=== PATIENT | female | born 1965 | race Caucasian/White ===

== ENCOUNTER 2018-12-17 17:30 | Emergency (ER) | payer OTHER ==
[2018-12-17 17:36] VITALS: RESP 18
--- NOTE | 2018-12-17 18:32 | ED ---
Psych HPI - General Chief Complaint: Psychiatric Symptoms Stated Complaint: Mental Health Time Seen by Provider: 12/17/18 17:44 Source: patient, RN notes reviewed Mode of arrival: ambulatory - History of Present Illness Initial Comments: This is a 53-year-old female with a history depression and suicidal thoughts and states he is feeling very depressed and has suicidal thought chest today but none today. She's been dealing with this for quite a while she states her committed suicide 2002 since that time she's had intermittent thoughts of suicide. No particular plan at this time she states she's feeling better about things today. She still feeling depressed. Also she does states she's been feeling tired lately) chest pain shortness of breath fevers chills or sweats or other symptoms she did have a 60 pound weight gain in about a year but she states she's lost about 40 evidence he is concerned about thyroid disease. MD Complaint: suicidal ideation, feels depressed - Related Data Home Medications Medication Instructions Recorded Confirmed No Known Home Medications 12/17/18 12/17/18 Allergies Allergy/AdvReac Type Severity Reaction Status Date / Time Sulfa (Sulfonamide Allergy Unknown Verified 12/17/18 18:42 Antibiotics) Review of Systems ROS Statement: Those systems with pertinent positive or pertinent negative responses have been documented in the HPI. ROS Other: All systems not noted in ROS Statement are negative. Past Medical History Past Medical History: Thyroid Disorder History of Any Multi-Drug Resistant Organisms: None Reported Past Surgical History: Section, Hysterectomy Past Psychological History: Anxiety, Depression Smoking Status: Former smoker Past Alcohol Use History: None Reported Past Drug Use History: None Reported General Exam - General Exam Comments Initial Comments: This a well-developed well-nourished awake alert oriented 3 female Limitations: no limitations General appearance: alert, in no apparent distress Head exam: Present: atraumatic, normocephalic, normal inspection Eye exam: Present: normal appearance, PERRL, EOMI. Absent: scleral icterus, conjunctival injection, periorbital swelling ENT exam: Present: normal exam, mucous membranes moist Neck exam: Present: normal inspection. Absent: tenderness, meningismus, lymp hadenopathy Respiratory exam: Present: normal lung sounds bilaterally. Absent: respiratory distress, wheezes, rales, rhonchi, stridor Cardiovascular Exam: Present: regular rate, normal rhythm, normal heart sounds. Absent: systolic murmur, diastolic murmur, rubs, gallop, clicks GI/Abdominal exam: Present: soft, normal bowel sounds. Absent: distended, tenderness, guarding, rebound, rigid Extremities exam: Present: normal inspection, full ROM, normal capillary refill. Absent: tenderness, pedal edema, joint swelling, calf tenderness Back exam: Present: normal inspection Neurological exam: Present: alert, oriented X3, CN II-XII intact Psychiatric exam: Present: depressed, flat affect. Absent: suicidal ideation Skin exam: Present: warm, dry, intact, normal color. Absent: rash Course Vital Signs 12/17/18 17:32 Temperature 98.0 F Pulse Rate 65 Respiratory 18 Rate Blood Pressure 127/77 O2 Sat by Pulse 96 Oximetry Medical Decision Making - Medical Decision Making Patient was evaluated by the psychiatric service she will be discharged with outpatient referrals he is not a risk to herself or anyone else at this time. I did discuss her lab findings with her. She will follow-up - Lab Data Result diagrams: 12/17/18 18:37 12/17/18 18:37 Lab Results 12/17/18 12/17/18 12/17/18 Range/Units 18:37 18:37 18:37 WBC 5.7 (3.8-10.6) k/uL RBC 4.40 (3.80-5.40) m/uL Hgb 13.2 (11.4-16.0) gm/dL Hct 39.3 (34.0-46.0) % MCV 89.4 (80.0-100.0) fL MCH 30.0 (25.0-35.0) pg MCHC 33.6 (31.0-37.0) g/dL RDW 13.4 (11.5-15.5) % Plt Count 218 (150-450) k/uL Neutrophils % 53 % Lymphocytes % 37 % Monocytes % 6 % Eosinophils % 2 % Basophils % 1 % Neutrophils # 3.0 (1.3-7.7) k/uL Lymphocytes # 2.1 (1.0-4.8) k/uL Monocytes # 0.3 (0-1.0) k/uL Eosinophils # 0.1 (0-0.7) k/uL Basophils # 0.1 (0-0.2) k/uL Sodium 140 (137-145) mmol/L Potassium 3.6 (3.5-5.1) mmol/L Chloride 107 (98-107) mmol/L Carbon Dioxide 24 (22-30) mmol/L Anion Gap 9 mmol/L BUN 9 (7-17) mg/dL Creatinine 0.60 (0.52-1.04) mg/dL Est GFR (CKD-EPI)AfAm >90 (>60 ml/min/1.73 sqM) Est GFR (CKD-EPI)NonAf >90 (>60 ml/min/1.73 sqM) Glucose 131 H (74-99) mg/dL Calcium 9.6 (8.4-10.2) mg/dL Magnesium 2.2 (1.6-2.3) mg/dL Total Bilirubin 0.5 (0.2-1.3) mg/dL AST 24 (14-36) U/L ALT 19 (9-52) U/L Alkaline Phosphatase 60 (38-126) U/L Creatine Kinase 119 (30-135) U/L Troponin I <0.012 (0.000-0.034) ng/mL Total Protein 7.0 (6.3-8.2) g/dL Albumin 4.5 (3.5-5.0) g/dL TSH 1.170 (0.465-4.680) mIU/L Urine Opiates Screen (NotDetected) Ur Oxycodone Screen (NotDetected) Urine Methadone Screen (NotDetected) Ur Propoxyphene Screen (NotDetected) Ur Barbiturates Screen (NotDetected) U Tricyclic Antidepress (NotDetected) Ur Phencyclidine Scrn (NotDetected) Ur Amphetamines Screen (NotDetected) U Methamphetamines Scrn (NotDetected) U Benzodiazepines Scrn (NotDetected) Urine Cocaine Screen (NotDetected) U Marijuana (THC) Screen (NotDetected) 12/17/18 Range/Units 18:37 WBC (3.8-10.6) k/uL RBC (3.80-5.40) m/uL Hgb (11.4-16.0) gm/dL Hct (34.0-46.0) % MCV (80.0-100.0) fL MCH (25.0-35.0) pg MCHC (31.0-37.0) g/dL RDW (11.5-15.5) % Plt Count (150-450) k/uL Neutrophils % % Lymphocytes % % Monocytes % % Eosinophils % % Basophils % % Neutrophils # (1.3-7.7) k/uL Lymphocytes # (1.0-4.8) k/uL Monocytes # (0-1.0) k/uL Eosinophils # (0-0.7) k/uL Basophils # (0-0.2) k/uL Sodium (137-145) mmol/L Potassium (3.5-5.1) mmol/L Chloride (98-107) mmol/L Carbon Dioxide (22-30) mmol/L Anion Gap mmol/L BUN (7-17) mg/dL Creatinine (0.52-1.04) mg/dL Est GFR (CKD-EPI)AfAm (>60 ml/min/1.73 sqM) Est GFR (CKD-EPI)NonAf (>60 ml/min/1.73 sqM) Glucose (74-99) mg/dL Calcium (8.4-10.2) mg/dL Magnesium (1.6-2.3) mg/dL Total Bilirubin (0.2-1.3) mg/dL AST (14-36) U/L ALT (9-52) U/L Alkaline Phosphatase (38-126) U/L Creatine Kinase (30-135) U/L Troponin I (0.000-0.034) ng/mL Total Protein (6.3-8.2) g/dL Albumin (3.5-5.0) g/dL TSH (0.465-4.680) mIU/L Urine Opiates Screen Not Detected (NotDetected) Ur Oxycodone Screen Not Detected (NotDetected) Urine Methadone Screen Not Detected (NotDetected) Ur Propoxyphene Screen Not Detected (NotDetected) Ur Barbiturates Screen Not Detected (NotDetected) U Tricyclic Antidepress Not Detected (NotDetected) Ur Phencyclidine Scrn Not Detected (NotDetected) Ur Amphetamines Screen Not Detected (NotDetected) U Methamphetamines Scrn Not Detected (NotDetected) U Benzodiazepines Scrn Not Detected (NotDetected) Urine Cocaine Screen Not Detected (NotDetected) U Marijuana (THC) Screen Not Detected (NotDetected) Disposition Clinical Impression: Depression, Adjustment reaction Disposition: HOME SELF-CARE Condition: Good Instructions (If sedation given, give patient instructions): Depression (ED), Mood Disorders (ED) Is patient prescribed a controlled substance at d/c from ED?: No Referrals: None,Stated [Primary Care Provider] - 1-2 days
[2018-12-17 18:51] LABS: Basophils # (A) 0.1 k/uL (0-0.2); Basophils % (A) 1 %; Eosinophils # (A) 0.1 k/uL (0-0.7); Eosinophils % (A) 2 %; HCT 39.3 % (34.0-46.0); HGB 13.2 gm/dL (11.4-16.0); Lymphocytes # (A) 2.1 k/uL (1.0-4.8); Lymphocytes % (A) 37 %; MCHC 33.6 g/dL (31.0-37.0); MCV 89.4 fL (80.0-100.0); Mean Platelet Volume 8.5; Monocytes # (A) 0.3 k/uL (0-1.0); Monocytes % (A) 6 %; Neutrophils % (A) 53 %; Platelet Count 218 k/uL (150-450); RDW 13.4 % (11.5-15.5); WBC 5.7 k/uL (3.8-10.6)
[2018-12-17 19:04] LABS: Amphetamine Screen,Urine Not Detected (NotDetected); Barbiturate Screen,Urine Not Detected (NotDetected); Benzodiazepines Screen,Urine Not Detected (NotDetected); Cocaine Screen,Urine Not Detected (NotDetected); Methadone Screen, Urine Not Detected (NotDetected); Opiate Screen,Urine Not Detected (NotDetected); Oxycodone Screen, Urine Not Detected (NotDetected); Phencyclidine Screen,Urine Not Detected (NotDetected); Tricyclic Antidepressant,Urine Not Detected (NotDetected); Urn Cannabinoid Scrn Not Detected (NotDetected)
[2018-12-17 19:09] LABS: ALT 19 U/L (9-52); AST 24 U/L (14-36); African American GFR (CKD) >90 (>60 ml/min/1.73 sqM); Albumin 4.5 g/dL (3.5-5.0); Alkaline Phosphatase 60 U/L (38-126); Anion Gap 9 mmol/L; Blood Urea Nitrogen 9 mg/dL (7-17); Calcium 9.6 mg/dL (8.4-10.2); Carbon Dioxide 24 mmol/L (22-30); Chloride 107 mmol/L (98-107); Creatine Kinase 119 U/L (30-135); Glucose 131 mg/dL (74-99); Magnesium 2.2 mg/dL (1.6-2.3); Potassium 3.6 mmol/L (3.5-5.1); Sodium 140 mmol/L (137-145); Total Bilirubin 0.5 mg/dL (0.2-1.3)
[2018-12-17 21:49] VITALS: BP 130/69; PULSE 73; TEMP 97.7
== END 2018-12-17 21:49 | disposition home or self-care (01) ==
LOC: EC 17:30
DX: F43.20 Adjustment disorder, unspecified (principal); F32.9 Major depressive disorder, single episode, unspecified; Z88.2 Allergy status to sulfonamides; Z87.891 Personal history of nicotine dependence
CPT/HCPCS: 36415; 80053; 80306; 82075; 82550; 83735; 84443; 84484; 85025; 99285

== ENCOUNTER 2020-10-09 13:40 | Emergency (ER) | payer OTHER ==
[2020-10-09 13:45] VITALS: TEMP 97.8
--- NOTE | 2020-10-09 14:28 | ED ---
General Adult HPI - General Chief complaint: Psychiatric Symptoms Stated complaint: Mental health Time Seen by Provider: 10/09/20 13:46 Source: patient, RN notes reviewed Mode of arrival: ambulatory Limitations: no limitations - History of Present Illness Initial comments: 85-year-old female presents to the emergency room for a chief complaint of lump on chest. Patient reports she has had a lump on her chest wall/epigastric region for at least the past year. States she does not have insurance so has not followed up. Patient reports that her son wanted her checked out for this. Patient also states he wanted her to have a psych evaluation because of her homelessness. States that another hospital when she was admitted she had a psych evaluation automatically because she was homeless. Patient denies any suicidal or homicidal thoughts. Denies depression. Patient is otherwise feeling well aside from noticing this month a year ago.Patient has no other complaints at this time including shortness of breath, chest pain, abdominal pain, nausea or vomiting, headache, or visual changes. - Related Data Home Medications Medication Instructions Recorded Confirmed No Known Home Medications 12/17/18 12/17/18 Allergies Allergy/AdvReac Type Severity Reaction Status Date / Time Sulfa (Sulfonamide Allergy Unknown Verified 10/09/20 13:45 Antibiotics) Review of Systems ROS Statement: Those systems with pertinent positive or pertinent negative responses have been documented in the HPI. ROS Other: All systems not noted in ROS Statement are negative. Past Medical History Past Medical History: Thyroid Disorder History of Any Multi-Drug Resistant Organisms: None Reported Past Surgical History: Section, Hysterectomy Past Psychological History: Anxiety, Depression Smoking Status: Former smoker Past Alcohol Use History: None Reported Past Drug Use History: None Reported General Exam Limitations: no limitations General appearance: alert, in no apparent distress Head exam: Present: atraumatic, normocephalic, normal inspection Eye exam: Present: normal appearance, PERRL, EOMI. Absent: scleral icterus, conjunctival injection, periorbital swelling ENT exam: Present: normal exam, mucous membranes moist Neck exam: Present: normal inspection, full ROM. Absent: tenderness, meningismus, lymphadenopathy Respiratory exam: Present: normal lung sounds bilaterally, other (Patient has a 1 cm x 1 cm nodule noted in this infrasternal area epigastric region.). Absent: respiratory distress, wheezes, rales, rhonchi, stridor Cardiovascular Exam: Present: regular rate, normal rhythm, normal heart sounds. Absent: systolic murmur, diastolic murmur, rubs, gallop, clicks GI/Abdominal exam: Present: soft, normal bowel sounds. Absent: distended, tenderness, guarding, rebound, rigid Neurological exam: Present: alert, oriented X3 Psychiatric exam: Absent: homicidal ideation, suicidal ideation Course Vital Signs 10/09/20 13:42 Temperature 97.8 F Pulse Rate 50 L Respiratory 18 Rate Blood Pressure 117/70 O2 Sat by Pulse 97 Oximetry Medical Decision Making - Medical Decision Making Vitals are stable. Patient is well-appearing. She does not have any suicidal or homicidal thoughts. No thoughts of harming herself. No depression. She simply wanted a psych evaluation for her homelessness. However she reports she does not want any referrals to any shelters. She has been homeless for 3 years now and has been caring for herself. She reports she only came in because her son was worried that she was still homeless. I did attempt to call her son Mario Alberto however he did not answer and his voicemail was full so I could not leave a message. Patient also request I check a urinalysis on her and she has had some dysuria over the past couple days. We will treat her given 6 WBCs and few bacteria as she is symptomatic. She is going to be staying with her sister for the next several days. - Lab Data Lab Results 10/09/20 Range/Units 14:21 Urine Color Colorless Urine Appearance Clear (Clear) Urine pH 5.5 (5.0-8.0) Ur Specific [place] 1.004 (1.001-1.035) Urine Protein Negative (Negative) Urine Glucose (UA) Negative (Negative) Urine Ketones Negative (Negative) Urine Blood Negative (Negative) Urine Nitrite Negative (Negative) Urine Bilirubin Negative (Negative) Urine Urobilinogen <2.0 (<2.0) mg/dL Ur Leukocyte Esterase Large H (Negative) Urine RBC 1 (0-5) /hpf Urine WBC 6 H (0-5) /hpf Ur Squamous Epith Cells 1 (0-4) /hpf Urine Bacteria Few H (None) /hpf Disposition Clinical Impression: UTI (urinary tract infection), Nodule of soft tissue Disposition: HOME SELF-CARE Condition: Good Instructions (If sedation given, give patient instructions): Soft Tissue Mass (ED) Additional Instructions: Please follow up with primary care or general surgery. Return to ER for any worsening symptoms. Is patient prescribed a controlled substance at d/c from ED?: No Referrals: Gideon Ovalle DO [Doctor of Osteopathic Medicine] - 1-2 days Time of Disposition: 14:49
[2020-10-09 14:31] LABS: Appearance,Urine Clear (Clear); Bacteria,Urine Few /hpf; Bilirubin,Urine Negative (Negative); Blood,Urine Negative (Negative); Color,Urine Colorless; Glucose,Urine (UA) Negative (Negative); Ketones,Urine Negative (Negative); Leukocyte Esterase,Urine Large (Negative); Nitrite,Urine Negative (Negative); PH, Urine 5.5 (5.0-8.0); Protein,Urine Negative (Negative); RBC,Urine 1 /hpf (0-5); Specific Gravity,Urine 1.004 (1.001-1.035); Squamous Epithelial Cell,Urine 1 /hpf (0-4); Urobilinogen,Urine <2.0 mg/dL (<2.0); WBC,Urine 6 /hpf (0-5)
[2020-10-09] MEDS ORDERED: CEPHALEXIN 500MG STARTER PACK 4 CAP BTL PO STA (14:46)
[2020-10-09 15:41] VITALS: BP 116/72; PULSE 51; RESP 16
== END 2020-10-09 15:40 | disposition home or self-care (01) ==
LOC: EC 13:40
DX: N39.0 Urinary tract infection, site not specified (principal); R22.2 Localized swelling, mass and lump, trunk; Z59.0 Homelessness; Z87.891 Personal history of nicotine dependence; Z88.2 Allergy status to sulfonamides
CPT/HCPCS: 81001; 99283

== ENCOUNTER 2022-05-12 23:39 | Inpatient (IN) | payer BC, MEDICAID, OTHER ==
[2022-05-13 01:16] LABS: Basophils # (A) 0.1 k/uL (0-0.2); Basophils % (A) 1 %; Eosinophils # (A) 0.1 k/uL (0-0.7); Eosinophils % (A) 2 %; HCT 36.3 % (34.0-46.0); HGB 13.2 gm/dL (11.4-16.0); Lymphocytes # (A) 2.7 k/uL (1.0-4.8); Lymphocytes % (A) 32 %; MCH 31.6 pg (25.0-35.0); MCHC 36.3 g/dL (31.0-37.0); MCV 87.1 fL (80.0-100.0); Mean Platelet Volume 9.8; Monocytes # (A) 0.6 k/uL (0-1.0); Monocytes % (A) 7 %; Neutrophils # (A) 4.6 k/uL (1.3-7.7); Neutrophils % (A) 56 %; Platelet Count 217 k/uL (150-450); RBC 4.16 m/uL (3.80-5.40); RDW 13.6 % (11.5-15.5); WBC 8.3 k/uL (3.8-10.6)
[2022-05-13 01:25] LABS: ALT 32 U/L (4-34); AST 37 U/L (14-36); Acetaminophen <10.0 ug/mL; African American GFR (CKD) >90 (>60 ml/min/1.73 sqM); Albumin 4.1 g/dL (3.5-5.0); Alcohol <10 mg/dL; Alkaline Phosphatase 59 U/L (38-126); Anion Gap 8 mmol/L; Blood Urea Nitrogen 17 mg/dL (7-17); Carbon Dioxide 23 mmol/L (22-30); Chloride 105 mmol/L (98-107); Glucose 94 mg/dL (74-99); Non-African American GFR(CKD) >90 (>60 ml/min/1.73 sqM); Potassium 3.3 mmol/L (3.5-5.1); Salicylate <1.0 mg/dL; Sodium 136 mmol/L (137-145); Total Bilirubin 0.6 mg/dL (0.2-1.3); Total Protein 6.2 g/dL (6.3-8.2)
[2022-05-13 01:28] LABS: Appearance,Urine Clear (Clear); Bacteria,Urine Rare /hpf; Bilirubin,Urine Negative (Negative); Blood,Urine Negative (Negative); Color,Urine Yellow; Glucose,Urine (UA) Trace (Negative); Hyaline Casts,Urine 1 /lpf (0-2); Ketones,Urine Negative (Negative); Leukocyte Esterase,Urine Large (Negative); Mucus,Urine Moderate /hpf; Nitrite,Urine Negative (Negative); PH, Urine 5.5 (5.0-8.0); Protein,Urine Negative (Negative); RBC,Urine 2 /hpf (0-5); Specific Gravity,Urine 1.011 (1.001-1.035); Squamous Epithelial Cell,Urine 1 /hpf (0-4); Transitional Epi Cells,Urine <1 /hpf (0-1); Urobilinogen,Urine <2.0 mg/dL (<2.0); WBC,Urine 19 /hpf (0-5)
[2022-05-13 01:31] LABS: Amphetamine Screen,Urine Not Detected (NotDetected); Barbiturate Screen,Urine Not Detected (NotDetected); Benzodiazepines Screen,Urine Not Detected (NotDetected); Cocaine Screen,Urine Not Detected (NotDetected); Methadone Screen, Urine Not Detected (NotDetected); Opiate Screen,Urine Not Detected (NotDetected); Oxycodone Screen, Urine Not Detected (NotDetected); Phencyclidine Screen,Urine Not Detected (NotDetected); Tricyclic Antidepressant,Urine Not Detected (NotDetected); Urn Cannabinoid Scrn Not Detected (NotDetected)
--- NOTE | 2022-05-13 02:08 | ED ---
Psych HPI - General Chief Complaint: Psychiatric Symptoms Stated Complaint: mental health Time Seen by Provider: 05/13/22 00:47 Source: EMS Mode of arrival: EMS Limitations: physical limitation (Patient declined to give history) - History of Present Illness Initial Comments: This patient is 56-year-old woman who reportedly has history of psychiatric dis order brought to have psychiatric evaluation. The patient reportedly had been found by local police standing in front of her vehicle and then was not explaining how she came to be there are what she was doing. On arrival here, patient not forthcoming regarding this. She did speak a few words to my colleague but was not forthcoming with me. MD Complaint: altered mental status -: unknown History of same: Yes - Related Data Previous Rx's Medication Instructions Recorded Cephalexin [Keflex] 500 mg PO BID 7 Days #14 cap 10/09/20 Allergies Allergy/AdvReac Type Severity Reaction Status Date / Time Sulfa (Sulfonamide Allergy Unknown Verified 05/13/22 04:43 Antibiotics) Review of Systems ROS Statement: Those systems with pertinent positive or pertinent negative responses have been documented in the HPI. ROS Other: All systems not noted in ROS Statement are negative. Limitations: ROS unobtainable due to patients medical condition (Patient declines to give history) Past Medical History Past Medical History: Thyroid Disorder History of Any Multi-Drug Resistant Organisms: None Reported Past Surgical History: Section, Hysterectomy Past Psychological History: Anxiety, Depression Smoking Status: Former smoker Past Alcohol Use History: None Reported Past Drug Use History: None Reported General Exam Limitations: no limitations General appearance: alert, in no apparent distress Head exam: Present: atraumatic, normocephalic Eye exam: Present: normal appearance. Absent: scleral icterus, conjunctival injection Neck exam: Present: normal inspection, full ROM. Absent: tenderness Respiratory exam: Present: normal lung sounds bilaterally. Absent: respiratory distress, wheezes, rales, rhonchi, stridor Cardiovascular Exam: Present: regular rate, normal rhythm, normal heart sounds. Absent: systolic murmur, diastolic murmur, rubs, gallop GI/Abdominal exam: Present: soft. Absent: distended, tenderness, guarding, rebo und, rigid, mass Extremities exam: Present: normal inspection, normal capillary refill. Absent: pedal edema Back exam: Present: normal inspection Neurological exam: Present: alert, CN II-XII intact. Absent: motor sensory de ficit Psychiatric exam: Present: other (Patient is noncompliant with psychiatric exam) Skin exam: Present: warm, dry, intact, normal color. Absent: rash Course Vital Signs 05/12/22 05/12/22 23:46 23:50 Temperature 98.6 F Pulse Rate 62 Respiratory 16 16 Rate Blood Pressure 124/78 O2 Sat by Pulse 99 Oximetry Medical Decision Making - Lab Data Result diagrams: 05/13/22 01:04 05/13/22 01:04 Lab Results 05/13/22 05/13/22 05/13/22 Range/Units 01:04 01:04 01:04 WBC 8.3 (3.8-10.6) k/uL RBC 4.16 (3.80-5.40) m/uL Hgb 13.2 (11.4-16.0) gm/dL Hct 36.3 (34.0-46.0) % MCV 87.1 (80.0-100.0) fL MCH 31.6 (25.0-35.0) pg MCHC 36.3 (31.0-37.0) g/dL RDW 13.6 (11.5-15.5) % Plt Count 217 (150-450) k/uL MPV 9.8 Neutrophils % 56 % Lymphocytes % 32 % Monocytes % 7 % Eosinophils % 2 % Basophils % 1 % Neutrophils # 4.6 (1.3-7.7) k/uL Lymphocytes # 2.7 (1.0-4.8) k/uL Monocytes # 0.6 (0-1.0) k/uL Eosinophils # 0.1 (0-0.7) k/uL Basophils # 0.1 (0-0.2) k/uL Sodium 136 L (137-145) mmol/L Potassium 3.3 L (3.5-5.1) mmol/L Chloride 105 (98-107) mmol/L Carbon Dioxide 23 (22-30) mmol/L Anion Gap 8 mmol/L BUN 17 (7-17) mg/dL Creatinine 0.54 (0.52-1.04) mg/dL Est GFR (CKD-EPI)AfAm >90 (>60 ml/min/1.73 sqM) Est GFR (CKD-EPI)NonAf >90 (>60 ml/min/1.73 sqM) Glucose 94 (74-99) mg/dL Estimated Ave Glu mg/dL Hemoglobin A1c (0.0-6.0) % Calcium 9.0 (8.4-10.2) mg/dL Total Bilirubin 0.6 (0.2-1.3) mg/dL Conjugated Bilirubin (0.0-0.3) mg/dL Unconjugated Bilirubin (0.0-1.1) mg/dL Delta Bilirubin (0.0-0.2) mg/dL AST 37 H (14-36) U/L ALT 32 (4-34) U/L Alkaline Phosphatase 59 (38-126) U/L Ammonia <9 (<30) umol/L Total Protein 6.2 L (6.3-8.2) g/dL Albumin 4.1 (3.5-5.0) g/dL Triglycerides (0.00-149.00) mg/dL Cholesterol (0.00-200.00) mg/dL LDL Cholesterol, Calc (0.0-131.0) mg/dL VLDL Cholesterol, Calc (5.00-40.00) mg/dL HDL Cholesterol (40.00-60.00) mg/dL Cholesterol/HDL Ratio Ratio TSH (0.465-4.680) mIU/L Urine Color Urine Appearance (Clear) Urine pH (5.0-8.0) Ur Specific [place] (1.001-1.035) Urine Protein (Negative) Urine Glucose (UA) (Negative) Urine Ketones (Negative) Urine Blood (Negative) Urine Nitrite (Negative) Urine Bilirubin (Negative) Urine Urobilinogen (<2.0) mg/dL Ur Leukocyte Esterase (Negative) Urine RBC (0-5) /hpf Urine WBC (0-5) /hpf Ur Squamous Epith Cells (0-4) /hpf Ur Transition Epith Cell (0-1) /hpf Urine Bacteria (None) /hpf Hyaline Casts (0-2) /lpf Urine Mucus (None) /hpf Salicylates <1.0 mg/dL Urine Opiates Screen (NotDetected) Ur Oxycodone Screen (NotDetected) Urine Methadone Screen (NotDetected) Ur Propoxyphene Screen (NotDetected) Acetaminophen <10.0 ug/mL Ur Barbiturates Screen (NotDetected) U Tricyclic Antidepress (NotDetected) Ur Phencyclidine Scrn (NotDetected) Ur Amphetamines Screen (NotDetected) U Methamphetamines Scrn (NotDetected) U Benzodiazepines Scrn (NotDetected) Urine Cocaine Screen (NotDetected) U Marijuana (THC) Screen (NotDetected) Serum Alcohol <10 mg/dL Coronavirus (PCR) (Not Detectd) 05/13/22 05/13/22 05/13/22 Range/Units 01:04 01:04 01:11 WBC (3.8-10.6) k/uL RBC (3.80-5.40) m/uL Hgb (11.4-16.0) gm/dL Hct (34.0-46.0) % MCV (80.0-100.0) fL MCH (25.0-35.0) pg MCHC (31.0-37.0) g/dL RDW (11.5-15.5) % Plt Count (150-450) k/uL MPV Neutrophils % % Lymphocytes % % Monocytes % % Eosinophils % % Basophils % % Neutrophils # (1.3-7.7) k/uL Lymphocytes # (1.0-4.8) k/uL Monocytes # (0-1.0) k/uL Eosinophils # (0-0.7) k/uL Basophils # (0-0.2) k/uL Sodium (137-145) mmol/L Potassium (3.5-5.1) mmol/L Chloride (98-107) mmol/L Carbon Dioxide (22-30) mmol/L Anion Gap mmol/L BUN (7-17) mg/dL Creatinine (0.52-1.04) mg/dL Est GFR (CKD-EPI)AfAm (>60 ml/min/1.73 sqM) Est GFR (CKD-EPI)NonAf (>60 ml/min/1.73 sqM) Glucose (74-99) mg/dL Estimated Ave Glu mg/dL 106 Hemoglobin A1c 5.3 (0.0-6.0) % Calcium (8.4-10.2) mg/dL Total Bilirubin 0.3 (0.2-1.3) mg/dL Conjugated Bilirubin 0.0 (0.0-0.3) mg/dL Unconjugated Bilirubin 0.1 (0.0-1.1) mg/dL Delta Bilirubin 0.2 (0.0-0.2) mg/dL AST 38 H (14-36) U/L ALT 32 (4-34) U/L Alkaline Phosphatase 58 (38-126) U/L Ammonia (<30) umol/L Total Protein 6.2 L (6.3-8.2) g/dL Albumin 4.0 (3.5-5.0) g/dL Triglycerides 58.60 (0.00-149.00) mg/dL Cholesterol 168.00 (0.00-200.00) mg/dL LDL Cholesterol, Calc 92.0 (0.0-131.0) mg/dL VLDL Cholesterol, Calc 11.72 (5.00-40.00) mg/dL HDL Cholesterol 64.30 H (40.00-60.00) mg/dL Cholesterol/HDL Ratio 2.61 Ratio TSH 2.810 (0.465-4.680) mIU/L Urine Color Yellow Urine Appearance Clear (Clear) Urine pH 5.5 (5.0-8.0) Ur Specific [place] 1.011 (1.001-1.035) Urine Protein Negative (Negative) Urine Glucose (UA) Trace H (Negative) Urine Ketones Negative (Negative) Urine Blood Negative (Negative) Urine Nitrite Negative (Negative) Urine Bilirubin Negative (Negative) Urine Urobilinogen <2.0 (<2.0) mg/dL Ur Leukocyte Esterase Large H (Negative) Urine RBC 2 (0-5) /hpf Urine WBC 19 H (0-5) /hpf Ur Squamous Epith Cells 1 (0-4) /hpf Ur Transition Epith Cell <1 (0-1) /hpf Urine Bacteria Rare H (None) /hpf Hyaline Casts 1 (0-2) /lpf Urine Mucus Moderate H (None) /hpf Salicylates mg/dL Urine Opiates Screen Not Detected (NotDetected) Ur Oxycodone Screen Not Detected (NotDetected) Urine Methadone Screen Not Detected (NotDetected) Ur Propoxyphene Screen Not Detected (NotDetected) Acetaminophen ug/mL Ur Barbiturates Screen Not Detected (NotDetected) U Tricyclic Antidepress Not Detected (NotDetected) Ur Phencyclidine Scrn Not Detected (NotDetected) Ur Amphetamines Screen Not Detected (NotDetected) U Methamphetamines Scrn Not Detected (NotDetected) U Benzodiazepines Scrn Not Detected (NotDetected) Urine Cocaine Screen Not Detected (NotDetected) U Marijuana (THC) Screen Not Detected (NotDetected) Serum Alcohol mg/dL Coronavirus (PCR) (Not Detectd) 05/13/22 Range/Units 03:48 WBC (3.8-10.6) k/uL RBC (3.80-5.40) m/uL Hgb (11.4-16.0) gm/dL Hct (34.0-46.0) % MCV (80.0-100.0) fL MCH (25.0-35.0) pg MCHC (31.0-37.0) g/dL RDW (11.5-15.5) % Plt Count (150-450) k/uL MPV Neutrophils % % Lymphocytes % % Monocytes % % Eosinophils % % Basophils % % Neutrophils # (1.3-7.7) k/uL Lymphocytes # (1.0-4.8) k/uL Monocytes # (0-1.0) k/uL Eosinophils # (0-0.7) k/uL Basophils # (0-0.2) k/uL Sodium (137-145) mmol/L Potassium (3.5-5.1) mmol/L Chloride (98-107) mmol/L Carbon Dioxide (22-30) mmol/L Anion Gap mmol/L BUN (7-17) mg/dL Creatinine (0.52-1.04) mg/dL Est GFR (CKD-EPI)AfAm (>60 ml/min/1.73 sqM) Est GFR (CKD-EPI)NonAf (>60 ml/min/1.73 sqM) Glucose (74-99) mg/dL Estimated Ave Glu mg/dL Hemoglobin A1c (0.0-6.0) % Calcium (8.4-10.2) mg/dL Total Bilirubin (0.2-1.3) mg/dL Conjugated Bilirubin (0.0-0.3) mg/dL Unconjugated Bilirubin (0.0-1.1) mg/dL Delta Bilirubin (0.0-0.2) mg/dL AST (14-36) U/L ALT (4-34) U/L Alkaline Phosphatase (38-126) U/L Ammonia (<30) umol/L Total Protein (6.3-8.2) g/dL Albumin (3.5-5.0) g/dL Triglycerides (0.00-149.00) mg/dL Cholesterol (0.00-200.00) mg/dL LDL Cholesterol, Calc (0.0-131.0) mg/dL VLDL Cholesterol, Calc (5.00-40.00) mg/dL HDL Cholesterol (40.00-60.00) mg/dL Cholesterol/HDL Ratio Ratio TSH (0.465-4.680) mIU/L Urine Color Urine Appearance (Clear) Urine pH (5.0-8.0) Ur Specific [place] (1.001-1.035) Urine Protein (Negative) Urine Glucose (UA) (Negative) Urine Ketones (Negative) Urine Blood (Negative) Urine Nitrite (Negative) Urine Bilirubin (Negative) Urine Urobilinogen (<2.0) mg/dL Ur Leukocyte Esterase (Negative) Urine RBC (0-5) /hpf Urine WBC (0-5) /hpf Ur Squamous Epith Cells (0-4) /hpf Ur Transition Epith Cell (0-1) /hpf Urine Bacteria (None) /hpf Hyaline Casts (0-2) /lpf Urine Mucus (None) /hpf Salicylates mg/dL Urine Opiates Screen (NotDetected) Ur Oxycodone Screen (NotDetected) Urine Methadone Screen (NotDetected) Ur Propoxyphene Screen (NotDetected) Acetaminophen ug/mL Ur Barbiturates Screen (NotDetected) U Tricyclic Antidepress (NotDetected) Ur Phencyclidine Scrn (NotDetected) Ur Amphetamines Screen (NotDetected) U Methamphetamines Scrn (NotDetected) U Benzodiazepines Scrn (NotDetected) Urine Cocaine Screen (NotDetected) U Marijuana (THC) Screen (NotDetected) Serum Alcohol mg/dL Coronavirus (PCR) Not Detected (Not Detectd) - EKG Data -: EKG Interpreted by [facility] EKG shows normal: sinus rhythm, axis (Normal), intervals (Normal), QRS complexes (Normal), ST-T waves (Normal) Rate: normal (Rate 61 bpm) Interpretation: normal EKG Disposition Clinical Impression: Acute psychosis Disposition: ADMITTED IP TO THIS HOSP Condition: Fair Is patient prescribed a controlled substance at d/c from ED?: No
[2022-05-13] MEDS ORDERED: MAGNESIUM HYDROXIDE 2,400 MG/10 ML CUP PO PRN (04:40)
[2022-05-13] MEDS ORDERED: ACETAMINOPHEN TAB 325 MG TAB PO PRN (04:40)
[2022-05-13] MEDS ORDERED: MAG HYDROX/AL HYDROX/SIMETH 30 ML CUP PO PRN (04:40)
[2022-05-13] MEDS ORDERED: LORazepam 1 MG TAB PO PRN (04:40)
[2022-05-13] MEDS ORDERED: HALOPERIDOL LACTATE 5 MG/ML 1 ML VIAL IM PRN (04:40)
[2022-05-13] MEDS ORDERED: LORazepam 2 MG/ML INJ IM PRN (04:41)
[2022-05-13] MEDS ORDERED: haloperidoL 5 MG TAB PO PRN (04:42)
[2022-05-13] MEDS ORDERED: FLUoxetine HCL 20 MG CAP PO STA (11:19)
--- NOTE | 2022-05-13 13:22 | P.HP ---
Psychiatric H&P - . H&P Date: 05/13/22 History & Physical: Allergies Allergy/AdvReac Type Severity Reaction Status Date / Time Sulfa (Sulfonamide Allergy Unknown Verified 05/13/22 04:43 Antibiotics) Vital Signs Temp 97.8 F 05/13/22 05:03 Pulse 68 05/13/22 05:03 Resp 15 05/13/22 05:03 BP 103/65 05/13/22 05:03 Pulse Ox 100 05/13/22 05:03 FiO2 Intake & Output 05/12/22 05/13/22 05/13/22 18:59 06:59 18:59 Weight 63.645 kg Laboratory Last Values WBC 8.3 k/uL (3.8-10.6) 05/13/22 01:04 RBC 4.16 m/uL (3.80-5.40) 05/13/22 01:04 Hgb 13.2 gm/dL (11.4-16.0) 05/13/22 01:04 Hct 36.3 % (34.0-46.0) 05/13/22 01:04 MCV 87.1 fL (80.0-100.0) 05/13/22 01:04 MCH 31.6 pg (25.0-35.0) 05/13/22 01:04 MCHC 36.3 g/dL (31.0-37.0) 05/13/22 01:04 RDW 13.6 % (11.5-15.5) 05/13/22 01:04 Plt Count 217 k/uL (150-450) 05/13/22 01:04 MPV 9.8 05/13/22 01:04 Neutrophils % 56 % 05/13/22 01:04 Lymphocytes % 32 % 05/13/22 01:04 Monocytes % 7 % 05/13/22 01:04 Eosinophils % 2 % 05/13/22 01:04 Basophils % 1 % 05/13/22 01:04 Neutrophils # 4.6 k/uL (1.3-7.7) 05/13/22 01:04 Lymphocytes # 2.7 k/uL (1.0-4.8) 05/13/22 01:04 Monocytes # 0.6 k/uL (0-1.0) 05/13/22 01:04 Eosinophils # 0.1 k/uL (0-0.7) 05/13/22 01:04 Basophils # 0.1 k/uL (0-0.2) 05/13/22 01:04 Sodium 136 mmol/L (137-145) L 05/13/22 01:04 Potassium 3.3 mmol/L (3.5-5.1) L 05/13/22 01:04 Chloride 105 mmol/L (98-107) 05/13/22 01:04 Carbon Dioxide 23 mmol/L (22-30) 05/13/22 01:04 Anion Gap 8 mmol/L 05/13/22 01:04 BUN 17 mg/dL (7-17) 05/13/22 01:04 Creatinine 0.54 mg/dL (0.52-1.04) 05/13/22 01:04 Est GFR (CKD-EPI)AfAm >90 (>60 ml/min/1.73 sqM) 05/13/22 01:04 Est GFR (CKD-EPI)NonAf >90 (>60 ml/min/1.73 sqM) 05/13/22 01:04 Glucose 94 mg/dL (74-99) 05/13/22 01:04 Calcium 9.0 mg/dL (8.4-10.2) 05/13/22 01:04 Total Bilirubin 0.6 mg/dL (0.2-1.3) 05/13/22 01:04 AST 37 U/L (14-36) H 05/13/22 01:04 ALT 32 U/L (4-34) 05/13/22 01:04 Alkaline Phosphatase 59 U/L (38-126) 05/13/22 01:04 Ammonia <9 umol/L (<30) 05/13/22 01:04 Total Protein 6.2 g/dL (6.3-8.2) L 05/13/22 01:04 Albumin 4.1 g/dL (3.5-5.0) 05/13/22 01:04 Urine Color Yellow 05/13/22 01:11 Urine Appearance Clear (Clear) 05/13/22 01:11 Urine pH 5.5 (5.0-8.0) 05/13/22 01:11 Ur Specific [place] 1.011 (1.001-1.035) 05/13/22 01:11 Urine Protein Negative (Negative) 05/13/22 01:11 Urine Glucose (UA) Trace (Negative) H 05/13/22 01:11 Urine Ketones Negative (Negative) 05/13/22 01:11 Urine Blood Negative (Negative) 05/13/22 01:11 Urine Nitrite Negative (Negative) 05/13/22 01:11 Urine Bilirubin Negative (Negative) 05/13/22 01:11 Urine Urobilinogen <2.0 mg/dL (<2.0) 05/13/22 01:11 Ur Leukocyte Esterase Large (Negative) H 05/13/22 01:11 Urine RBC 2 /hpf (0-5) 05/13/22 01:11 Urine WBC 19 /hpf (0-5) H 05/13/22 01:11 Ur Squamous Epith Cells 1 /hpf (0-4) 05/13/22 01:11 Ur Transition Epith Cell <1 /hpf (0-1) 05/13/22 01:11 Urine Bacteria Rare /hpf (None) H 05/13/22 01:11 Hyaline Casts 1 /lpf (0-2) 05/13/22 01:11 Urine Mucus Moderate /hpf (None) H 05/13/22 01:11 Salicylates <1.0 mg/dL 05/13/22 01:04 Urine Opiates Screen Not Detected (NotDetected) 05/13/22 01:11 Ur Oxycodone Screen Not Detected (NotDetected) 05/13/22 01:11 Urine Methadone Screen Not Detected (NotDetected) 05/13/22 01:11 Ur Propoxyphene Screen Not Detected (NotDetected) 05/13/22 01:11 Acetaminophen <10.0 ug/mL 05/13/22 01:04 Ur Barbiturates Screen Not Detected (NotDetected) 05/13/22 01:11 U Tricyclic Antidepress Not Detected (NotDetected) 05/13/22 01:11 Ur Phencyclidine Scrn Not Detected (NotDetected) 05/13/22 01:11 Ur Amphetamines Screen Not Detected (NotDetected) 05/13/22 01:11 U Methamphetamines Scrn Not Detected (NotDetected) 05/13/22 01:11 U Benzodiazepines Scrn Not Detected (NotDetected) 05/13/22 01:11 Urine Cocaine Screen Not Detected (NotDetected) 05/13/22 01:11 U Marijuana (THC) Screen Not Detected (NotDetected) 05/13/22 01:11 Serum Alcohol <10 mg/dL 05/13/22 01:04 Coronavirus (PCR) Not Detected (Not Detectd) 05/13/22 03:48 05/13/22 13:21 IDENTIFYING DATA: Patient is a , recently unemployed, 56-year-old female who presented to our hospital under petition and certification for bizarre behavior and worsening depressive symptoms. HPI: Patient presented to the hospital on 05/13/2022, brought in by EMS under petition and certification for worsening depression and bizarre behavior. The patient was noted to be outside without a coat in the cold wandering back and forth in front of her car. When interviewed by a passing police judge, the patient was unable to verbalize why she was there and what she was doing. The patient also is calmly brought by EMS to the emergency department. The patient did endorse significant symptoms of depression to the EPS nurse and was subsequently admitted to our psychiatric unit. Upon evaluation on the psychiatric unit, the patient reports that she has been "dealing with depression for a while now." She reports that she has been dealing with depression since her 30s, especially worse after her committed suicide in 2002. She endorses significant symptoms of depression including anhedonia, decreased hygiene and grooming, low energy, poor sleep, and generalized feelings of sadness and tearfulness. She however did vehemently denies any suicidal ideation or homicidal ideation. She reports no previous attempts at suicide..In regards her hygiene and grooming, the patient reports that she has not showered in a few days. The patient states that she has numerous stressors including her homelessness as she has been living in her car and most recently was staying with her sister as well as her recent unemployment. She reports that she was fired from [employer] this week. In regards other mood symptoms, the patient is not endorsing any significant history of bipolar disorder. She reports no periods of excessive energy, grandiosity, or mood lability. She denies any significant history of auditory or visual hallucinations. She reports no paranoia or other delusions. The patient signed herself voluntarily to the psychiatric unit. PAST PSYCHIATRIC HISTORY: Patient states that she has been intrusive diagnosed depression and anxiety. The patient is able to recall being previously prescribed Haldol and BuSpar. She reports one prior psychiatric hospitalization, "somewhere in [place]" approximately one to 2 years ago. Patient denies any psychiatric outpatient follow-up. Patient denies any history of suicide attempts in the past. PMH: Past Medical History: Thyroid Disorder History of Any Multi-Drug Resistant Organisms: None Reported Past Surgical History: Section, Hysterectomy Past Psychological History: Anxiety, Depression Smoking Status: Former smoker Past Alcohol Use History: None Reported Past Drug Use History: None Reported ALLERGIES: Sulfa CHEMICAL DEPENDENCY HISTORY: Patient denies any tobacco, alcohol, marijuana, or illicit drug use. FAMILY PSYCHIATRIC/SUBSTANCE USE HISTORY: No reported family psychiatric history. SOCIAL HISTORY: Patient was born in [place], [place] and raised in [place], [place]. She has 2 adult children ages 30 and 32 who currently livesconstant. She has been as of 2002 after her of 8 years committed suicide. She graduated high school. She reports the Church guerline. She denies any legal problems. She was recently employed however terminated from her job at [employer] this past week. She is currently homeless. She does report some support from her sister. MENTAL STATUS EXAM: General Appearance: Patient appears to be stated age is alert, directable, and attempts to cooperate. Patient appears to have very disheveled hygiene and grooming. Behavior: Patient is seated without any agitated behavior.. Psychomotor slowing is evident. Eye contact is intermittent. Speech: Patient's speech is unspontaneous, monotone, low in volume. Mood/Affect: Patient reports their mood is depressed, affect is congruent and withdrawn. Tearful. Suicidality/Homicidality: Patient denies having any homicidal ideation intent or plan. Denies any suicidal ideations intent or plan Perceptions: Patient denies any visual hallucinations and denies any auditory hallucinations Though content/process: The patient appears to display some thought blocking. No delusional thought content is endorsed. Memory and concentration: AOX3, grossly intact for the purposes of this session. Can spell "WORLD" backwards Judgment and insight: Fair STRENGTHS/WEAKNESSES: Strength is that the patient is resilient. Weakness is that the patient has severe mental illness and a strong predisposition to mental illness due to the suicide of her . INTELLECT: average IMPRESSIONS: Major depressive disorder, recurrent, severe PLAN: -Patient is admitted under voluntary status to [facility] for stabilization of psychiatric symptoms and safety. Patient signed adult voluntary form and medication consent and is placed in patient's chart. -Medications : Will start patient on Prozac 20 mg by mouth daily for depression/anxiety Remeron 7.5 mg by mouth at bedtime for insomnia/depression/appetite stimulation -Ativan and Haldol PRN for agitation/aggression -Patient was informed of the risks, benefits and side effects of the medication and patient verbally consented to taking the medications. Patient signed med consent form and was placed in chart. -Internal Medicine consult to perform medical evaluation and physical. -SW on board for discharge planning. Encourage patient to participate in groups to work on coping skills. 05/13/22 13:22
[2022-05-13] MEDS ORDERED: LORazepam 2 MG/ML INJ IM STA ×2 (13:59→14:29)
[2022-05-13] MEDS: LORazepam 1 MG TAB PO SCH ×2 (15:33→20:14)
[2022-05-13] MEDS ORDERED: MIRTAZAPINE 15 MG TAB PO SCH (21:00)
[2022-05-14] MEDS: LORazepam 1 MG TAB PO SCH ×4 (08:56→21:17)
[2022-05-14] MEDS ORDERED: FLUoxetine HCL 10 MG CAP PO SCH (09:00)
[2022-05-14 09:50] LABS: ALT 32 U/L (4-34); AST 38 U/L (14-36); Alkaline Phosphatase 58 U/L (38-126); Bilirubin, Delta 0.2 mg/dL (0.0-0.2); Bilirubin,Unconjugated 0.1 mg/dL (0.0-1.1); Total Bilirubin 0.3 mg/dL (0.2-1.3); Total Protein 6.2 g/dL (6.3-8.2)
--- NOTE | 2022-05-14 10:01 | P.PN ---
Subjective Progress Note Date: 05/14/22 Principal diagnosis: Major depression recurrent severe The patient was seen standing and staring at the bulletin board in the [place]. She came but I had to catch her attention and she seemed to be elsewhere in her mind. She did not look at me as the entire time. She chose to leave the door to the interview room open and seemed paranoid. She spoke softly but answered the questions logically. She said that she just had gotten overwhelmed, that she did struggle with some low-grade chronic depression but does not like to take medications. She felt that Prozac was a, "strong" medicine. She did acknowledge that she has slept well last night on the mirtazapine and although she did not want to take any medication and just wanted to be strong and poor self out of this depression she was willing to take mirtazapine not the Prozac. She says that she is depressed because she lost her job, but then she says that she lost her job because she didn't bother to go to work or call and which sounds like she was already badly depressed. She has been taking Ativan for anxiety and that helps some but her anxiety still seems strong. She denies now or in the past that she was suicidal. Assessment the patient is minimizing the severity of her symptoms. She is clearly depressed anxious possibly paranoid it is hard for me to tell because of her minimization. She clearly is dysfunctional she can't look someone in the eye response times are slow energy is low anxiety is high she needs to be in the hospital for her safety and to increase the chance that she will actually take some medicine and start to get better. Diagnosis remains major depression recurrent severe Plan increase mirtazapine to a therapeutic dose of 30.(She tolerated the 7.5 and mirtazapine's side effects stayed the same or get better at higher doses) I'm going to increase the mirtazapine to 30 and hold the morning Prozac mostly for patient compliance as she would do more positive about medicine whose name she does not recognize and that did help her sleep and just 1 medicine a day. Mirtazapine is triple action and will probably do the job. I encouraged her to go to groups. She states that she wants to learn how to do well without medicine. I told her that she could get good pointers in the groups as to how to live in a healthy way. Objective - Vital Signs Vital signs: Vital Signs Temp 97.9 F 05/14/22 06:20 Pulse 60 05/14/22 06:20 Resp 16 05/14/22 06:20 BP 98/54 05/14/22 06:20 Pulse Ox 99 05/14/22 06:20 FiO2 - Labs CBC & Chem 7: 05/13/22 01:04 05/13/22 01:04 Labs: Abnormal Lab Results - Last 24 Hours (Table) 05/13/22 Range/Units 01:04 AST 38 H (14-36) U/L Total Protein 6.2 L (6.3-8.2) g/dL Microbiology - Last 24 Hours (Table) 05/13/22 01:11 Urine Culture - Preliminary Urine,Voided
[2022-05-14 20:40] LABS: Chol/HDL Ratio 2.61 Ratio; VLDL Calculation 11.72 mg/dL (5.00-40.00)
[2022-05-14] MEDS: MIRTAZAPINE 15 MG TAB PO SCH ×2 (21:11→21:17)
[2022-05-15] MEDS: LORazepam 1 MG TAB PO SCH ×3 (09:13→21:00)
--- NOTE | 2022-05-15 09:30 | P.PN ---
Subjective Progress Note Date: 05/15/22 Principal diagnosis: Major depression recurrent severe Subjective: She says she is trying to work on coping skills such as reading the Bible walking. She is also gone to groups to try to senior occupational therapist coping skills. She says she was able to sleep Objective: The patient was shuffling slowly down the [place] making no eye contact and having very little body movementl. She came but I had to catch her attention and she seemed to be elsewhere in her mind. She did not look at me the entire time. She seemed more comfortable today and that she closed the door behind us. She was also more into what was happening around her, and when I ended the session and walked with her to the door she was going to allow me to exit first and hold the door for me. She spoke softly but answered the questions logically. She walks slowly with her arms crossed. Response times seemed a little better than yesterday Assessment the patient is minimizing the severity of her symptoms. She is ann rly depressed anxious possibly paranoid it is hard for me to tell because of her minimization. She clearly is dysfunctional she can't look someone in the eye, response times are slow, energy is low, anxiety is high she needs to be in the hospital for her safety and to increase the chance that she will actually take some medicine and start to get better. Diagnosis remains major depression recurrent severe Plan : Continue mirtazapine at a therapeutic dose of 30.. Mirtazapine is triple action and will probably do the job. I encouraged her to go to groups. She states that she wants to learn how to do well without medicine. I told her that she could get good pointers in the groups as to how to live in a healthy way and how to cope better. Objective - Vital Signs Vital signs: Vital Signs Temp 97.9 F 05/14/22 06:20 Pulse 60 05/14/22 06:20 Resp 16 05/14/22 06:20 BP 98/54 05/14/22 06:20 Pulse Ox 99 05/14/22 06:20 FiO2 - Labs CBC & Chem 7: 05/13/22 01:04 05/13/22 01:04 Labs: Abnormal Lab Results - Last 24 Hours (Table) 05/13/22 Range/Units 01:04 AST 38 H (14-36) U/L Total Protein 6.2 L (6.3-8.2) g/dL HDL Cholesterol 64.30 H (40.00-60.00) mg/dL Microbiology - Last 24 Hours (Table) 05/13/22 01:11 Urine Culture - Preliminary Urine,Voided Gram Neg Bacilli
[2022-05-15] MEDS: MIRTAZAPINE 15 MG TAB PO SCH (21:00)
[2022-05-15] MEDS: NITROFURANTOIN MONOHYD/M-CRYST 100 MG CAP PO SCH (21:00)
--- NOTE | 2022-05-16 05:05 | P.PN ---
Progress Note - Text Progress Note Date: 05/15/22 Attempted to see the patient in the mental health unit at 2200 on 05/15/22. The patient refused to be seen or be evaluated.
[2022-05-16] MEDS: NITROFURANTOIN MONOHYD/M-CRYST 100 MG CAP PO SCH ×2 (09:13→21:36)
[2022-05-16] MEDS: LORazepam 1 MG TAB PO SCH ×3 (09:14→21:38)
--- NOTE | 2022-05-16 11:58 | P.PN ---
Progress Note - Text Progress Note Date: 05/16/22 Interval History: Patient was seen wandering the hallways however was not agreeable to speak with short story writer in the office. The patient appears to be pacing back and forth in the same general area in front of this provider's office. The patient did endorse suicidal ideation however refuses to elaborate. When asked whether she is willing to take medications or speak with his provider, the patient denies the need to at this time. She was informed that he would likely pursue involuntary psychiatric admission and the clinical court order if she continues to refuse treatment out of concern for her mental health and well-being. The patient then became more spontaneous in speech. She states that she will take medications. She is otherwise uncooperative for the psychiatric interview. Mental Status Exam: General Appearance: Patient appears to be stated age is alert, not directable or cooperative. Behavior: Patient is constantly pacing back and forth in the same area in front of this provider's office. Poor eye contact. Speech: Patient's speech is nonspontaneous, slow to respond. Mood/Affect: Mood is "okay." Affect is flat. Suicidality/Homicidality: Patient reports suicidal ideation but no homicidal ideation. Perceptions: Patient refuses to answer. Though content/process: Poverty of thought is evident. Memory and concentration: Patient refuses to answer. Judgment and insight: Poor Vital Signs Temp 97.9 F 05/14/22 06:20 Pulse 60 05/14/22 06:20 Resp 16 05/14/22 06:20 BP 98/54 05/14/22 06:20 Pulse Ox 99 05/14/22 06:20 FiO2 Assessment Major depressive disorder, recurrent, severe, with catatonia Plan: -Patient continues to meet criteria for inpatient psychiatric admission for symptom stabilization and safety. Patient has signed adult voluntary form and medication consent and was placed in patient's chart. Should the patient continued to refuse psychiatric assessment and ordered medications, we will pursue an involuntary admission process. -Medications: Continue Remeron 30 mg by mouth at bedtime for depression/appetite stimulation Continue Ativan 2 mg by mouth 3 times a day for catatonia Start Zyprexa 2.5 mg by mouth twice a day for treatment resistant depression -When necessary Ativan and Haldol for agitation/aggression. -SW on board for discharge planning. Encouraged the patient to participate in milieu.
[2022-05-16] MEDS ORDERED: LORazepam 2 MG/ML INJ IM PRN (13:39)
[2022-05-16] MEDS ORDERED: LORazepam 1 MG TAB PO SCH (21:00)
[2022-05-16] MEDS: MIRTAZAPINE 15 MG TAB PO SCH (21:36)
[2022-05-16] MEDS: OLANZapine 2.5 MG TAB PO SCH (21:36)
[2022-05-17] MEDS: LORazepam 1 MG TAB PO SCH ×3 (08:33→21:32)
[2022-05-17] MEDS: NITROFURANTOIN MONOHYD/M-CRYST 100 MG CAP PO SCH ×2 (08:34→21:33)
[2022-05-17] MEDS: OLANZapine 2.5 MG TAB PO SCH (08:34)
--- NOTE | 2022-05-17 12:37 | P.PN ---
Progress Note - Text Progress Note Date: 05/17/22 Interval History: Patient was seen wandering the hallways however was agreeable to speak with senior medical writer in her room. Currently, the patient is not endorsing any suicidal or homicidal ideation, intention, and/or plan. She is not reporting any auditory or visual hallucinations. She denies any paranoia or other delusions. She does report elevated anxiety. She does however state that she has an increased appetite. She reports that she is able to sleep last night. She has been adherent with her medications and is not endorsing any significant side effects. She states that she would like to shower today. The patient continues to pace in the same general area however was able to move beyond her normal in front of the office. Mental Status Exam: General Appearance: Patient appears to be stated age is alert, directable and cooperative. Behavior: Patient displays psychomotor slowing. Eye contact is slowly improving. Speech: Patient's speech is nonspontaneous, monotone, however quicker to respond. Mood/Affect: Mood is "okay." Affect is flat. Suicidality/Homicidality: Patient denies any suicidal or homicidal ideation today. Perceptions: Patient reports no auditory or visual hallucinations. Though content/process: Poverty of thought is evident. Memory and concentration: Alert and oriented to person, place, and time. Concentration appears to be poor though. Judgment and insight: Poor Vital Signs Temp 97.9 F 05/14/22 06:20 Pulse 60 05/14/22 06:20 Resp 16 05/14/22 06:20 BP 98/54 05/14/22 06:20 Pulse Ox 99 05/14/22 06:20 FiO2 Assessment Major depressive disorder, recurrent, severe, with catatonia Plan: -Patient continues to meet criteria for inpatient psychiatric admission for symptom stabilization and safety. Patient has signed adult voluntary form and medication consent and was placed in patient's chart. Patient has been adherent with her medications. We will continue the involuntary process. -Medications: Continue Remeron 30 mg by mouth at bedtime for depression/appetite stimulation Continue Ativan 2 mg by mouth 3 times a day for catatonia Increase Zyprexa to 2.5 mg in the morning and 5 mg at bedtime for treatment resistant depression -When necessary Ativan and Haldol for agitation/aggression. -SW on board for discharge planning. Encouraged the patient to participate in milieu.
[2022-05-17] MEDS: OLANZapine 5 MG TAB PO SCH (21:33)
[2022-05-17] MEDS: MIRTAZAPINE 15 MG TAB PO SCH (21:33)
[2022-05-18] MEDS: LORazepam 1 MG TAB PO SCH ×3 (10:38→20:52)
[2022-05-18] MEDS: OLANZapine 2.5 MG TAB PO SCH (10:39)
[2022-05-18] MEDS: NITROFURANTOIN MONOHYD/M-CRYST 100 MG CAP PO SCH ×2 (10:39→20:52)
--- NOTE | 2022-05-18 11:50 | P.PN ---
Progress Note - Text Progress Note Date: 05/18/22 Interval History: Patient was seen lying in bed however was agreeable to speak with technical writer in her room. The patient reports that she is feeling overall better. She continues to have intermittent episodes of mutism and psychomotor retardation. However, the patient is becoming somewhat more spontaneous. She continues to be on a significant dose of Ativan. In regards her depressive symptoms, the patient displays mild improvement in regards to her target symptoms of anhedonia, hygiene and grooming, and appetite. When inquiring about suicidal ideation, the patient reports "I don't know." Pressing the patient for further questioning was met with a delayed response and some mutism. She continued to report "I don't know." She is otherwise not reporting any homicidal ideation. She reports no auditory or visual hallucinations. Mental Status Exam: General Appearance: Patient appears to be stated age is alert, directable and cooperative. Behavior: Patient displays psychomotor slowing however mildly improving. Eye contact is slowly improving. Speech: Patient's speech is more spontaneous but continues to be mostly nonspontaneous, monotone, and quiet. Mood/Affect: Mood is "better." Affect is flat. Suicidality/Homicidality: Patient reports "I don't know"in regards to suicidal ideation. No homicidal ideation. Perceptions: Patient reports no auditory or visual hallucinations. Though content/process: Poverty of thought is evident. Memory and concentration: Alert and oriented to person, place, and time. Concentration mildly improving Judgment and insight: Poor Vital Signs Temp 97.4 F L 05/18/22 10:42 Pulse 104 H 05/18/22 10:42 Resp 16 05/18/22 10:42 BP 101/65 05/18/22 10:42 Pulse Ox 99 05/18/22 10:42 FiO2 Assessment Major depressive disorder, recurrent, severe, with catatonia Plan: -Patient continues to meet criteria for inpatient psychiatric admission for symptom stabilization and safety. Patient has signed adult voluntary form and medication consent and was placed in patient's chart. Patient has been adherent with her medications. We will continue the voluntary process. -Medications: Continue Remeron 30 mg by mouth at bedtime for depression/appetite stimulation Decrease Ativan to 1.5 mg by mouth 3 times a day for catatonia we will begin to taper this medication. Content Zyprexa to 2.5 mg in the morning and 5 mg at bedtime for treatment resistant depression -When necessary Ativan and Haldol for agitation/aggression. -SW on board for discharge planning. Encouraged the patient to participate in milieu.
[2022-05-18] MEDS: OLANZapine 5 MG TAB PO SCH (20:52)
[2022-05-18] MEDS: MIRTAZAPINE 15 MG TAB PO SCH (20:52)
[2022-05-19] MEDS: LORazepam 1 MG TAB PO SCH ×4 (09:26→20:56)
[2022-05-19] MEDS: OLANZapine 2.5 MG TAB PO SCH (09:27)
[2022-05-19 10:59] VITALS: BMI 23.3
--- NOTE | 2022-05-19 11:28 | P.PN ---
Progress Note - Text Progress Note Date: 05/19/22 Interval History: Patient was seen lying in bed however was agreeable to speak with selling underwriter today. Patient was slow to respond at times however was attending to cooperate. She claims that she is doing a bit better today. She did appear to be mildly lethargic. She has been taking her medications and denying any complaints. She did note that she was in the hospital and also in [place]. She knew the correct month and year only. She knows her full name. She states that she is only been going to some groups. She continues to have somewhat poor judgment. Claims that her depression and anxiety of mildly improving. States that she slept okay last night. She continues to have intermittent episodes of mutism and psychomotor retardation. the patient displays mild improvement in regards to her target symptoms of anhedonia, hygiene and grooming, and appetite. She is denying any suicidal or homicidal ideations intent or plan. Denying any auditory or visual hallucinations. She has been compliant with her medications. Mental Status Exam: General Appearance: Patient appears to be stated age is alert, directable and tends to be cooperative. Laying in bed. Behavior: Patient displays psychomotor slowing however mildly improving. Eye contact is slowly improving. Thing in bed. Speech: Patient's speech is more spontaneous but continues to be mostly nonspontaneous, monotone, and quiet, improving mildly Mood/Affect: Mood is "better." Affect is flat Suicidality/Homicidality: Patient denies any suicidal ideation. No homicidal ideation. Perceptions: Patient reports no auditory or visual hallucinations. Though content/process: Poverty of content. Logical. No paranoia or delusions. Memory and concentration: Alert and oriented to person, place, and time. Concentration mildly improving Judgment and insight: Poor, improving mildly Assessment: Major depressive disorder, recurrent, severe, with catatonia Plan: -Patient continues to meet criteria for inpatient psychiatric admission for symptom stabilization and safety. Patient has signed adult voluntary form and medication consent and was placed in patient's chart. Patient has been adherent with her medications. We will continue the voluntary process. -Medications: Continue Remeron 30 mg by mouth at bedtime for depression/appetite stimulation, decrease Ativan to 1 mg by mouth 3 times a day for catatonia we will begin to taper this medication. Zyprexa 2.5 mg in the morning and 5 mg at bedtime for treatment resistant depression -When necessary Ativan and Haldol for agitation/aggression. -SW on board for discharge planning. Encouraged the patient to participate in milieu.
[2022-05-19] MEDS: OLANZapine 5 MG TAB PO SCH (20:56)
[2022-05-19] MEDS: MIRTAZAPINE 15 MG TAB PO SCH (20:57)
[2022-05-20] MEDS: OLANZapine 2.5 MG TAB PO SCH (10:17)
[2022-05-20] MEDS: LORazepam 1 MG TAB PO SCH ×2 (10:17→16:43)
--- NOTE | 2022-05-20 17:55 | P.PN ---
Progress Note - Text Progress Note Date: 05/20/22 Interval History: Patient was seen standing in the hallway and was directable and agreeable to speak with junior copywriter. She was found staring at the floor deep in thought, but answers questions appropriately. She reports her mood is fair, reports she is worries about her job which she lost last week due to not calling in. She does not want to move from near her room, states she needs to stay in that spot near her room, in case she doesn't feel well. Vitals reviewed and her BP today is 87/53 and HR 59. At this time patient denies any suicidal or homicidal ideation, intent or plan. Patient denies any auditory, visual hallucinations and denies any paranoia or delusions. Patient denies any side effects from the medications and has been compliant with meds. Mental Status Exam: General Appearance: Patient appears to be stated age, slender female standing in the hallway in her hospital gown. Behavior: Patient is standing in the hallway near her room, staring at the floor, poor eye contact, withdrawn. Speech: Patient's speech is fluent and non-pressured, soft tone. Mood/Affect: Mood is improving mildly, affect is congruent and constricted. Suicidality/Homicidality: Patient denies having any suicidal or homicidal ideation intent or plan. Perceptions: Patient denies any visual hallucinations and denies any auditory hallucinations. Though content/process: There is no evidence of any delusional thought content and thought process is linear. Memory and concentration: AOX3, grossly intact for the purposes of this session Judgment and insight: Improving mildly Assessment: Major depressive disorder, recurrent severe with catatonic features Plan: -Patient continues to meet criteria for inpatient psychiatric admission for symptom stabilization and safety. -Medications: Decrease Ativan to 0.5 mg TID for catatonia due to low BP. Start Effexor XR 75 mg daily in the morning for depression/anxiety. Continue Remeron 30 mg QHS for depression/sleep/appetite. Continue Zyprexa 2.5 mg daily and 5 mg QHS for treatment resistant depression. -When necessary Ativan and Haldol for agitation/aggression. -SW on board for discharge planning. Encouraged the patient to participate in milieu.
[2022-05-20] MEDS: OLANZapine 5 MG TAB PO SCH (21:48)
[2022-05-20] MEDS: MIRTAZAPINE 15 MG TAB PO SCH (21:48)
[2022-05-20] MEDS: LORazepam 0.5 MG TAB PO SCH (21:50)
[2022-05-21] MEDS: VENLAFAXINE HCL ER 75 MG CAP PO SCH (08:45)
[2022-05-21] MEDS: OLANZapine 2.5 MG TAB PO SCH (08:45)
[2022-05-21] MEDS: LORazepam 0.5 MG TAB PO SCH ×2 (08:46→21:22)
--- NOTE | 2022-05-21 19:09 | P.PN ---
Progress Note - Text Progress Note Date: 05/21/22 Interval History: Patient was seen pacing the hallway and was directable and agreeable to speak with automotive service writer. She appears more engaged in assessment today as compared to yesterday after starting Effexor XR and decreasing her Ativan. She appears withdrawn, keeps to herself, pacing the unit, however no motor symptoms of catatonia observed on assessment. She answers questions appropriately without delay. She reports her mood is better today, reports her energy is improved, kori t to a couple groups today. At this time patient denies any suicidal or homicidal ideation, intent or plan. Patient denies any auditory, visual hallucinations and denies any paranoia or delusions. Patient denies any side effects from the medications and has been compliant with meds. Mental Status Exam: General Appearance: Patient appears to be stated age, slender female in her hospital gown. Behavior: Patient is pacing in the hallway near her room, staring at the floor, less withdrawn and improved eye contact today. Speech: Patient's speech is fluent and non-pressured, soft tone. Mood/Affect: Mood is improving mildly, affect is congruent and constricted. Suicidality/Homicidality: Patient denies having any suicidal or homicidal ideation intent or plan. Perceptions: Patient denies any visual hallucinations and denies any auditory hallucinations. Though content/process: There is no evidence of any delusional thought content and thought process is linear. Memory and concentration: AOX3, grossly intact for the purposes of this session Judgment and insight: Improving mildly Assessment: Major depressive disorder, recurrent, severe Catatonia - resolving Plan: -Patient continues to meet criteria for inpatient psychiatric admission for symptom stabilization and safety. -Medications: Decrease Ativan to 0.5 mg BID for catatonia with plan to further taper and discontinue as tolerated. Continue Effexor XR 75 mg daily in the morning for depression/anxiety, with plan to increase to 150 mg daily on Monday. Continue Remeron 30 mg QHS for depression/sleep/appetite. Continue Zyprexa 2.5 mg daily and 5 mg QHS for treatment resistant depression. -When necessary Ativan and Haldol for agitation/aggression. -SW on board for discharge planning. Encouraged the patient to participate in milieu.
[2022-05-21] MEDS: MIRTAZAPINE 15 MG TAB PO SCH (21:22)
[2022-05-21] MEDS: OLANZapine 5 MG TAB PO SCH (21:22)
[2022-05-22] MEDS: LORazepam 0.5 MG TAB PO SCH (09:07)
[2022-05-22] MEDS: OLANZapine 2.5 MG TAB PO SCH (09:07)
[2022-05-22] MEDS: VENLAFAXINE HCL ER 75 MG CAP PO SCH (09:07)
[2022-05-22 15:44] VITALS: BP 94/56; PULSE 68; RESP 16; TEMP 97.6
[2022-05-22] MEDS: MIRTAZAPINE 15 MG TAB PO SCH (21:04)
[2022-05-22] MEDS: OLANZapine 5 MG TAB PO SCH (21:04)
--- NOTE | 2022-05-22 22:12 | P.PN ---
Progress Note - Text Progress Note Date: 05/22/22 Interval History: Patient was seen pacing the hallway again today however today she is walking around the entire unit and not isolating to near her room. She was directable and agreeable to speak with marine underwriter. She appears more engaged in assessment again today, eye contact is improved and affect is brighter. No motor symptoms of catatonia observed. She answers questions appropriately without delay. She reports her mood is better today, reports her energy is improved, is attending groups. She denies feeling anxious however objectively appears somewhat anxious. At this time patient denies any suicidal or homicidal ideation, intent or plan. Patient denies any auditory, visual hallucinations and denies any paranoia or delusions. Patient denies any side effects from the medications and has been compliant with meds. She prefers to keep the Effexor XR at 75 mg for now and does not want it increased for her anxiety. Mental Status Exam: General Appearance: Patient appears to be stated age, slender female in her hospital gown. Behavior: Patient is pacing in the hallway around the unit, improved eye contact. Speech: Patient's speech is fluent and non-pressured, soft tone. Mood/Affect: Mood is improving mildly, affect is improved in range and brighter, but also appears anxious. Suicidality/Homicidality: Patient denies having any suicidal or homicidal ideation intent or plan. Perceptions: Patient denies any visual hallucinations and denies any auditory hallucinations. Though content/process: There is no evidence of any delusional thought content and thought process is linear. Memory and concentration: AOX3, grossly intact for the purposes of this session Judgment and insight: Improving mildly Assessment: Major depressive disorder, recurrent, severe Unspecified anxiety disorder, rule out JULISSA Catatonia - resolved Plan: -Patient continues to meet criteria for inpatient psychiatric admission for symptom stabilization and safety. -Medications: Discontinue Ativan Continue Effexor XR 75 mg daily in the morning for depression/anxiety per patient preference. Continue Remeron 30 mg QHS for depression/sleep/appetite. Continue Zyprexa 2.5 mg daily and 5 mg QHS for treatment resistant depression. -When necessary Ativan and Haldol for agitation/aggression. -SW on board for discharge planning. Encouraged the patient to participate in milieu.
[2022-05-23] MEDS: OLANZapine 2.5 MG TAB PO SCH (09:02)
[2022-05-23] MEDS: VENLAFAXINE HCL ER 75 MG CAP PO SCH (09:02)
--- NOTE | 2022-05-23 17:28 | P.DS ---
Providers Date of admission: 05/13/22 04:36 Expected date of discharge: 05/23/22 Attending physician: Ortega Espitia MD Consults: 05/13/22 04:40 Consult Physician Routine Consulting Provider: Alondra Valenzuela Consult Reason/Comments: For H & P for Medical Follow Up Do you want consulting provider notified?: Yes Primary care physician: Stated None Hospital Course: Admission HPI: Admission note was completed by Dr. Espitia "[IDENTIFYING DATA: Patient is a , recently unemployed, 56-year-old female who presented to our hospital under petition and certification for bizarre behavior and worsening depressive symptoms. HPI: Patient presented to the hospital on 05/13/2022, brought in by EMS under petition and certification for worsening depression and bizarre behavior. The patient was noted to be outside without a coat in the cold wandering back and forth in front of her car. When interviewed by a passing police pilot, the patient was unable to verbalize why she was there and what she was doing. The patient also is calmly brought by EMS to the emergency department. The patient did endorse significant symptoms of depression to the EPS nurse and was subsequently admitted to our psychiatric unit. Upon evaluation on the psychiatric unit, the patient reports that she has been "dealing with depression for a while now." She reports that she has been dealing with depression since her 30s, especially worse after her committed suicide in 2002. She endorses significant symptoms of depression including anhedonia, decreased hygiene and grooming, low energy, poor sleep, and generalized feelings of sadness and tearfulness. She however did vehemently denies any suicidal ideation or homicidal ideation. She reports no previous attempts at suicide..In regards her hygiene and grooming, the patient reports that she has not showered in a few days. The patient states that she has numerous stressors including her homelessness as she has been living in her car and most recently was staying with her sister as well as her recent unemployment. She reports that she was fired from [employer] this week. In regards other mood symptoms, the patient is not endorsing any significant history of bipolar disorder. She reports no periods of excessive energy, grandiosity, or mood lability. She denies any significant history of auditory or visual hallucinations. She reports no paranoia or other delusions. The patient signed herself voluntarily to the psychiatric unit. PAST PSYCHIATRIC HISTORY: Patient states that she has been intrusive diagnosed depression and anxiety. The patient is able to recall being previously prescribed Haldol and BuSpar. She reports one prior psychiatric hospitalization, "somewhere in [place]" approximately one to 2 years ago. Patient denies any psychiatric outpatient follow-up. Patient denies any history of suicide attempts in the past. PMH: Past Medical History: Thyroid Disorder History of Any Multi-Drug Resistant Organisms: None Reported Past Surgical History: Section, Hysterectomy Past Psychological History: Anxiety, Depression Smoking Status: Former smoker Past Alcohol Use History: None Reported Past Drug Use History: None Reported ALLERGIES: Sulfa CHEMICAL DEPENDENCY HISTORY: Patient denies any tobacco, alcohol, marijuana, or illicit drug use. FAMILY PSYCHIATRIC/SUBSTANCE USE HISTORY: No reported family psychiatric history. SOCIAL HISTORY: Patient was born in [place], [place] and raised in [place], [place]. She has 2 adult children ages 30 and 32 who currently livesconstant. She has been as of 2002 after her of 8 years committed suicide. She graduated high school. She reports the [employer] guerline. She denies any legal problems. She was recently employed however terminated from her job at [employer] this past week. She is currently homeless. She does report some support from her sister. MENTAL STATUS EXAM: General Appearance: Patient appears to be stated age is alert, directable, and attempts to cooperate. Patient appears to have very disheveled hygiene and grooming. Behavior: Patient is seated without any agitated behavior.. Psychomotor slowing is evident. Eye contact is intermittent. Speech: Patient's speech is unspontaneous, monotone, low in volume. Mood/Affect: Patient reports their mood is depressed, affect is congruent and withdrawn. Tearful. Suicidality/Homicidality: Patient denies having any homicidal ideation intent or plan. Denies any suicidal ideations intent or plan Perceptions: Patient denies any visual hallucinations and denies any auditory hallucinations Though content/process: The patient appears to display some thought blocking. No delusional thought content is endorsed. Memory and concentration: AOX3, grossly intact for the purposes of this session. Can spell "WORLD" backwards Judgment and insight: Fair STRENGTHS/WEAKNESSES: Strength is that the patient is resilient. Weakness is that the patient has severe mental illness and a strong predisposition to mental illness due to the suicide of her . INTELLECT: average IMPRESSIONS: Major depressive disorder, recurrent, severe PLAN: -Patient is admitted under voluntary status to MHU for stabilization of psychiatric symptoms and safety. Patient signed adult voluntary form and medication consent and is placed in patient's chart. -Medications : Will start patient on Prozac 20 mg by mouth daily for depression/anxiety Remeron 7.5 mg by mouth at bedtime for insomnia/depression/appetite stimulation -Ativan and Haldol PRN for agitation/aggression -Patient was informed of the risks, benefits and side effects of the medication and patient verbally consented to taking the medications. Patient signed med consent form and was placed in chart. -Internal Medicine consult to perform medical evaluation and physical. -SW on board for discharge planning. Encourage patient to participate in groups to work on coping skills. Addendum entered and electronically signed by Ortega Espitia MD 05/13/22 14:53: Diagnosis of Major Depressive Disorder, recurrent, severe, with catatonia Addendum entered and electronically signed by Ortega Espitia MD 05/13/22 14:52: 2 mg Ativan again administered at 2:42 pm with significant improvement. Patient was able to ambulate towards her bed and move around. She is more spontaneous in speech. She bizarrely requests to speak with "the 2 nurses I was speaking with before." The nurses who did the initial administration of the ativan challenge approached the patient however she does not believe these were the 2 nurses. We will order ativan TID. Addendum entered and electronically signed by Ortega Espitia MD 05/13/22 14:35: Initial ativan challange of 2 mg IM at 2:13 pm with minimal improvement. Another 2 mg IM was ordered. Addendum entered and electronically signed by Ortega Espitia MD 05/13/22 14:03 : Patient appeared to be maintaining the same posture in the middle of her room (12) for an extended period of time. Not responding and refusing direction. She did not eat meals or take her medications. Concern for catatonia. We will administer Ativan 2 mg IM and schedule ativan 2 mg TID. ]" Hospital course: Upon admission to the unit patient was observed to be catatonic and was started on Ativan. Patient was admitted on voluntary basis. Patient got along well with other patients on the unit and followed unit protocol. Patient was compliant with the medications and denied any side effects throughout hospital course. Patient was started on Prozac 20 mg daily and Remeron 7.5 mg for depression, as well as Ativan for possible catatonia. Prozac was discontinued and Remeron was titrated to 30 mg QHS for depression. 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 Her catatonic symptoms appeared to resolve so her Ativan was tapered and discontinued, and she continued to appear depressed and so Effexor XR was started at 75 mg daily in the morning for depression with benefit. Patient spoke of her stressors and engaged in therapy both group and individual. Patient was also seen by medical team for history and physical exam. Throughout the course of the hospitalization patient gradually improved with regards to mood, anxiety, sleep and returned back to their baseline level of functioning. On the day of discharge patient denied any suicidal or homicidal ideation, intent or plan denied any auditory or visual hallucinations. Patient endorsed wanting to live. The patient denied any access to guns or weapons. Patient denied any paranoia and did not endorse any delusions. Patient does not have a significant history of substance abuse. Patient was also counseled on the medications and need for regular compliance and was encouraged to follow-up with their outpatient appointment for mental health and also for primary care. Prior to discharge a family meeting will be arranged by manager social work to answer any questions and ensure safety upon discharge. Mental status exam: General Appearance: Patient appears to be stated age, slender female, dressed in casual attire Behavior: Patient is calm and cooperative. Speech: Patient's speech is fluent and non-pressured. Mood/Affect: Mood is i"good", affect is euthymic. Suicidality/Homicidality: Patient denies having any suicidal or homicidal ideation intent or plan. Perceptions: Patient denies any visual hallucinations and denies any auditory hallucinations. Though content/process: There is no evidence of any delusional thought content and thought process is linear. Memory and concentration: AOX3, grossly intact for the purposes of this session Judgment and insight: Improved with guarded prognosis Impression: Major depressive disorder, recurrent, severe with catatonic features Unspecified anxiety disorder, rule out JULISSA Catatonia - resolved Plan: -Continue with discharge today as patient has improved and stabilized psychiatrically and is not currently an imminent threat to herself and/or others. -Continue medications: Continue Effexor XR 75 mg daily in the morning for depression/anxiety per patient preference. Continue Remeron 30 mg QHS for depression/sleep/appetite. Continue Zyprexa 2.5 mg daily and 5 mg QHS for treatment resistant depression. -Patient was counseled on the need for medication compliance and appropriate follow-up at mental health and also primary care for medical issues. Patient verbalized understanding and agreed. -Social work to arrange for and conduct family meeting to ensure safety upon discharge and answer any questions/concerns. Social work also to arrange for patients follow up appointments for psychiatric care along with follow up with primary care provider. -Patient counseled on abstaining from recreational drugs and marijuana and alcohol. -Patient was instructed to return to the hospital or seek immediate medical care if their psychiatric or medical symptoms do worsen or reoccur. Laboratory Results WBC 8.3 k/uL (3.8-10.6) 05/13/22 01:04 RBC 4.16 m/uL (3.80-5.40) 05/13/22 01:04 Hgb 13.2 gm/dL (11.4-16.0) 05/13/22 01:04 Hct 36.3 % (34.0-46.0) 05/13/22 01:04 MCV 87.1 fL (80.0-100.0) 05/13/22 01:04 MCH 31.6 pg (25.0-35.0) 05/13/22 01:04 MCHC 36.3 g/dL (31.0-37.0) 05/13/22 01:04 RDW 13.6 % (11.5-15.5) 05/13/22 01:04 Plt Count 217 k/uL (150-450) 05/13/22 01:04 MPV 9.8 05/13/22 01:04 Neutrophils % 56 % 05/13/22 01:04 Lymphocytes % 32 % 05/13/22 01:04 Monocytes % 7 % 05/13/22 01:04 Eosinophils % 2 % 05/13/22 01:04 Basophils % 1 % 05/13/22 01:04 Neutrophils # 4.6 k/uL (1.3-7.7) 05/13/22 01:04 Lymphocytes # 2.7 k/uL (1.0-4.8) 05/13/22 01:04 Monocytes # 0.6 k/uL (0-1.0) 05/13/22 01:04 Eosinophils # 0.1 k/uL (0-0.7) 05/13/22 01:04 Basophils # 0.1 k/uL (0-0.2) 05/13/22 01:04 Sodium 136 mmol/L (137-145) L 05/13/22 01:04 Potassium 3.3 mmol/L (3.5-5.1) L 05/13/22 01:04 Chloride 105 mmol/L (98-107) 05/13/22 01:04 Carbon Dioxide 23 mmol/L (22-30) 05/13/22 01:04 Anion Gap 8 mmol/L 05/13/22 01:04 BUN 17 mg/dL (7-17) 05/13/22 01:04 Creatinine 0.54 mg/dL (0.52-1.04) 05/13/22 01:04 Est GFR (CKD-EPI)AfAm >90 (>60 ml/min/1.73 sqM) 05/13/22 01:04 Est GFR (CKD-EPI)NonAf >90 (>60 ml/min/1.73 sqM) 05/13/22 01:04 Glucose 94 mg/dL (74-99) 05/13/22 01:[address] Glu mg/dL 106 05/13/22 01:04 Hemoglobin A1c 5.3 % (0.0-6.0) 05/13/22 01:04 Calcium 9.0 mg/dL (8.4-10.2) 05/13/22 01:04 Total Bilirubin 0.3 mg/dL (0.2-1.3) 05/13/22 01:04 Total Bilirubin 0.6 mg/dL (0.2-1.3) 05/13/22 01:04 Conjugated Bilirubin 0.0 mg/dL (0.0-0.3) 05/13/22 01:04 Unconjugated Bilirubin 0.1 mg/dL (0.0-1.1) 05/13/22 01:04 Delta Bilirubin 0.2 mg/dL (0.0-0.2) 05/13/22 01:04 AST 37 U/L (14-36) H 05/13/22 01:04 AST 38 U/L (14-36) H 05/13/22 01:04 ALT 32 U/L (4-34) 05/13/22 01:04 ALT 32 U/L (4-34) 05/13/22 01:04 Alkaline Phosphatase 58 U/L (38-126) 05/13/22 01:04 Alkaline Phosphatase 59 U/L (38-126) 05/13/22 01:04 Ammonia <9 umol/L (<30) 05/13/22 01:04 Total Protein 6.2 g/dL (6.3-8.2) L 05/13/22 01:04 Total Protein 6.2 g/dL (6.3-8.2) L 05/13/22 01:04 Albumin 4.0 g/dL (3.5-5.0) 05/13/22 01:04 Albumin 4.1 g/dL (3.5-5.0) 05/13/22 01:04 Triglycerides 58.60 mg/dL (0.00-149.00) 05/13/22 01:04 Cholesterol 168.00 mg/dL (0.00-200.00) 05/13/22 01:04 LDL Cholesterol, Calc 92.0 mg/dL (0.0-131.0) 05/13/22 01:04 VLDL Cholesterol, Calc 11.72 mg/dL (5.00-40.00) 05/13/22 01:04 HDL Cholesterol 64.30 mg/dL (40.00-60.00) H 05/13/22 01:04 Cholesterol/HDL Ratio 2.61 Ratio 05/13/22 01:04 TSH 2.810 mIU/L (0.465-4.680) 05/13/22 01:04 Urine Color Yellow 05/13/22 01:11 Urine Appearance Clear (Clear) 05/13/22 01:11 Urine pH 5.5 (5.0-8.0) 05/13/22 01:11 Ur Specific Allen 1.011 (1.001-1.035) 05/13/22 01:11 Urine Protein Negative (Negative) 05/13/22 01:11 Urine Glucose (UA) Trace (Negative) H 05/13/22 01:11 Urine Ketones Negative (Negative) 05/13/22 01:11 Urine Blood Negative (Negative) 05/13/22 01:11 Urine Nitrite Negative (Negative) 05/13/22 01:11 Urine Bilirubin Negative (Negative) 05/13/22 01:11 Urine Urobilinogen <2.0 mg/dL (<2.0) 05/13/22 01:11 Ur Leukocyte Esterase Large (Negative) H 05/13/22 01:11 Urine RBC 2 /hpf (0-5) 05/13/22 01:11 Urine WBC 19 /hpf (0-5) H 05/13/22 01:11 Ur Squamous Epith Cells 1 /hpf (0-4) 05/13/22 01:11 Ur Transition Epith Cell <1 /hpf (0-1) 05/13/22 01:11 Urine Bacteria Rare /hpf (None) H 05/13/22 01:11 Hyaline Casts 1 /lpf (0-2) 05/13/22 01:11 Urine Mucus Moderate /hpf (None) H 05/13/22 01:11 Salicylates <1.0 mg/dL 05/13/22 01:04 Urine Opiates Screen Not Detected (NotDetected) 05/13/22 01:11 Ur Oxycodone Screen Not Detected (NotDetected) 05/13/22 01:11 Urine Methadone Screen Not Detected (NotDetected) 05/13/22 01:11 Ur Propoxyphene Screen Not Detected (NotDetected) 05/13/22 01:11 Acetaminophen <10.0 ug/mL 05/13/22 01:04 Ur Barbiturates Screen Not Detected (NotDetected) 05/13/22 01:11 U Tricyclic Antidepress Not Detected (NotDetected) 05/13/22 01:11 Ur Phencyclidine Scrn Not Detected (NotDetected) 05/13/22 01:11 Ur Amphetamines Screen Not Detected (NotDetected) 05/13/22 01:11 U Methamphetamines Scrn Not Detected (NotDetected) 05/13/22 01:11 U Benzodiazepines Scrn Not Detected (NotDetected) 05/13/22 01:11 Urine Cocaine Screen Not Detected (NotDetected) 05/13/22 01:11 U Marijuana (THC) Screen Not Detected (NotDetected) 05/13/22 01:11 Serum Alcohol <10 mg/dL 05/13/22 01:04 Coronavirus (PCR) Not Detected (Not Detectd) 05/13/22 03:48 Vital Signs (72 hours) 05/21/22 05/21/22 05/22/22 06:35 08:46 08:00 Temperature 97.6 F Pulse Rate [ 53 L 81 68 Left Sitting] Respiratory 16 Rate Blood Pressure 87/54 102/56 94/56 [Left Arm] O2 Sat by Pulse 98 98 Oximetry Patient Condition at Discharge: Stable Plan - Discharge Summary Discharge Rx Participant: No New Discharge Prescriptions: New Venlafaxine HCl ER [Effexor XR] 75 mg PO DAILY 30 Days #30 cap Mirtazapine [Remeron] 30 mg PO HS 30 Days #60 tab OLANZapine [ZyPREXA] 2.5 mg PO DAILY 30 Days #30 tab OLANZapine [ZyPREXA] 5 mg PO HS 30 Days #30 tab Discontinued Cephalexin [Keflex] 500 mg PO BID 7 Days #14 cap Discharge Medication List Mirtazapine [Remeron] 30 mg PO HS 30 Days #60 tab 05/23/22 [Rx] OLANZapine [ZyPREXA] 2.5 mg PO DAILY 30 Days #30 tab 05/23/22 [Rx] OLANZapine [ZyPREXA] 5 mg PO HS 30 Days #30 tab 05/23/22 [Rx] Venlafaxine HCl ER [Effexor XR] 75 mg PO DAILY 30 Days #30 cap 05/23/22 [Rx] Follow up Appointment(s)/Referral(s): [facility] [Outside] - 05/25/22 10:00 am (with Belinda) [facility] - [facility] Patient Instructions/Handouts: Psychotic Disorder (DC) Activity/Diet/Wound Care/Special Instructions: Avoid the use of street drugs and alcohol. Take all prescriptions as prescribed. When you are in need of refills on your medications, please contact your medical provider and/or outpatient psychiatrist to have this done. Please go to scheduled outpatient appointment for aftercare treatment. If symptoms return or become worse, call the crisis line at and/or go to the nearest emergency room for evaluation Discharge Disposition: HOME SELF-CARE
== END 2022-05-23 13:40 | disposition home or self-care (01) | DRG 885 ==
LOC: EC 23:39 → 3MHU 05-13 04:36
PROVIDERS: ADMIT Psychiatry & Neurology Psychiatry; ATTEND Psychiatry & Neurology Psychiatry
DX: F33.2 Major depressive disorder, recurrent severe without psychotic features (principal); R47.01 Aphasia; F06.1 Catatonic disorder due to known physiological condition; Z56.0 Unemployment, unspecified; Z59.00 Homelessness unspecified; Z79.899 Other long term (current) drug therapy; Z87.891 Personal history of nicotine dependence; Z20.822 Contact with and (suspected) exposure to COVID-19
CPT/HCPCS: 36415; 80053; 80061; 80076; 80143; 80179; 80306; 80320; 81001; 82140; 83036; 84443; 85025; 87077; 87086; 87186; 87635; 93005; 99285

== ENCOUNTER 2023-01-02 19:35 | Inpatient (IN) | payer BC ==
--- NOTE | 2023-01-02 20:56 | ED ---
Psych HPI - General Chief Complaint: Psychiatric Symptoms Stated Complaint: Mental Health Time Seen by Provider: 01/02/23 20:47 Source: patient, RN notes reviewed, old records reviewed Mode of arrival: ambulatory Limitations: altered mental status - History of Present Illness Initial Comments: This is a 57-year-old female brought in by petition petition by family member for psychiatric evaluation. Patient does have well-known history of psychiatric illness. Patient has persistent psychiatric no psychosis here in the ER has been not acting appropriately home and been found wandering and doing inappropriate things. Patient herself is not participating history of present illness MD Complaint: altered mental status -: unknown Associated Psychiatric Symptoms: racing thoughts, auditory hallucinations, visual hallucinations, delusions Quality: constant, getting worse Improves With: none Worsens With: none Context: not taking psychiatric medications, significant life stressor Associated Symptoms: denies other symptoms - Related Data Home Medications Medication Instructions Recorded Confirmed No Known Home Medications 01/02/23 01/02/23 Allergies Allergy/AdvReac Type Severity Reaction Status Date / Time Sulfa (Sulfonamide Allergy Unknown Verified 01/02/23 21:45 Antibiotics) Review of Systems ROS Statement: Those systems with pertinent positive or pertinent negative responses have been documented in the HPI. ROS Other: All systems not noted in ROS Statement are negative. Past Medical History Past Medical History: Thyroid Disorder Additional Past Medical History / Comment(s): ovarian cyst History of Any Multi-Drug Resistant Organisms: None Reported Past Surgical History: Section, Hysterectomy Past Anesthesia/Blood Transfusion Reactions: No Reported Reaction Past Psychological History: Anxiety, Depression Smoking Status: Never smoker Past Alcohol Use History: None Reported Past Drug Use History: None Reported General Exam Limitations: no limitations General appearance: alert, in no apparent distress Head exam: Present: atraumatic, normocephalic, normal inspection Eye exam: Present: normal appearance, PERRL, EOMI. Absent: scleral icterus, conjunctival injection, periorbital swelling ENT exam: Present: normal exam, mucous membranes moist Neck exam: Present: normal inspection. Absent: tenderness, meningismus, lymphadenopathy Respiratory exam: Present: normal lung sounds bilaterally. Absent: respiratory distress, wheezes, rales, rhonchi, stridor Cardiovascular Exam: Present: regular rate, normal rhythm, normal heart sounds. Absent: systolic murmur, diastolic murmur, rubs, gallop, clicks GI/Abdominal exam: Present: soft, normal bowel sounds. Absent: distended, tenderness, guarding, rebound, rigid Extremities exam: Present: normal inspection, full ROM, normal capillary refill. Absent: tenderness, pedal edema, joint swelling, calf tenderness Back exam: Present: normal inspection Neurological exam: Present: alert, oriented X3, CN II-XII intact Psychiatric exam: Present: normal affect, normal mood Skin exam: Present: warm, dry, intact, normal color. Absent: rash Course Vital Signs 01/02/23 19:36 Temperature 97.8 F Pulse Rate 105 H Respiratory 16 Rate Blood Pressure 136/84 O2 Sat by Pulse 99 Oximetry - Reevaluation(s) Reevaluation #1: 01/02/23 23:11 Medical record is reviewed Reevaluation #2: 01/02/23 23:11 Medical clear for psychiatric evaluation Medical Decision Making - Medical Decision Making 57 female with acute psychosis not taking medications. Patient will need inpatient psychiatric evaluation and treatment Disposition Clinical Impression: Acute psychosis Disposition: TRANSFER TO PSYCH HOSP/UNIT Condition: Fair Is patient prescribed a controlled substance at d/c from ED?: No Referrals: None,Stated [Primary Care Provider] - 1-2 days
[2023-01-03] MEDS ORDERED: LORazepam 2 MG/ML INJ IM PRN (02:24)
[2023-01-03] MEDS ORDERED: LORazepam 1 MG TAB PO PRN ×2 (02:24)
[2023-01-03] MEDS ORDERED: MAG HYDROX/AL HYDROX/SIMETH 30 ML CUP PO PRN (02:24)
[2023-01-03] MEDS ORDERED: HALOPERIDOL LACTATE 5 MG/ML 1 ML VIAL IM PRN (02:24)
[2023-01-03] MEDS ORDERED: ACETAMINOPHEN TAB 325 MG TAB PO PRN (02:24)
[2023-01-03] MEDS ORDERED: MAGNESIUM HYDROXIDE 2,400 MG/30 ML CUP PO PRN (02:24)
[2023-01-03] MEDS ORDERED: haloperidoL 5 MG TAB PO PRN (02:24)
[2023-01-03] MEDS: NICOTINE 14MG/24HR PATCH TRANSDERM SCH (10:51)
--- NOTE | 2023-01-03 13:31 | P.HP ---
Psychiatric H&P - . H&P Date: 01/03/23 History & Physical: Allergies Allergy/AdvReac Type Severity Reaction Status Date / Time Sulfa (Sulfonamide Allergy Unknown Verified 01/02/23 21:45 Antibiotics) Vital Signs Temp 97.7 F 01/03/23 04:57 Pulse 75 01/03/23 04:57 Resp 18 01/03/23 04:57 BP 126/61 01/03/23 04:57 Pulse Ox 96 01/03/23 04:57 FiO2 Intake & Output 01/02/23 01/03/23 01/03/23 18:59 06:59 18:59 Weight 90.7 kg Laboratory Last Values Coronavirus (PCR) Not Detected (Not Detectd) 01/03/23 00:08 01/03/23 13:15 IDENTIFYING DATA: Patient is a 57-year-old female who presented to the hospital on a petition and certificate by her sister for concerns about patient mental status HPI: Patient presented to the hospital brought in by family members and was petitioned by sister for confusion, not able to take care of herself, lying. Patient has a history of major depressive disorder and catatonia. Patient was last admitted to psychiatric unit in April 2022 and treated for severe depression with catatonia. Patient was also following up at [facility]. Patient was seen today in her room laying in bed. Patient was breathing and somnolent. C Unix Developer attempted to wake up patient several times and patient grunted refused to answer questions was uncooperative return to decide. She is not able to answer whether she was endorsing suicidal or homicidal ideations or auditory or visual hallucinations. Currently awaiting UDS and lab work. The rest of the information was taken from EMR and previous notes from providers. PAST PSYCHIATRIC HISTORY: Patient has a history of depression and anxiety and catatonia. previously prescribed Haldol and BuSpar, Effexor and Remeron and Zyprexa. Patient has had 1 prior psychiatric hospitalization on the mental health unit in April 2022 or depression and catatonia. Patient is supposed to be following up at [facility] [place]. PMH: Past Medical History: Thyroid Disorder History of Any Multi-Drug Resistant Organisms: None Reported Past Surgical History: Section, Hysterectomy Past Psychological History: Anxiety, Depression Smoking Status: Former smoker Past Alcohol Use History: None Reported Past Drug Use History: None Reported ALLERGIES: Sulfa CHEMICAL DEPENDENCY HISTORY: UDS is current currently pending. FAMILY PSYCHIATRIC/SUBSTANCE USE HISTORY: No reported family psychiatric history. SOCIAL HISTORY: Patient was born in [place], [place] and raised in [place], [place]. She has 2 adult children ages 30 and 32. She has been as of 2002 after her of 8 years committed suicide. She graduated high school. 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 She denies any legal problems. She does report some support from her sister. MENTAL STATUS EXAM: General Appearance: Patient appears to be laying in bed, uncooperative, somnolent, stated age. Appears to be sunburnt and read. Patient appears to be disheveled hygiene and grooming. Behavior: Patient is in bed, uncooperative eye contact is poor. Speech: Grunting Mood/Affect: Unable to assess Suicidality/Homicidality: Unable to assess Perceptions: Unable to assess Though content/process: Unable to assess Memory and concentration: Unable to assess Judgment and insight: Poor STRENGTHS/WEAKNESSES: Strength is that the patient is resilient and has family support. Weakness is that the patient has severe mental illness and hx of catatonia. INTELLECT: average IMPRESSIONS: Psychosis NOS r/o Catatonia hx of depression nicotine dependence PLAN: -Patient is admitted under [involuntary] status to MHU for stabilization of psychiatric symptoms and safety. Patient has [not] signed [adult voluntary form and] [medication consent] and is placed in patient's chart. [A second certification was completed and along with petition will be filed for court.] -Medications : Ativan 1 mg bid for catatonic sx. resume previous meds effexor 37.5 mg daily for mood/anxiety, remeron 30 mg qhs for insomnia/mood -Ativan [and Haldol] PRN for agitation/aggression -Internal Medicine consult to perform medical evaluation and physical. consider getting head CT if patient continues to demonstrate these sx. awaiitng blood work and UDS -NRT - [nicotine patch] -SW on board for discharge planning. Encourage patient to participate in groups to work on coping skills. [Will await deferral and court date.] []
[2023-01-03] MEDS: VENLAFAXINE HCL ER 37.5 MG CAP PO SCH (15:34)
[2023-01-03] MEDS: LORazepam 1 MG TAB PO SCH ×2 (16:04→21:24)
[2023-01-03] MEDS ORDERED: MIRTAZAPINE 15 MG TAB PO SCH (21:00)
[2023-01-04] MEDS ORDERED: CALAMINE/ZINC OXIDE LOTION 177 ML BTL TOPICAL PRN (05:49)
--- NOTE | 2023-01-04 06:06 | P.MDCNMH ---
History of Present Illness H&P Date: 01/04/23 Chief Complaint: Medical evaluation 57-year-old female no significant past medical history Patient petitioned by family for evaluation for bizarre behavior, wandering around long distances doing inappropriate behavior. Patient doesn't admit to any of that however she does complain of some itching and some burning the fact due to walking long distances in the sun involving mainly her upper and lower extremities. The patient currently denies any medical concerns , denies any fever, chills, cough, sore throat, chest pain , trouble breathing , nausea , vomiting, abd pain , changes in urinary or bowel habits. she denies any tobacco smoking and illicit drugs or alcohol review of systems Pertinent positives as noted in HPI. All other systems were reviewed and are negative on exam Constitutional: No acute distress Eyes: Anicteric sclerae, moist conjunctiva, Pupils equal round reactive to light Lungs: Clear to auscultation Clear to percussion Normal respiratory effort, no accessory muscle use Cardiovascular: Heart regular in rate and rhythm, No murmurs, gallops, or rubs No peripheral edema Abdominal: Soft Nontender, no guarding, rebound or rigidity Abdomen moving with respiration Normoactive bowel sounds Extremities: Erythema with sunburn effect over bilateral upper extremity in her lower extremity No clubbing Pedal pulses intact and symmetrical Radial pulses intact and symmetrical No calf tenderness Psychiatric: Alert and oriented to person, place and time Neuro Muscles Strength 5/5 in all 4 extremities Sensation to light touch grossly present throughout Past Medical History Past Medical History: Thyroid Disorder Additional Past Medical History / Comment(s): ovarian cyst History of Any Multi-Drug Resistant Organisms: None Reported Past Surgical History: Section, Hysterectomy Past Anesthesia/Blood Transfusion Reactions: No Reported Reaction Past Psychological History: Anxiety, Depression Smoking Status: Former smoker, Never smoker Past Alcohol Use History: None Reported Past Drug Use History: None Reported Medications and Allergies Home Medications Medication Instructions Recorded Confirmed Type No Known Home Medications 01/02/23 01/02/23 History Allergies Allergy/AdvReac Type Severity Reaction Status Date / Time Sulfa (Sulfonamide Allergy Unknown Verified 01/02/23 21:45 Antibiotics) Cranial Nerve Examination - Cranial Nerves Cranial Nerve II- Optic: Intact Cranial Nerve III- Oculomotor: Intact Cranial Nerve IV- Trochlear: Intact Cranial Nerve V- Trigeminal: Intact Cranial Nerve - Abducens: Intact Cranial Nerve VII- Facial: Intact Cranial Nerve VIII- Auditory: Intact Cranial Nerve IX- Glossopharyngeal: Intact Cranial Nerve X- Vagus: Intact Cranial Nerve XI- Accessory: Intact Cranial Nerve XII- Hypoglossal: Intact Assessment and Plan Assessment: Bizarre behavior Management per psych Sunburn effect on her skin Calamine lotion when necessary Pending blood work Covid test negative Stable from medical standpoint Thank you for this consultation
[2023-01-04] MEDS: LORazepam 1 MG TAB PO SCH ×2 (09:43→21:27)
[2023-01-04] MEDS: VENLAFAXINE HCL ER 37.5 MG CAP PO SCH (09:43)
[2023-01-04] MEDS: NICOTINE 14MG/24HR PATCH TRANSDERM SCH (09:43)
--- NOTE | 2023-01-04 13:02 | P.PN ---
Progress Note - Text Progress Note Date: 01/04/23 Interval History: Patient was seen today for psychiatric follow-up. Patient was sitting up at the side of her bed. She had poor eye contact today. She started taking her medications last night. She was more interactive today with grant writer. She answered most questions as best as she could. She stated that she was in a "confused state" and states that has been going on for the past several days. She claims that she stopped taking her medications about 2 months ago as she felt that she was doing well and did not need them anymore. She appears to have very mild and poor insight. She was alert and oriented 3 today, appeared to have improvement in concentration. States that her mood is "depressed" and did endorse some anxiety as well. She is agreeable to continue on with treatment at this time. At this time patient denies any suicidal or homical ideations, intent or plan. Patient denies any auditory, visual hallucinations and denies any paranoia or delusions. Patient denies any side effects from the medications and has been compliant with meds. Mental Status Exam: General Appearance: Patient appears to be stated age is alert, directable, and cooperative. Behavior: Patient is calmly seated without any agitated behavior. Speech: Patient's speech is fluent and nonpressured. [place] Mood/Affect: Mood is depressed and anxious, affect is congruent and constricted. Suicidality/Homicidality: Patient denies having any suicidal or homicidal ideation intent or plan. Perceptions: Patient denies any visual hallucinations and denies any auditory hallucinations Though content/process: There is no evidence of any delusional thought content and thought process is linear and goal-directed. [place]. Memory and concentration: AOX3, grossly intact for the purposes of this session Judgment and insight: Poor, Improving mildly Assessment Major depressive disorder recurrent severe catatonia nicotine dependence PLAN: -Patient is admitted under involuntary status to MHU for stabilization of psychiatric symptoms and safety. Patient has not signed adult voluntary form and medication consent and is placed in patient's chart. -Medications : Ativan 1 mg bid for catatonic sx. increase effexor 75 mg daily for mood/anxiety, remeron 30 mg qhs for insomnia/mood. -Ativan and Haldol PRN for agitation/aggression -Internal Medicine consult to perform medical evaluation and physical -NRT - nicotine patch -SW on board for discharge planning. Encourage patient to participate in groups to work on coping skills. Currently awaiting deferral and hearing date.
[2023-01-04] MEDS: MIRTAZAPINE 15 MG TAB PO SCH (21:26)
[2023-01-05] MEDS: VENLAFAXINE HCL ER 75 MG CAP PO SCH (09:51)
[2023-01-05] MEDS: NICOTINE 14MG/24HR PATCH TRANSDERM SCH (09:52)
[2023-01-05] MEDS: LORazepam 1 MG TAB PO SCH (09:52)
[2023-01-05 10:15] LABS: Basophils % (A) 1 %; Eosinophils # (A) 0.1 k/uL (0-0.7); Eosinophils % (A) 1 %; HCT 42.5 % (34.0-46.0); HGB 14.8 gm/dL (11.4-16.0); Lymphocytes % (A) 28 %; MCH 31.7 pg (25.0-35.0); MCHC 34.8 g/dL (31.0-37.0); MCV 91.1 fL (80.0-100.0); Mean Platelet Volume 9.8; Monocytes # (A) 0.4 k/uL (0-1.0); Monocytes % (A) 5 %; Neutrophils # (A) 4.4 k/uL (1.3-7.7); Neutrophils % (A) 64 %; Platelet Count 203 k/uL (150-450); RBC 4.67 m/uL (3.80-5.40); RDW 12.8 % (11.5-15.5); WBC 6.9 k/uL (3.8-10.6)
[2023-01-05 10:29] LABS: ALT 39 U/L (4-34); AST 75 U/L (14-36); African American GFR (CKD) >90 (>60 ml/min/1.73 sqM); Albumin 4.2 g/dL (3.5-5.0); Alkaline Phosphatase 57 U/L (38-126); Anion Gap 9 mmol/L; Blood Urea Nitrogen 29 mg/dL (7-17); Calcium 9.5 mg/dL (8.4-10.2); Carbon Dioxide 26 mmol/L (22-30); Chloride 109 mmol/L (98-107); Glucose 120 mg/dL (74-99); Non-African American GFR(CKD) 86 (>60 ml/min/1.73 sqM); Potassium 4.1 mmol/L (3.5-5.1); Sodium 144 mmol/L (137-145); Total Bilirubin 0.6 mg/dL (0.2-1.3); Total Protein 6.9 g/dL (6.3-8.2)
--- NOTE | 2023-01-05 10:41 | P.PN ---
Progress Note - Text Progress Note Date: 01/05/23 Interval History: Patient was seen today for psychiatric follow-up as she was lying in her bed. Patient was able to set up however continues to have poor eye contact with production underwriter. She continues to be fairly concrete and has a depressed affect. She claims that she is currently homeless, she does not know where she will be living. She claims that she was able to sleep better last night, mild improvement in her anxiety and mood. She states that her appetite is improving. Continues to isolate in her room and did not attend many groups. She appears to have very mild and poor insight. She was alert and oriented 3 today, appeared to have improvement in concentration. She is agreeable to continue on with treatment at this time. At this time patient denies any suicidal or homical ideations, intent or plan. Patient denies any auditory, visual hallucinations and denies any paranoia or delusions. Patient denies any side effects from the medications and has been compliant with meds. Mental Status Exam: General Appearance: Patient appears to be stated age is alert, directable, and attempts to be cooperative. Behavior: Patient is calmly seated without any agitated behavior. constricted Speech: Patient's speech is fluent and nonpressured. [place], improving mildly Mood/Affect: Mood is depressed and anxious, affect is congruent and constricted. Suicidality/Homicidality: Patient denies having any suicidal or homicidal ideation intent or plan. Perceptions: Patient denies any visual hallucinations and denies any auditory hallucinations Though content/process: There is no evidence of any delusional thought content and thought process is linear and goal-directed. [place]. Memory and concentration: AOX3, grossly intact for the purposes of this session Judgment and insight: Poor, Improving mildly Assessment Major depressive disorder recurrent severe catatonia nicotine dependence PLAN: -Patient is admitted under involuntary status to MHU for stabilization of psychiatric symptoms and safety. Patient has not signed adult voluntary form and medication consent and is placed in patient's chart. -Medications : will attempt to taper down Ativan, decrease to 0.5 mg tid for catatonic sx. effexor 75 mg daily for mood/anxiety, remeron 30 mg qhs for insomnia/mood. -Ativan and Haldol PRN for agitation/aggression -Internal Medicine consult to perform medical evaluation and physical -NRT - nicotine patch -SW on board for discharge planning. Encourage patient to participate in groups to work on coping skills. Currently awaiting deferral and hearing date. likely discharge next week if patient improves, she is currently homeless at this time.
[2023-01-05] MEDS: LORazepam 0.5 MG TAB PO SCH ×2 (16:11→20:30)
[2023-01-05] MEDS: MIRTAZAPINE 15 MG TAB PO SCH (20:30)
[2023-01-06] MEDS: VENLAFAXINE HCL ER 75 MG CAP PO SCH (09:56)
[2023-01-06] MEDS: NICOTINE 14MG/24HR PATCH TRANSDERM SCH (09:56)
[2023-01-06] MEDS: LORazepam 0.5 MG TAB PO SCH ×2 (09:57→21:03)
--- NOTE | 2023-01-06 11:52 | P.PN ---
Progress Note - Text Progress Note Date: 01/06/23 Interval History: Patient was seen today for psychiatric follow-up as she was lying in her bed. Patient continues to have very poor eye contact. She was directable and answered questions appropriately. She states that she is still feeling somewhat depressed, mild anxiety. Continues to state that she does not know where she will go when she is discharged. States that her sister will be coming over the weekend to see her and help her with discharge planning. She is not reporting any problems with sleep, states she is sleeping throughout the night. She is agreeable to continue with the medications at this time. She claims that her appetite is improving mildly. Continues isolating in her room. At this time patient denies any suicidal or homical ideations, intent or plan. Patient denies any auditory, visual hallucinations and denies any paranoia or delusions. Patient denies any side effects from the medications and has been compliant with meds. Mental Status Exam: General Appearance: Patient appears to be stated age is alert, directable, and attempts to be cooperative. Behavior: Patient is calmly seated without any agitated behavior. constricted Speech: Patient's speech is fluent and nonpressured. [place], improving mildly Mood/Affect: Mood is depressed and anxious, improving mildly, affect is congruent and constricted. Improving mildly Suicidality/Homicidality: Patient denies having any suicidal or homicidal ideation intent or plan. Perceptions: Patient denies any visual hallucinations and denies any auditory hallucinations Though content/process: There is no evidence of any delusional thought content and thought process is linear and goal-directed. [place]. Memory and concentration: AOX3, grossly intact for the purposes of this session Judgment and insight: Poor, Improving mildly Assessment Major depressive disorder recurrent severe catatonia nicotine dependence PLAN: -Patient is admitted under involuntary status to MHU for stabilization of psychiatric symptoms and safety. Patient has not signed adult voluntary form and medication consent and is placed in patient's chart. -Medications : continue with taper down Ativan, decrease to 0.5 mg bid for catatonic sx, and decr during the weekend. increase effexor 150 mg daily for mood/anxiety, remeron 30 mg qhs for insomnia/mood. -Ativan and Haldol PRN for agitation/aggression -Internal Medicine consult to perform medical evaluation and physical -NRT - nicotine patch -SW on board for discharge planning. Encourage patient to participate in groups to work on coping skills. patient deferred with corporate associate attorney. likely discharge monday, patients sister is in the process of moving patients belongings out of the apartment and appears that sister is able to have patient stay with her in the meantime before findign a more permanent place.
[2023-01-06] MEDS: MIRTAZAPINE 15 MG TAB PO SCH (21:03)
[2023-01-07] MEDS: VENLAFAXINE HCL ER 150 MG CAP PO SCH (09:31)
[2023-01-07] MEDS: LORazepam 0.5 MG TAB PO SCH ×2 (09:31→22:43)
[2023-01-07] MEDS: NICOTINE 14MG/24HR PATCH TRANSDERM SCH (09:32)
--- NOTE | 2023-01-07 11:46 | P.PN ---
Subjective Progress Note Date: 01/07/23 Principal diagnosis: Assessment Major depressive disorder recurrent severe catatonia at time of admission nicotine dependence Patient Name: Sandra Chen Date of : 1965 Patient Status: Inpatient Attending Provider: Avel Sawant : 01/07/23 Follow-up by Dr. Conrad Kang M.D. Subjective data: The patient was seen for the first time Patient states that she is not sure as to why she is here but states that she was getting confused She says that she lives here and is planning to move to a different town just for a change She states that she does not have any family here although patient was spaced or had few minutes later where her sister was reporting that she was here to see her patient was ready to go her and stated that that was her sister was calling Patient also states that she has 2 children but that she does not see them much She is not reporting any problems with sleep, states she is sleeping throughout the night. She is agreeable to continue with the medications at this time. Continues isolating in her room. At this time patient denies any suicidal or homical ideations, intent or plan. Patient denies any auditory, visual hallucinations and denies any paranoia or delusions. Patient denies any side effects from the medications and has been compliant with meds. Mental Status Exam: General Appearance: Patient appears to be stated age is alert, directable, and attempts to be cooperative. Behavior: Patient is calm without any agitated behavior. Speech: Patient's speech is fluent and nonpressured. [place], improving mildly patient exhibits positive thoughts with minimal inquiry THE Mood/Affect: Mood is depressed and anxious, improving mildly, affect is congrue nt and constricted. Improving mildly Suicidality/Homicidality: Patient denies having any suicidal or homicidal ideation intent or plan. Perceptions: Patient denies any visual hallucinations and denies any auditory hallucinations Though content/process: There is no evidence of any delusional thought content and thought process is linear and goal-directed. [place]. Memory and concentration: AOX3, grossly intact for the purposes of this session Judgment and insight: Poor, Assessment Major depressive disorder recurrent severe catatonia nicotine dependence PLAN: -Patient is admitted under involuntary status to MHU for stabilization of psychiatric symptoms and safety. Patient has not signed adult voluntary form and medication consent and is placed in patient's chart. -Medications : continue with taper down Ativan, decrease to 0.5 mg bid for catatonic sx, and decr during the weekend. effexor 150 mg daily for mood/anxiety, remeron 30 mg qhs for insomnia/mood. -Ativan and Haldol PRN for agitation/aggression -Internal Medicine consult to perform medical evaluation and physical -NRT - nicotine patch -SW on board for discharge planning. Encourage patient to participate in groups to work on coping skills. patient deferred with divorce attorney. likely discharge monday, patients sister is in the process of moving patients belongings out of the apartment and appears that sister is able to have patient stay with her in the meantime before findign a more permanent place. Conrad Kang M.D. 01/07/2023 Objective - Vital Signs Vital signs: Vital Signs Temp 98.3 F 01/07/23 07:03 Pulse 50 L 01/07/23 07:03 Resp 16 01/07/23 07:03 BP 99/57 01/07/23 07:03 Pulse Ox 93 L 01/07/23 07:03 FiO2 - Labs CBC & Chem 7: 01/05/23 09:45 01/05/23 09:45
[2023-01-07] MEDS: MIRTAZAPINE 15 MG TAB PO SCH (21:18)
[2023-01-08 07:08] VITALS: RESP 14
[2023-01-08] MEDS: VENLAFAXINE HCL ER 150 MG CAP PO SCH (08:54)
[2023-01-08] MEDS: LORazepam 0.5 MG TAB PO SCH (08:55)
--- NOTE | 2023-01-08 09:45 | P.PN ---
Subjective Progress Note Date: 01/08/23 Principal diagnosis: Assessment Major depressive disorder recurrent severe catatonia at time of admission nicotine dependence Patient Name: Sandra Chen Date of : 1965 Patient Status: Inpatient Attending Provider: Avel Sawant : 01/08/23 Follow-up by Dr. Conrad Kang M.D. Subjective data: The patient was seen for a follow-up Patient states that she had a good visit with her sister yesterday and now she plans to stay in this area She says that as children live in [place] and that she is considering going there but she has changed her mind She says that she can always visit them there if she wants to At this time patient denies any suicidal or homical ideations, intent or plan. Patient denies any auditory, visual hallucinations and denies any paranoia or delusions. Patient denies any side effects from the medications and has been compliant with meds. Mental Status Exam: General Appearance: Patient appears to be stated age is alert, directable, and attempts to be cooperative. Behavior: Patient is calm without any agitated behavior. Speech: Patient's speech is fluent and nonpressured. [place], improving mildly patient exhibits positive thoughts with minimal inquiry THE Mood/Affect: Mood is depressed and anxious, improving mildly, affect is congruent and constricted. Improving mildly Suicidality/Homicidality: Patient denies having any suicidal or homicidal ideation intent or plan. Perceptions: Patient denies any visual hallucinations and denies any auditory hallucinations Though content/process: There is no evidence of any delusional thought content and thought process is linear and goal-directed. [place]. Memory and concentration: AOX3, grossly intact for the purposes of this session Judgment and insight: Poor, improving Assessment Major depressive disorder recurrent severe catatonia improving nicotine dependence PLAN: -Patient is admitted under involuntary status to MHU for stabilization of psychiatric symptoms and safety. Patient has not signed adult voluntary form and medication consent and is placed in patient's chart. -Medications : continue with taper down Ativan, decrease to 0.5 mg bid for catatonic sx, and decr during the weekend. effexor 150 mg daily for mood/anxiety, remeron 30 mg qhs for insomnia/mood. -Ativan and Haldol PRN for agitation/aggression -Internal Medicine consult to perform medical evaluation and physical -NRT - nicotine patch -SW on board for discharge planning. Encourage patient to participate in groups to work on coping skills. patient deferred with defense attorney. likely discharge monday, patients sister is in the process of moving patients belongings out of the apartment and appears that sister is able to have patient stay with her in the meantime before findign a more permanent place. Conrad Kang M.D. 01/08/2023 Objective - Vital Signs Vital signs: Vital Signs Temp 97.2 F L 01/08/23 06:34 Pulse 46 L 01/08/23 06:34 Resp 14 01/08/23 06:34 BP 109/57 01/08/23 06:34 Pulse Ox 93 L 01/07/23 07:03 FiO2 - Labs CBC & Chem 7: 01/05/23 09:45 01/05/23 09:45
[2023-01-08] MEDS: MIRTAZAPINE 15 MG TAB PO SCH (20:23)
[2023-01-09 07:11] VITALS: BP 98/55; PULSE 48; TEMP 97.7
[2023-01-09] MEDS: VENLAFAXINE HCL ER 150 MG CAP PO SCH (09:25)
--- NOTE | 2023-01-09 10:06 | P.DS ---
Providers Date of admission: 01/03/23 02:19 Expected date of discharge: 01/09/23 Attending physician: Avel Sawant MD Consults: 01/03/23 02:24 Consult Physician Routine Consulting Provider: Alondra Valenzuela Consult Reason/Comments: For H & P for Medical Follow Up Do you want consulting provider notified?: Yes Primary care physician: Stated None - Discharge Diagnosis(es) (1) Major depressive disorder, severe Current Visit: Yes Status: Acute Priority: High (2) Catatonia Current Visit: Yes Status: Acute Priority: High (3) Nicotine dependence Current Visit: Yes Status: Acute Priority: Low Hospital Course: Admission HPI: Admission note was completed by loan underwriter "Patient is a 57-year-old female who presented to the hospital on a petition and certificate by her sister for concerns about patient mental status. Patient presented to the hospital brought in by family members and was petitioned by sister for confusion, not able to take care of herself, lying. Patient has a history of major depressive disorder and catatonia. Patient was last admitted to psychiatric unit in April 2022 and treated for severe depression with catatonia. Patient was also following up at [facility]. Patient was seen today in her room laying in bed. Patient was breathing and somnolent. Supervisor [employer]enic [employer] attempted to wake up patient several times and patient grunted refused to answer questions was uncooperative return to decide. She is not able to answer whether she was endorsing suicidal or homicidal ideations or auditory or visual hallucinations. Currently awaiting UDS and lab work. The rest of the information was taken from EMR and previous notes from providers." Hospital course: Upon admission to the unit patient was admitted involuntarily on a petition and certificate and a second certificate was completed and faxed with the courts. Patient ended up signing a deferral with the staff attorney and agreeing to treatment. Patient was initially catatonic, mainly isolative in her room however with time treatment she eventually got along well with other patients on the unit and followed unit protocol. Patient was compliant with the medications and denied any side effects throughout hospital course. Patient was started on Ativan scheduled for catatonia and was gradually tapered off as patient was improving. Patient was also restarted back on Effexor and increased her dose of 150 mg daily for mood/anxiety, Remeron 30 mg daily at bedtime for insomnia/mood. Patient spoke of her stressors and engaged in therapy both group and individual. Patient was also seen by medical team for history and physical exam. Throughout the course of the hospitalization patient gradually improved with regards to mood, anxiety, catatonic symptoms, sleep and became more future oriented with improved insight and judgment. On the day of discharge patient denied any suicidal or homicidal ideations intent or plan denied any auditory or visual hallucinations. Patient endorsed wanting to live for her family and her future. The patient denied any access to guns or weapons. Patient denied any paranoia and did not endorse any delusions. Patient does not have a significant history of substance abuse and was counseled on abstaining from all substances including alcohol and marijuana. Patient was also counseled on the medications and need for regular compliance and was encouraged to follow-up with their outpatient appointment for mental health and also for primary care. Prior to discharge a family meeting will be arranged by social media coordinator to answer any questions and ensure safety upon discharge. Patient will be staying with her sister upon discharge for the time being and eventually get her own apartment again. Mental status exam: General Appearance: Patient appears to be wearing glasses, stated age is alert, pleasant, and cooperative. Patient is in no acute distress and has improved hygiene and grooming. Improved eye contact Behavior: Patient is calmly seated without any agitated behavior. Pleasant and cooperative Speech: Patient's speech is fluent and nonpressured. Mood/Affect: Patient reports their mood is "better", affect is congruent and euthymic. Suicidality/Homicidality: Patient denies having any suicidal or homicidal ideation intent or plan. Perceptions: Patient denies any auditory or visual hallucinations. Though content/process: There is no evidence of any delusional thought content and thought process is linear and goal-directed. more future oriented Memory and concentration: AOX3, grossly intact for the purposes of this session. Can spell "WORLD" backwards correctly. Judgment and insight: improved with guarded prognosis Impression: Major depressive disorder recurrent severe Catatonia Nicotine dependence Plan: -Continue with discharge today as patient has improved and stabilized psychiatrically and is not currently an imminent threat to herself and/or others. Patient will remain at chronically elevated risk for harm to self and/or others due to her hx of non compliance. -Continue medications: Ativan was tapered off and discontinued for catatonic symptoms that have resolved. Effexor 150 mg daily for mood/anxiety, Remeron 30 mg daily at bedtime for insomnia/mood. -Patient was counseled on the need for medication compliance and appropriate follow-up at mental health and also primary care for medical issues. Patient verbalized understanding and agreed. -Social work to arrange for and conduct family meeting to ensure safety upon discharge and answer any questions/concerns. Social work also to arrange for patients follow up appointments with [facility] for psychiatric care along with follow up with primary care provider. loan underwriter spoke with patient in depth about her condition of catatonia and the importance of adherence to treatment and meds and the consequences of slipping back into catatonic state if she does not, she verbally understood and agreed. -Patient counseled on abstaining from recreational drugs and marijuana and alcohol. Was informed/educated on the adverse effects on their physical and mental health. Patient verbally agreed and understood. -Patient was instructed to return to the hospital or seek immediate medical care if their psychiatric or medical symptoms do worsen or reoccur. Allergies Allergy/AdvReac Type Severity Reaction Status Date / Time Sulfa (Sulfonamide Allergy Unknown Verified 01/02/23 21:45 Antibiotics) Laboratory Results WBC 6.9 k/uL (3.8-10.6) 01/05/23 09:45 RBC 4.67 m/uL (3.80-5.40) 01/05/23 09:45 Hgb 14.8 gm/dL (11.4-16.0) 01/05/23 09:45 Hct 42.5 % (34.0-46.0) 01/05/23 09:45 MCV 91.1 fL (80.0-100.0) 01/05/23 09:45 MCH 31.7 pg (25.0-35.0) 01/05/23 09:45 MCHC 34.8 g/dL (31.0-37.0) 01/05/23 09:45 RDW 12.8 % (11.5-15.5) 01/05/23 09:45 Plt Count 203 k/uL (150-450) 01/05/23 09:45 MPV 9.8 01/05/23 09:45 Neutrophils % 64 % 01/05/23 09:45 Lymphocytes % 28 % 01/05/23 09:45 Monocytes % 5 % 01/05/23 09:45 Eosinophils % 1 % 01/05/23 09:45 Basophils % 1 % 01/05/23 09:45 Neutrophils # 4.4 k/uL (1.3-7.7) 01/05/23 09:45 Lymphocytes # 2.0 k/uL (1.0-4.8) 01/05/23 09:45 Monocytes # 0.4 k/uL (0-1.0) 01/05/23 09:45 Eosinophils # 0.1 k/uL (0-0.7) 01/05/23 09:45 Basophils # 0.0 k/uL (0-0.2) 01/05/23 09:45 Sodium 144 mmol/L (137-145) 01/05/23 09:45 Potassium 4.1 mmol/L (3.5-5.1) 01/05/23 09:45 Chloride 109 mmol/L (98-107) H 01/05/23 09:45 Carbon Dioxide 26 mmol/L (22-30) 01/05/23 09:45 Anion Gap 9 mmol/L 01/05/23 09:45 BUN 29 mg/dL (7-17) H 01/05/23 09:45 Creatinine 0.78 mg/dL (0.52-1.04) 01/05/23 09:45 Est GFR (CKD-EPI)AfAm >90 (>60 ml/min/1.73 sqM) 01/05/23 09:45 Est GFR (CKD-EPI)NonAf 86 (>60 ml/min/1.73 sqM) 01/05/23 09:45 Glucose 120 mg/dL (74-99) H 01/05/23 09:45 Calcium 9.5 mg/dL (8.4-10.2) 01/05/23 09:45 Total Bilirubin 0.6 mg/dL (0.2-1.3) 01/05/23 09:45 AST 75 U/L (14-36) H 01/05/23 09:45 ALT 39 U/L (4-34) H 01/05/23 09:45 Alkaline Phosphatase 57 U/L (38-126) 01/05/23 09:45 Total Protein 6.9 g/dL (6.3-8.2) 01/05/23 09:45 Albumin 4.2 g/dL (3.5-5.0) 01/05/23 09:45 TSH 0.459 mIU/L (0.465-4.680) L 01/05/23 09:45 Free T4 1.50 ng/dL (0.78-2.19) 01/05/23 09:45 Coronavirus (PCR) Not Detected (Not Detectd) 01/03/23 00:08 Vital Signs Temp 97.7 F 01/09/23 06:38 Pulse 48 L 01/09/23 06:38 Resp 14 01/09/23 06:38 BP 98/55 01/09/23 06:38 Pulse Ox 93 L 01/07/23 07:03 FiO2 Intake & Output 01/08/23 01/09/23 01/09/23 18:59 06:59 18:59 Weight 90.6 kg Patient Condition at Discharge: Stable Plan - Discharge Summary Discharge Rx Participant: No New Discharge Prescriptions: New Venlafaxine HCl ER [Effexor XR] 150 mg PO DAILY 30 Days #30 cap Mirtazapine [Remeron] 30 mg PO HS 30 Days #60 tab Discharge Medication List Mirtazapine [Remeron] 30 mg PO HS 30 Days #60 tab 01/09/23 [Rx] Venlafaxine HCl ER [Effexor XR] 150 mg PO DAILY 30 Days #30 cap 01/09/23 [Rx] Follow up Appointment(s)/Referral(s): None,Stated [Primary Care Provider] - 1-2 days Patient Instructions/Handouts: Depression (DC) Activity/Diet/Wound Care/Special Instructions: Avoid the use of street drugs and alcohol. Take all medications as prescribed. When you are in need of refills on your medications, please contact your medical provider and/or outpatient psychiatrist/provider to have this done. Please go to your scheduled outpatient appointment for aftercare treatment. If symptoms return or become worse, call the crisis line at and/or go to the nearest emergency room for evaluation. National Suicide Hotline 331. Discharge Disposition: HOME SELF-CARE
== END 2023-01-09 14:35 | disposition home or self-care (01) | DRG 885 ==
LOC: EC 19:35 → 3MHU 01-03 02:19
PROVIDERS: ADMIT Psychiatry & Neurology Psychiatry; ATTEND Psychiatry & Neurology Psychiatry
DX: F33.2 Major depressive disorder, recurrent severe without psychotic features (principal); F41.9 Anxiety disorder, unspecified; F06.1 Catatonic disorder due to known physiological condition; G47.00 Insomnia, unspecified; F17.210 Nicotine dependence, cigarettes, uncomplicated; Z71.89 Other specified counseling; Z20.822 Contact with and (suspected) exposure to COVID-19; L55.9 Sunburn, unspecified; Z28.21 Immunization not carried out because of patient refusal; Z79.899 Other long term (current) drug therapy; Z91.199 Patient's noncompliance with other medical treatment and regimen due to unspecified reason; Z88.2 Allergy status to sulfonamides
CPT/HCPCS: 80053; 82075; 84439; 84443; 85025; 87635; 99285

== ENCOUNTER 2023-10-21 10:20 | Inpatient (IN) | payer BC, MEDICAID, OTHER ==
--- NOTE | 2023-10-21 11:14 | ED ---
General Adult HPI - General Chief complaint: Psychiatric Symptoms Stated complaint: mental health Time Seen by Provider: 10/21/23 10:40 Source: patient, RN notes reviewed, old records reviewed Mode of arrival: ambulatory Limitations: no limitations - History of Present Illness Initial comments: This is a 58-year-old female who has a past medical history significant for depression. Patient states she was on medication and a couple months ago she was feeling so good she decided to stop it. Patient states over the last couple of weeks she has become more more depressed and think she needs to get back on her medications. Patient states she did not follow-up with [facility]. Patient never told COVER OPERATOR she stopped her medication. Patient denies any suicidal or self harmful thoughts. Patient states she is just very depressed. Patient states there is no inciting reason for her depression to be worse at this time. Patient denies any physical complaints. Patient denies any drinking or drug use - Related Data Previous Rx's Medication Instructions Recorded Mirtazapine [Remeron] 30 mg PO HS 30 Days #60 tab 01/09/23 Venlafaxine HCl ER [Effexor XR] 150 mg PO DAILY 30 Days #30 cap 01/09/23 Allergies Allergy/AdvReac Type Severity Reaction Status Date / Time Sulfa (Sulfonamide Allergy Unknown Verified 01/02/23 21:45 Antibiotics) Review of Systems ROS Statement: Those systems with pertinent positive or pertinent negative responses have been documented in the HPI. ROS Other: All systems not noted in ROS Statement are negative. Past Medical History Past Medical History: Thyroid Disorder Additional Past Medical History / Comment(s): ovarian cyst History of Any Multi-Drug Resistant Organisms: None Reported Past Surgical History: Section, Hysterectomy Past Anesthesia/Blood Transfusion Reactions: No Reported Reaction Past Psychological History: Anxiety, Depression, Schizophrenia Smoking Status: Former smoker, Never smoker Past Alcohol Use History: None Reported Past Drug Use History: None Reported General Exam - General Exam Comments Initial Comments: GENERAL: Patient is well-developed and well-nourished. Patient is nontoxic and well- hydrated and is in no acute distress. ENT: Neck is soft and supple. No significant lymphadenopathy is noted. Oropharynx is clear. Moist mucous membranes. Neck has full range of motion without eliciting any pain. EYES: The sclera were anicteric and conjunctiva were pink and moist. Extraocular movements were intact and pupils were equal round and reactive to light. Eyelids were unremarkable. PULMONARY: Unlabored respirations. Good breath sounds bilaterally. No audible rales rhonchi or wheezing was noted. CARDIOVASCULAR: There is a regular rate and rhythm without any murmurs gallops or rubs. ABDOMEN: Soft and nontender with normal bowel sounds. SKIN: Skin is clear with no lesions or rashes and otherwise unremarkable. NEUROLOGIC: Patient is alert and oriented x3. Cranial nerves II through XII are grossly intact. Motor and sensory are also intact. Normal speech, volume and content. Symmetrical smile. MUSCULOSKELETAL: Normal extremities with adequate strength and full range of motion. PSYCHIATRIC: Patient is affect is flat. Patient does appear very depressed and is seeking help but she is not suicidal or homicidal Limitations: no limitations Course Vital Signs 10/21/23 10:26 Temperature 98.5 F Pulse Rate 59 L Respiratory 16 Rate Blood Pressure 122/78 O2 Sat by Pulse 99 Oximetry Medical Decision Making - Medical Decision Making Was pt. sent in by a medical professional or institution (, PA, OPTIMIZATION CONSULTANT, urgent care, hospital, or [facility]...) When possible be specific @ -No Did you speak to anyone other than the patient for history (EMS, parent, family, police, friend...)? What history was obtained from this source @ -No Did you review nursing and triage notes (agree or disagree)? Why? @ -I reviewed and agree with nursing and triage notes Were old charts reviewed (outside hosp., previous admission, EMS record, old EKG, old radiological studies, urgent care reports/EKG's, [facility] records)? Report findings @ -No old charts were reviewed Differential Diagnosis (chest pain, altered mental status, abdominal pain women, abdominal pain men, vaginal bleeding, weakness, fever, dyspnea, syncope, headache, dizziness, GI bleed, back pain, seizure, CVA, palpatations, mental health, musculoskeletal)? @ -Differential Mental Health Depression, anxiety, bipolar, psychosis, schizophrenia, borderline personality, situational depression, adjustment disorder, behavioral disorder, brain tumor, malingering, substance abuse, encephalopathy, medication reaction, dementia, hypothyroidism, degenerative neurologic disorder, lupus.... This is not meant to be all-inclusive list EKG interpreted by me (3pts min.). @ -As above X-rays interpreted by me (1pt min.). @ -None done CT interpreted by me (1pt min.). @ -None done U/S interpreted by me (1pt. min.). @ -None done What testing was considered but not performed or refused? (CT, X-rays, U/S, labs)? Why? @ -None What meds were considered but not given or refused? Why? @ -None Did you discuss the management of the patient with other professionals (professionals i.e. DrJustino, PA, OPTIMIZATION CONSULTANT, lab, RT, psych nurse, licensed social worker, knockdown worker, teacher, safety and security officer, mattress spring encaser)? Give summary @ -I spoke with EPS about the patient's complaints and EPS spoke with the psychiatrist. It has been determined the patient needs inpatient therapy so the patient will be admitted Was smoking cessation discussed for >3mins.? @ -No Was critical care preformed (if so, how long)? @ -No Were there social determinants of health that impacted care today? How? (Homelessness, low income, unemployed, alcoholism, drug addiction, transportation, low edu. Level, literacy, decrease access to med. care, long term, rehab)? @ -No Was there de-escalation of care discussed even if they declined (Discuss DNR or withdrawal of care, Hospice)? DNR status @ -No What co-morbidities impacted this encounter? (DM, HTN, Smoking, COPD, CAD, Cancer, CVA, ARF, Chemo, Hep., AIDS, mental health diagnosis, sleep apnea, morbid obesity)? @ -None Was patient admitted / discharged? Hospital course, mention meds given and route, prescriptions, significant lab abnormalities, going to OR and other pertinent info. @ -Hospital course Undiagnosed new problem with uncertain prognosis? @ -Depression Drug Therapy requiring intensive monitoring for toxicity (Heparin, Nitro, Insulin, Cardizem)? @ -No Were any procedures done? @ -No Diagnosis/symptom? @ -Depression Acute, or Chronic, or Acute on Chronic? @ -Acute Uncomplicated (without systemic symptoms) or Complicated (systemic symptoms)? @ -Complicated Side effects of treatment? @ -No Exacerbation, Progression, or Severe Exacerbation? @ -No Poses a threat to life or bodily function? How? (Chest pain, USA, SC, pneumonia, PE, COPD, DKA, ARF, appy, cholecystitis, CVA, Diverticulitis, Homicidal, Suicidal, threat to staff... and all critical care pts) @ -No - Lab Data Lab Results 10/21/23 Range/Units 13:02 Urine Opiates Screen Not Detected (NotDetected) Ur Oxycodone Screen Not Detected (NotDetected) Urine Methadone Screen Not Detected (NotDetected) Ur Barbiturates Screen Not Detected (NotDetected) U Tricyclic Antidepress Not Detected (NotDetected) Ur Phencyclidine Scrn Not Detected (NotDetected) Ur Amphetamines Screen Not Detected (NotDetected) U Methamphetamines Scrn Not Detected (NotDetected) U Benzodiazepines Scrn Not Detected (NotDetected) Urine Cocaine Screen Not Detected (NotDetected) U Marijuana (THC) Screen Not Detected (NotDetected) Disposition Clinical Impression: Depression Disposition: ADMITTED IP TO THIS HOSP Referrals: Kar Martínez MD [Primary Care Provider] - 1-2 days Time of Disposition: 14:37
[2023-10-21 13:40] LABS: Amphetamine Screen,Urine Not Detected (NotDetected); Barbiturate Screen,Urine Not Detected (NotDetected); Benzodiazepines Screen,Urine Not Detected (NotDetected); Cocaine Screen,Urine Not Detected (NotDetected); Methadone Screen, Urine Not Detected (NotDetected); Opiate Screen,Urine Not Detected (NotDetected); Oxycodone Screen, Urine Not Detected (NotDetected); Phencyclidine Screen,Urine Not Detected (NotDetected); Tricyclic Antidepressant,Urine Not Detected (NotDetected); Urn Cannabinoid Scrn Not Detected (NotDetected)
[2023-10-21] MEDS ORDERED: ACETAMINOPHEN TAB 325 MG TAB PO PRN (16:02)
[2023-10-21] MEDS ORDERED: LORazepam 1 MG TAB PO PRN (16:02)
[2023-10-21] MEDS ORDERED: IBUPROFEN 600 MG TAB PO PRN (16:02)
[2023-10-21] MEDS ORDERED: MAG HYDROX/AL HYDROX/SIMETH 355 ML BOTTLE PO PRN (16:02)
--- NOTE | 2023-10-22 08:30 | P.HP ---
Psychiatric H&P - . H&P Date: 10/22/23 History & Physical: Allergies Allergy/AdvReac Type Severity Reaction Status Date / Time Sulfa (Sulfonamide Allergy Unknown Verified 10/21/23 17:21 Antibiotics) wheat Allergy Unknown Verified 10/21/23 17:21 Vital Signs Temp 98.0 F 10/22/23 06:34 Pulse 59 L 10/22/23 06:34 Resp 16 10/22/23 06:34 BP 105/57 10/22/23 06:34 Pulse Ox 99 10/22/23 06:34 FiO2 Intake & Output 10/21/23 10/22/23 10/22/23 18:59 06:59 18:59 Weight 72 kg Laboratory Last Values Urine Opiates Screen Not Detected (NotDetected) 10/21/23 13:02 Ur Oxycodone Screen Not Detected (NotDetected) 10/21/23 13:02 Urine Methadone Screen Not Detected (NotDetected) 10/21/23 13:02 Ur Barbiturates Screen Not Detected (NotDetected) 10/21/23 13:02 U Tricyclic Antidepress Not Detected (NotDetected) 10/21/23 13:02 Ur Phencyclidine Scrn Not Detected (NotDetected) 10/21/23 13:02 Ur Amphetamines Screen Not Detected (NotDetected) 10/21/23 13:02 U Methamphetamines Scrn Not Detected (NotDetected) 10/21/23 13:02 U Benzodiazepines Scrn Not Detected (NotDetected) 10/21/23 13:02 Urine Cocaine Screen Not Detected (NotDetected) 10/21/23 13:02 U Marijuana (THC) Screen Not Detected (NotDetected) 10/21/23 13:02 SARS-CoV-2 (PCR) Not Detected (Not Detectd) 10/21/23 14:46 10/22/23 08:25 This is a psychiatric assessment on this 58-year-old female who was hospitalized after patient was brought in because of increasing depression and vague suicidal ideations Patient states that she has become homeless for about a week and has been living in her car She said that she had some arguments with her sister with whom she was living before and that she was kicked out of the house Patient did not elaborate but when asked if she had any relationship issues she shook her head in an affirmative She did not elaborate for any further The ER report also gives some further information as patient is not very forthcoming has a past medical history significant for depression. Patient states she was on medication and a couple months ago she was feeling so good she decided to stop it. Patient states over the last couple of weeks she has become more more depressed and think she needs to get back on her medications. Patient states she did not follow-up with [facility]. Patient never told DRAFTING ENGINEER she stopped her medication. Patient denies any suicidal or self harmful thoughts. Patient states she is just very depressed. Patient states there is no inciting reason for her depression to be worse at this time. Patient denies any physical complaints. Patient denies any drinking or drug use Past Medical History Past Medical History: Thyroid Disorder Additional Past Medical History / Comment(s): ovarian cyst History of Any Multi-Drug Resistant Organisms: None Reported Past Surgical History: Section, Hysterectomy Past Anesthesia/Blood Transfusion Reactions: No Reported Reaction Past Psychological History: Anxiety, Depression, Schizophrenia Smoking Status: Former smoker, Never smoker Past Alcohol Use History: None Reported Past Drug Use History: None Reported Previous Rx's Medication Instructions Recorded Mirtazapine [Remeron] 30 mg PO HS 30 Days #60 tab 01/09/23 Venlafaxine HCl ER [Effexor XR] 150 mg PO DAILY 30 Days #30 cap 01/09/23 Allergies Allergy/AdvReac Type Severity Reaction Status Date / Time Sulfa (Sulfonamide Allergy Unknown Verified 01/02/23 21:45 Antibiotics) The patient and her current state of mind is felt to be danger to self with incr easing psychomotor agitation and depression and anxiety and feelings of helplessness and hopelessness and was hospitalized for further evaluation and treatment Past history personal social history Patient remains very guarded and superficial at this time response mostly in monosyllables and is not able to give any further information Further information will be collected at a later date when patient is more settled and able to communicate adequately Mental status examination: Reveals a middle-aged female who appears about her age and currently appears very withdrawn Patient is deeply sunburned and states that she has been time for the last few days in the sun Patient admits feeling depressed Patient did not verbally respond to any questions but mostly through gestures Affect remains downcast Patient would not verbalize but mostly admitted to feeling helpless and hopeless She denies any suicidal plans at this time but admits having suicidal thoughts Self-esteem and confidence appears to be low Formal operational judgment and insight remains impaired Problem solving skills are impaired Plan: Plan: The patient has been hospitalized on the unit for further evaluation and treatment Therapy will be focused on providing supportive care and improving her coping abilities with a multimodal treatment Patient will also participate in outdoor activities individual milieu group OT RT PT and pharmacotherapy Patient also will be a candidate for referral to substance use program technical services assistant on board regarding appropriate discharge planning and family intervention as needed Patient will also get as needed /Zyprexa/lorazepam as needed for agitation Approximate of stay would be 5 to 10 days days Conrad Kang MD
[2023-10-22] MEDS: VENLAFAXINE HCL ER 150 MG CAP PO SCH (08:57)
[2023-10-22 09:26] LABS: Basophils % (A) 1 %; Eosinophils # (A) 0.1 k/uL (0-0.7); Eosinophils % (A) 2 %; HCT 39.8 % (34.0-46.0); HGB 13.9 gm/dL (11.4-16.0); Lymphocytes # (A) 1.7 k/uL (1.0-4.8); Lymphocytes % (A) 38 %; MCH 31.3 pg (25.0-35.0); MCHC 34.8 g/dL (31.0-37.0); MCV 89.9 fL (80.0-100.0); Mean Platelet Volume 9.9; Monocytes # (A) 0.3 k/uL (0-1.0); Monocytes % (A) 7 %; Neutrophils # (A) 2.1 k/uL (1.3-7.7); Neutrophils % (A) 49 %; Platelet Count 234 k/uL (150-450); Poikilocytosis Slight; RBC 4.43 m/uL (3.80-5.40); RDW 14.1 % (11.5-15.5); WBC 4.3 k/uL (3.8-10.6)
[2023-10-22 09:39] LABS: ALT 30 U/L (4-34); AST 24 U/L (14-36); African American GFR (CKD) >90 (>60 ml/min/1.73 sqM); Albumin 4.1 g/dL (3.5-5.0); Alkaline Phosphatase 59 U/L (38-126); Anion Gap 11 mmol/L; Blood Urea Nitrogen 16 mg/dL (7-17); Calcium 9.3 mg/dL (8.4-10.2); Carbon Dioxide 23 mmol/L (22-30); Chloride 107 mmol/L (98-107); Glucose 57 mg/dL (74-99); Non-African American GFR(CKD) >90 (>60 ml/min/1.73 sqM); Potassium 4.1 mmol/L (3.5-5.1); Sodium 141 mmol/L (137-145); Total Bilirubin 0.9 mg/dL (0.2-1.3)
[2023-10-22 19:11] LABS: Appearance,Urine Clear (Clear); Bilirubin,Urine 1+ (Negative); Blood,Urine Negative (Negative); Color,Urine Yellow; Glucose,Urine (UA) Negative (Negative); Ketones,Urine 4+ (Negative); Leukocyte Esterase,Urine Small (Negative); Mucus,Urine Few /hpf; Nitrite,Urine Negative (Negative); PH, Urine 5.5 (5.0-8.0); Protein,Urine 1+ (Negative); RBC,Urine 1 /hpf (0-5); Specific Gravity,Urine 1.034 (1.001-1.035); Squamous Epithelial Cell,Urine 4 /hpf (0-4); WBC,Urine 7 /hpf (0-5)
[2023-10-22] MEDS: MIRTAZAPINE 15 MG TAB PO SCH (21:26)
--- NOTE | 2023-10-23 05:07 | HP ---
HISTORY AND PHYSICAL CHIEF COMPLAINT: Major depression and hallucinations. HISTORY OF PRESENT ILLNESS: This 58-year-old female was admitted to the psych unit. At present time, she is unavailable for this history and physical. These will be deferred. MMODL / IJN: [id number] /
[2023-10-23 08:43] LABS: LDL Cholesterol,Calculated 108.5 mg/dL (0.0-131.0)
--- NOTE | 2023-10-23 12:13 | P.PN ---
Progress Note - Text Progress Note Date: 10/23/23 Interval History: Patient was seen in her room and was directable and agreeable to speak with wr reyes in the office. Patient stated that she is feeling very depressed at this time. She claims that that she is not endorsing anxiety. Patient stated that she was staying in her car, but is not any more, because she can not afford to run it. Patient stated that she only wants to be on medication for depression. Fairly guarded about her stressors. She states that she did not sleep great last night. She also said she is not going to any groups. She is focused on medications, and how many milligrams she is on. She is very evasive and guarded. At this time patient denies any suicidal or homicidal ideations, intent or plan. Patient denies any auditory, visual hallucinations and denies any paranoia or delusions. Patient denies any side effects from the medications and has been compliant with meds. Mental Status Exam: General Appearance: Patient appears to be stated age is alert, directable, and cooperative. Has shoulder length pineda hair, wearing a hospital gown. Behavior: Patient is calmly seated without any agitated behavior.Evasive, guarded Speech: Patient's speech is fluent and nonpressured. Mood/Affect: Mood is depressed, affect is congruent and constricted. Appears depressed Suicidality/Homicidality: Patient denies having any suicidal or homicidal ideation intent or plan. Perceptions: Patient denies any visual hallucinations and denies any auditory hallucinations Though content/process: There is no evidence of any delusional thought content and thought process is linear and goal-directed. [place] and poverty of content Memory and concentration: AOX3, grossly intact for the purposes of this session Judgment and insight: poor Assessment major depressive disorder, without psychotic features anxiety disorder homelessness Plan: -Patient continues to meet criteria for inpatient psychiatric admission for symptom stabilization and safety. Patient has signed adult voluntary form and medication consent and was placed in patient's chart. -Medications: Effexor 150mg daily for mood/anxiety, Remeron 15mg qhs for mood/sleep -When necessary Ativan and Haldol for agitation/aggression. -NRT -nicotine patch -SW on board for discharge planning. Encouraged the patient to participate in milieu. Patient will likely need referral to [facility].
--- NOTE | 2023-10-24 11:22 | P.PN ---
Progress Note - Text Progress Note Date: 10/24/23 Interval History: Patient was seen in her room and was directable and agreeable to speak with wr iter in the office. Patient reports that she is feeling a little better today. She stated that her mood is about the same. She also said she is not yet going to any groups, bond writer encouraged patient to attend some groups. She remains evasive and guarded. Patient stated that she slept well last night, and that she is going to the [facility] for meals. At this time patient denies any suicidal or homicidal ideations, intent or plan. Patient denies any auditory, visual hallucinations and denies any paranoia or delusions. Patient denies any side effects from the medications and has been compliant with meds. Mental Status Exam: General Appearance: Patient appears to be stated age is alert, directable, and cooperative. Has shoulder length pineda hair, wearing a hospital gown. Behavior: Patient is calmly seated without any agitated behavior. guarded, mildly improivng Speech: Patient's speech is fluent and nonpressured. Mood/Affect: Mood is about the same, affect is congruent and constricted. Appears depressed Suicidality/Homicidality: Patient denies having any suicidal or homicidal ideation intent or plan. Perceptions: Patient denies any visual hallucinations and denies any auditory h allucinations Though content/process: There is no evidence of any delusional thought content and thought process is linear and goal-directed. [place] and poverty of content Memory and concentration: AOX3, grossly intact for the purposes of this session Judgment and insight: poor, mildly improving Assessment: major depressive disorder, without psychotic features anxiety disorder homelessness Plan: -Patient continues to meet criteria for inpatient psychiatric admission for symptom stabilization and safety. Patient has signed adult voluntary form and medication consent and was placed in patient's chart. -Medications: increase Effexor 225mg daily for mood/anxiety, Remeron 15mg qhs for mood/sleep -When necessary Ativan and Haldol for agitation/aggression. -NRT -nicotine patch -SW on board for discharge planning. Encouraged the patient to participate in milieu. Patient will likely need referral to homeless detention. Likely discharge the end of the week vs monday if patient psychiatrically improves
[2023-10-24 23:39] LABS: T4, Free (Free Thyroxine) 1.32 ng/dL (0.80-1.80)
[2023-10-25] MEDS: VENLAFAXINE HCL ER 75 MG CAP PO SCH (09:24)
--- NOTE | 2023-10-25 12:01 | P.PN ---
Progress Note - Text Progress Note Date: 10/25/23 Interval History: Patient was seen in her room and was directable and agreeable to speak with wr iter in the office. Patient reports that her mood is improving. Eye contact improving mildly. Patient stated that she is planning on going to a couple groups today, as she has not yet. Machine Turner encouraged the patient to get out of her room, and be visible on the unit. Continues to mainly isolate in her room, claims that she will be going to group today. Patient stated that she slept well last night, and that she is going to the [facility] for meals. At this time patient denies any suicidal or homicidal ideations, intent or plan.Patient offered no complaints. Patient denies any auditory, visual hallucinations and denies any paranoia or delusions. Patient denies any side effects from the medications and has been compliant with meds. Mental Status Exam: General Appearance: Patient appears to be stated age is alert, directable, and cooperative. Has shoulder length pineda hair, wearing a hospital gown. Behavior: Patient is calmly seated without any agitated behavior. guarded, mildly improivng Speech: Patient's speech is fluent and nonpressured. Mood/Affect: Mood is mildly improving, affect is congruent and constricted. mildly improving Suicidality/Homicidality: Patient denies having any suicidal or homicidal ideation intent or plan. Perceptions: Patient denies any visual hallucinations and denies any auditory hallucinations Though content/process: There is no evidence of any delusional thought content and thought process is linear and goal-directed. Memory and concentration: AOX3, grossly intact for the purposes of this session Judgment and insight: poor, mildly improving Assessment: major depressive disorder, without psychotic features anxiety disorder homelessness Plan: -Patient continues to meet criteria for inpatient psychiatric admission for symptom stabilization and safety. Patient has signed adult voluntary form and medication consent and was placed in patient's chart. -Medications: Effexor 225mg daily for mood/anxiety, d/c Remeron -When necessary Ativan and Haldol for agitation/aggression. -NRT -nicotine patch -SW on board for discharge planning. Encouraged the patient to participate in milieu. [facility] will [facility] Likely discharge monday if patient psychiatrically improves
--- NOTE | 2023-10-26 09:49 | P.PN ---
Progress Note - Text Progress Note Date: 10/26/23 Interval History: Patient was seen in her room and was directable and agreeable to speak with wr iter in the office. Patient reports that her mood continues to improve. Eye contact improving. Patient stated yesterday that she was going to go to groups, today, she stated that she did not attend any groups. Conservation Specialist encouraged patient to go to groups today, patient stated she would try. Continues to mainly isolate in her room. Patient stated that she slept well last night, and that she is going to the [facility] for meals. At this time patient denies any suicidal or homicidal ideations, intent or plan.Patient offered no complaints. Patient denies any auditory, visual hallucinations and denies any paranoia or delusions. Patient denies any side effects from the medications and has been compliant with meds. Mental Status Exam: General Appearance: Patient appears to be stated age is alert, directable, and cooperative. Has shoulder length pineda hair, wearing a hospital gown. Behavior: Patient is calmly seated without any agitated behavior. guarded, mildly improivng Speech: Patient's speech is fluent and nonpressured. Mood/Affect: Mood is mildly improving, affect is congruent and constricted. mildly improving Suicidality/Homicidality: Patient denies having any suicidal or homicidal ideation intent or plan. Perceptions: Patient denies any visual hallucinations and denies any auditory hallucinations Though content/process: There is no evidence of any delusional thought content and thought process is linear and goal-directed. Memory and concentration: AOX3, grossly intact for the purposes of this session Judgment and insight: poor, mildly improving Assessment: major depressive disorder, without psychotic features anxiety disorder homelessness Plan: -Patient continues to meet criteria for inpatient psychiatric admission for symptom stabilization and safety. Patient has signed adult voluntary form and medication consent and was placed in patient's chart. -Medications: Effexor 225mg daily for mood/anxiety -When necessary Ativan and Haldol for agitation/aggression. -NRT -nicotine patch -SW on board for discharge planning. Encouraged the patient to participate in milieu. Patient will likely need referral to homeless residential. Likely discharge tomorrow to a residential in [facility].
[2023-10-26] MEDS: haloperidoL 5 MG TAB PO PRN (16:29)
--- NOTE | 2023-10-27 11:17 | P.PN ---
Progress Note - Text Progress Note Date: 10/27/23 Interval History: Patient was seen in her room and was directable and agreeable to speak with wr iter in the office. Patient reports that her mood continues to improve. Eye contact improving. Patient continues to mainly isolate in her room. Patient stated that she slept well last night, and that she is going to the [facility] for meals. Patient remains fairly flat in affect. Patient stated she has no where to go, and that her car, that she was living in is broke down. There is no shelters in the area to discharge her to. Nurses reported that patient has been staring blankly, not responsive at times and mainly isolating in her room, there is concern for catatonic behavior/symptoms. At this time patient denies any suicidal or homicidal ideations, intent or plan. Patient offered no complaints. Patient denies any auditory, visual hallucinations and denies any paranoia or delusions. Patient denies any side effects from the medications and has been compliant with meds. Mental Status Exam: General Appearance: Patient appears to be stated age is alert, directable, and cooperative. Has shoulder length pineda hair, wearing casual clothing. Behavior: Patient is calmly seated without any agitated behavior. guarded, mildly improivng Speech: Patient's speech is fluent and nonpressured. Mood/Affect: Mood is mildly improving, affect is flat,congruent and constricted Suicidality/Homicidality: Patient denies having any suicidal or homicidal ideation intent or plan. Perceptions: Patient denies any visual hallucinations and denies any auditory hallucinations Though content/process: There is no evidence of any delusional thought content and thought process is linear and goal-directed. [place], poverty of content Memory and concentration: AOX3, grossly intact for the purposes of this session Judgment and insight: poor, mildly improving Assessment: major depressive disorder, without psychotic features anxiety disorder homelessness Plan: -Patient continues to meet criteria for inpatient psychiatric admission for symptom stabilization and safety. Patient has signed adult voluntary form and medication consent and was placed in patient's chart. -Medications: Effexor 225mg daily for mood/anxiety, add abilify 2.5mg daily, for mood stabilization/adjunct, increase to 5mg daily tomorrow. -When necessary Ativan and Haldol for agitation/aggression. -NRT -nicotine patch -SW on board for discharge planning. Encouraged the patient to participate in milieu. Patient will likely need referral to homeless [facility]. Likely discharge early next week if patient is improving
[2023-10-27] MEDS: ARIPiprazole 5 MG TAB PO ONE (11:41)
--- NOTE | 2023-10-28 09:25 | P.PN ---
Subjective Progress Note Date: 10/28/23 Principal diagnosis: Major depression recurrent nonpsychotic Lack of resources especially homelessness and no job right now Subjective patient says she is still worrying about the future but says that the sadness seems to be clearing she is in no racing thoughts no agitation self thoughts no homicidal thoughts. He says she slept well and ate well. Objective almost no eye contact slow responses low energy sad affect however responses fit the questions no signs of psychosis no aggression or agitation or tearfulness just kind of flat. No evidence of side effects on the Abilify General Appearance: Patient appears to be stated age is alert, directable, and cooperative. Has shoulder length pineda hair, wearing casual clothing. Behavior: Patient is calmly seated without any agitated behavior. guarded, mildly improivng Speech: Patient's speech is fluent and nonpressured. Mood/Affect: Mood is still depressed affect is flat,congruent and constricted Suicidality/Homicidality: Patient denies having any suicidal or homicidal ideation intent or plan. Perceptions: Patient denies any visual hallucinations and denies any auditory hallucinations Though content/process: There is no evidence of any delusional thought content and thought process is linear and goal-directed. [place], poverty of content Memory and concentration: AOX3, grossly intact for the purposes of this session Judgment and insight: Little unclear as to her plans Assessment: major depressive disorder, without psychotic features anxiety disorder homelessness Plan: No change in medication except increased from 2.5-5 on the Abilify for a little extra cover -Patient continues to meet criteria for inpatient psychiatric admission for symptom stabilization and safety. Patient has signed adult voluntary form and medication consent and was placed in patient's chart. -Medications: Effexor 225mg daily for mood/anxiety, add abilify 2.5mg daily, for mood stabilization/adjunct, increase to 5mg daily tomorrow. -When necessary Ativan and Haldol for agitation/aggression. -NRT -nicotine patch -SW on board for discharge planning. Encouraged the patient to participate in milieu. Patient will likely need referral to homeless retirement. Likely discharge early next week if patient is improving Objective - Vital Signs Vital signs: Vital Signs Temp 97.2 F L 10/28/23 06:00 Pulse 50 L 10/28/23 06:00 Resp 16 10/28/23 06:00 BP 96/52 10/28/23 06:00 Pulse Ox 95 10/28/23 06:00 FiO2 - Labs CBC & Chem 7: 10/22/23 08:56 10/22/23 08:56
[2023-10-28] MEDS: ARIPiprazole 5 MG TAB PO SCH (09:31)
--- NOTE | 2023-10-29 08:12 | P.PN ---
Subjective Progress Note Date: 10/29/23 Principal diagnosis: Major depression recurrent nonpsychotic Lack of resources especially homelessness and no job right now Subjective: The patient says she is still worrying about the future but says that the sadness seems to be clearing. She has no racing thoughts, no agitati on, no urge to hurt herself, and no homicidal thoughts. He says she slept well and she clarified that she has not eaten for the last 2 days because not because she has no hunger she is doing a purposeful fast but intends to break the fast today. She says she is feeling somewhat more hopeful today Objective: almost no eye contact, slow responses, low energy, sad affect. Her responses fit the questions and she has no signs of psychosis no aggression or agitation or tearfulness just kind of flat affect although she smiled at humor and seemed to be a little faster than yesterday. No evidence of side effects on the Abilify General Appearance: Patient appears to be stated age is alert, directable, and cooperative. Has shoulder length pineda hair, wearing casual clothing. Behavior: Patient is calmly seated without any agitated behavior. Speech: Patient's speech is fluent and nonpressured. Mood/Affect: Mood is still depressed affect is flat,congruent and constricted Suicidality/Homicidality: Patient denies having any suicidal or homicidal ideation intent or plan. Perceptions: Patient denies any visual hallucinations and denies any auditory hallucinations Though content/process: There is no evidence of any delusional thought content and thought process is linear and goal-directed. [place], poverty of content Memory and concentration: AOX3, grossly intact for the purposes of this session Judgment and insight: It is a little unclear as to her plans Assessment: major depressive disorder, without psychotic features anxiety disorder homelessness Plan: No change in medication. -Patient continues to meet criteria for inpatient psychiatric admission for symptom stabilization and safety. Patient has signed adult voluntary form and medication consent and was placed in patient's chart. -Medications: Effexor 225mg daily for mood/anxiety, add abilify 2.5mg daily, for mood stabilization/adjunct, increase to 5mg daily tomorrow. -When necessary Ativan and Haldol for agitation/aggression. -NRT -nicotine patch -SW on board for discharge planning. Encouraged the patient to participate in milieu. Patient will likely need referral to homeless prison. Likely discharge early next week if patient is improving Objective - Vital Signs Vital signs: Vital Signs Temp 97 F L 10/29/23 06:47 Pulse 61 10/29/23 06:47 Resp 14 10/29/23 06:47 BP 99/63 10/29/23 06:47 Pulse Ox 95 10/28/23 06:00 FiO2 - Labs CBC & Chem 7: 10/22/23 08:56 10/22/23 08:56
[2023-10-30 07:14] VITALS: TEMP 97.7
--- NOTE | 2023-10-30 12:55 | P.PN ---
Progress Note - Text Progress Note Date: 10/30/23 Interval History: Patient was seen in her room and was directable and agreeable to speak with wr iter in the office. Patient reports that her mood is much better. Eye contact improving. Patient has been more visible on the unit, and is wearing casual clothing, instead of a hospital gown. Patient stated that she slept well last night. Patient states she was fasting, therefore, not eating, but stated that she will eat today. Patient still have not attended any groups, however, states that she will be going today. At this time patient denies any suicidal or homicidal ideations, intent or plan. Patient offered no complaints. Patient denies any auditory, visual hallucinations and denies any paranoia or delusions. Patient denies any side effects from the medications and has been compliant with meds. Mental Status Exam: General Appearance: Patient appears to be stated age is alert, directable, and cooperative. Has shoulder length pineda hair, wearing casual clothing. Behavior: Patient is calmly seated without any agitated behavior. guarded, mildly improivng Speech: Patient's speech is fluent and nonpressured. Mood/Affect: Mood is mildly improving, affect is congruent and constricted, mildly improving Suicidality/Homicidality: Patient denies having any suicidal or homicidal ideation intent or plan. Perceptions: Patient denies any visual hallucinations and denies any auditory hallucinations Though content/process: There is no evidence of any delusional thought content and thought process is linear and goal-directed. Memory and concentration: AOX3, grossly intact for the purposes of this session Judgment and insight: poor, mildly improving Assessment: major depressive disorder, without psychotic features anxiety disorder homelessness Plan: -Patient continues to meet criteria for inpatient psychiatric admission for symptom stabilization and safety. Patient has signed adult voluntary form and medication consent and was placed in patient's chart. -Medications: Effexor 225mg daily for mood/anxiety, abilify 5mg daily, for mood stabilization/adjunct -When necessary Ativan and Haldol for agitation/aggression. -NRT -nicotine patch -SW on board for discharge planning. Encouraged the patient to participate in milieu. Likely discharge Monday or if patient continues to improve. Will continue to look into available shelters.
[2023-10-30] MEDS: MAGNESIUM HYDROXIDE 2,400 MG/30 ML CUP PO PRN (16:42)
--- NOTE | 2023-10-31 09:21 | P.PN ---
Progress Note - Text Progress Note Date: 10/31/23 Interval History: Patient was seen in her room and was directable and agreeable to speak with wr iter in the office. Patient reports that her mood is pretty good today. Eye contact improving. Patient has been more visible on the unit. Patient complains of fungus under her great toenail on her left foot. Automat Car Attendant examined the toe, and will prescribe an anti fungal medication for this. Patient agreeable. Patient stated that she slept well last night. Patient states she is eating good. Patient still have not attended any groups, but has been out of her room more. Automat Car Attendant spoke with patient about discharge, patient is worried about where she will go, since she is homeless. At this time patient denies any suicidal or homicidal ideations, intent or plan. Patient offered no other complaints. Patient denies any auditory, visual hallucinations and denies any paranoia or delusions. Patient denies any side effects from the medications and has been compliant with meds. Mental Status Exam: General Appearance: Patient appears to be stated age is alert, directable, and cooperative. Has shoulder length pineda hair, wearing casual clothing. Behavior: Patient is calmly seated without any agitated behavior. mildly improivng Speech: Patient's speech is fluent and nonpressured. Mood/Affect: Mood is mildly improving, affect is congruent and constricted, mildly improving Suicidality/Homicidality: Patient denies having any suicidal or homicidal ideation intent or plan. Perceptions: Patient denies any visual hallucinations and denies any auditory hallucinations Though content/process: There is no evidence of any delusional thought content and thought process is linear and goal-directed. concrete. Memory and concentration: AOX3, grossly intact for the purposes of this session Judgment and insight: mildly improving Assessment: major depressive disorder, without psychotic features anxiety disorder homelessness Plan: -Patient continues to meet criteria for inpatient psychiatric admission for symptom stabilization and safety. Patient has signed adult voluntary form and medication consent and was placed in patient's chart. -Medications: Effexor 225mg daily for mood/anxiety, abilify PO 5 mg daily, for mood stabilization/adjunct Will start patient on terbenafine for Onychomycosis 250mg daily for 12 weeks -When necessary Ativan and Haldol for agitation/aggression -NRT -nicotine patch -SW on board for discharge planning. Encouraged the patient to participate in milieu. Likely discharge tomorrow. Will continue to look into available shelters.
[2023-10-31] MEDS: TERBINAFINE 250 MG TAB PO SCH (09:49)
[2023-11-01 08:34] VITALS: BP 93/68; PULSE 99; RESP 16
--- NOTE | 2023-11-01 10:51 | P.DS ---
Providers Date of admission: 10/21/23 16:01 Expected date of discharge: 11/01/23 Attending physician: Avel Sawant MD Consults: 10/21/23 16:02 Consult Physician Routine Consulting Provider: Kar Martínez Consult Reason/Comments: history and physical Do you want consulting provider notified?: Yes Primary care physician: Kar Martínez - Discharge Diagnosis(es) (1) Major depressive disorder without psychotic features Current Visit: Yes Status: Acute Priority: High (2) Anxiety disorder Current Visit: Yes Status: Acute Priority: Medium (3) Homelessness Current Visit: Yes Status: Acute Priority: Medium Hospital Course: Admission HPI: Admission note was completed by Dr Kang "This is a psychiatric assessment on this 58-year-old female who was hospitalized after patient was brought in because of increasing depression and vague suicidal ideations Patient states that she has become homeless for about a week and has been living in her car She said that she had some arguments with her sister with whom she was living before and that she was kicked out of the house Patient did not elaborate but when asked if she had any relationship issues she shook her head in an affirmative She did not elaborate for any further. The ER report also gives some further information as patient is not very forthcoming. has a past medical history significant for depression. Patient states she was on medication and a couple months ago she was feeling so good she decided to s top it. Patient states over the last couple of weeks she has become more more depressed and think she needs to get back on her medications. Patient states she did not follow-up with [facility]. Patient never told [facility] she stopped her medication. Patient denies any suicidal or self harmful thoughts. Patient states she is just very depressed. Patient states there is no inciting reason for her depression to be worse at this time. Patient denies any physical complaints. Patient denies any drinking or drug use." Hospital course: Upon admission to the unit patient was directable and agreeable to commence treatment and signed adult voluntary form. Patient got along well with other patients on the unit and followed unit protocol. Patient was compliant with the medications and denied any side effects throughout hospital course. Patient was started on Effexor XR 225 mg daily for mood/anxiety, Abilify p.o. 5 mg daily for mood adjunct/stabilization, she was treated for onychomycosis with terbinafine started 250 mg daily for 90 days. Patient spoke of her stressors and engaged in therapy both group and individual. Patient was also seen by medical team for history and physical exam. Throughout the course of the hospitalization patient gradually improved with regards to mood, anxiety, suicidal thoughts, sleep and returned back to their baseline level of functioning. On the day of discharge patient denied any suicidal or homicidal ideations intent or plan denied any auditory or visual hallucinations. Patient endorsed wanting to live for her health and her future. The patient denied any access to guns or weapons. Patient denied any paranoia and did not endorse any delusions. Patient does not have a significant history of substance abuse and was counseled on abstaining from all substances including alcohol and marijuana. Patient was also counseled on the medications and need for regular compliance and was encouraged to follow-up with their outpatient appointment for mental health and also for primary care. Prior to discharge a family meeting will be arranged by social welfare research worker to answer any questions and ensure safety upon discharge. Patient is being given resources and phone numbers for the different shelters, she claims that she would like to be discharged back to her car first. Mental status exam: General Appearance: Patient appears to be wearing glasses, stated age is alert, pleasant, and cooperative. Patient is in no acute distress and has improved hygiene and grooming Behavior: Patient is calmly seated without any agitated behavior. Speech: Patient's speech is fluent and nonpressured. Mood/Affect: Patient reports their mood is "good", affect is congruent Suicidality/Homicidality: Patient denies having any suicidal or homicidal ideation intent or plan. Perceptions: Patient denies any auditory or visual hallucinations. Though content/process: There is no evidence of any delusional thought content and thought process is linear and goal-directed. More future oriented Memory and concentration: AOX3, grossly intact for the purposes of this session. Can spell "WORLD" backwards correctly. Judgment and insight: improved with guarded prognosis Impression: major depressive disorder, without psychotic features anxiety disorder homelessness Plan: -Continue with discharge today as patient has improved and stabilized psychiatrically and is not currently an imminent threat to herself and/or others. Patient will remain at chronically elevated risk for harm to self and/or others due to her chronic mental illness. -Continue medications: Effexor 225 mg daily for mood/anxiety, Abilify p.o. 5 mg daily for mood adjunct/stabilization, continue with terbinafine for onychomycosis 250 mg daily for 12 weeks -Patient was counseled on the need for medication compliance and appropriate follow-up at mental health and also primary care for medical issues. Patient verbalized understanding and agreed. -Social work to arrange for and conduct family meeting to ensure safety upon discharge and answer any questions/concerns. Social work also to arrange for patients follow up appointments with [facility] for psychiatric care along with follow up with primary care provider. -Patient counseled on abstaining from recreational drugs and marijuana and alcohol. Was informed/educated on the adverse effects on their physical and mental health. Patient verbally agreed and understood. -Patient was instructed to return to the hospital or seek immediate medical care if their psychiatric or medical symptoms do worsen or reoccur. Allergies Allergy/AdvReac Type Severity Reaction Status Date / Time Sulfa (Sulfonamide Allergy Unknown Verified 10/21/23 17:21 Antibiotics) wheat Allergy Unknown Verified 10/21/23 17:21 Laboratory Results WBC 4.3 k/uL (3.8-10.6) 10/22/23 08:56 RBC 4.43 m/uL (3.80-5.40) 10/22/23 08:56 Hgb 13.9 gm/dL (11.4-16.0) 10/22/23 08:56 Hct 39.8 % (34.0-46.0) 10/22/23 08:56 MCV 89.9 fL (80.0-100.0) 10/22/23 08:56 MCH 31.3 pg (25.0-35.0) 10/22/23 08:56 MCHC 34.8 g/dL (31.0-37.0) 10/22/23 08:56 RDW 14.1 % (11.5-15.5) 10/22/23 08:56 Plt Count 234 k/uL (150-450) 10/22/23 08:56 MPV 9.9 10/22/23 08:56 Neutrophils % 49 % 10/22/23 08:56 Lymphocytes % 38 % 10/22/23 08:56 Monocytes % 7 % 10/22/23 08:56 Eosinophils % 2 % 10/22/23 08:56 Basophils % 1 % 10/22/23 08:56 Neutrophils # 2.1 k/uL (1.3-7.7) 10/22/23 08:56 Lymphocytes # 1.7 k/uL (1.0-4.8) 10/22/23 08:56 Monocytes # 0.3 k/uL (0-1.0) 10/22/23 08:56 Eosinophils # 0.1 k/uL (0-0.7) 10/22/23 08:56 Basophils # 0.0 k/uL (0-0.2) 10/22/23 08:56 Poikilocytosis Slight 10/22/23 08:56 Sodium 141 mmol/L (137-145) 10/22/23 08:56 Potassium 4.1 mmol/L (3.5-5.1) 10/22/23 08:56 Chloride 107 mmol/L (98-107) 10/22/23 08:56 Carbon Dioxide 23 mmol/L (22-30) 10/22/23 08:56 Anion Gap 11 mmol/L 10/22/23 08:56 BUN 16 mg/dL (7-17) 10/22/23 08:56 Creatinine 0.60 mg/dL (0.52-1.04) 10/22/23 08:56 Est GFR (CKD-EPI)AfAm >90 (>60 ml/min/1.73 sqM) 10/22/23 08:56 Est GFR (CKD-EPI)NonAf >90 (>60 ml/min/1.73 sqM) 10/22/23 08:56 Glucose 57 mg/dL (74-99) L 10/22/23 08:[address] Glu mg/dL 108 mg/dL 10/22/23 08:56 Hemoglobin A1c 5.4 % (<=6.0) 10/22/23 08:56 Calcium 9.3 mg/dL (8.4-10.2) 10/22/23 08:56 Total Bilirubin 0.9 mg/dL (0.2-1.3) 10/22/23 08:56 AST 24 U/L (14-36) 10/22/23 08:56 ALT 30 U/L (4-34) 10/22/23 08:56 Alkaline Phosphatase 59 U/L (38-126) 10/22/23 08:56 Total Protein 6.0 g/dL (6.3-8.2) L 10/22/23 08:56 Albumin 4.1 g/dL (3.5-5.0) 10/22/23 08:56 Triglycerides 118.00 mg/dL (0.00-149.00) 10/22/23 08:56 Cholesterol 183.00 mg/dL (0.00-200.00) 10/22/23 08:56 LDL Cholesterol, Calc 108.5 mg/dL (0.0-131.0) 10/22/23 08:56 VLDL Cholesterol, Calc 23.60 mg/dL (5.00-40.00) 10/22/23 08:56 HDL Cholesterol 50.90 mg/dL (40.00-60.00) 10/22/23 08:56 Cholesterol/HDL Ratio 3.60 Ratio 10/22/23 08:56 TSH 0.408 mIU/L (0.465-4.680) L 10/22/23 08:56 Free T4 1.32 ng/dL (0.80-1.80) 10/22/23 08:56 Free T3 pg/mL 1.50 pg/mL (2.30-4.20) L 10/22/23 08:56 Urine Color Yellow 10/22/23 18:52 Urine Appearance Clear (Clear) 10/22/23 18:52 Urine pH 5.5 (5.0-8.0) 10/22/23 18:52 Ur Specific [place] 1.034 (1.001-1.035) 10/22/23 18:52 Urine Protein 1+ (Negative) H 10/22/23 18:52 Urine Glucose (UA) Negative (Negative) 10/22/23 18:52 Urine Ketones 4+ (Negative) H 10/22/23 18:52 Urine Blood Negative (Negative) 10/22/23 18:52 Urine Nitrite Negative (Negative) 10/22/23 18:52 Urine Bilirubin 1+ (Negative) H 10/22/23 18:52 Urine Urobilinogen 3.0 mg/dL (<2.0) 10/22/23 18:52 Ur Leukocyte Esterase Small (Negative) H 10/22/23 18:52 Urine RBC 1 /hpf (0-5) 10/22/23 18:52 Urine WBC 7 /hpf (0-5) H 10/22/23 18:52 Ur Squamous Epith Cells 4 /hpf (0-4) 10/22/23 18:52 Urine Mucus Few /hpf (None) H 10/22/23 18:52 Urine HCG, Qual Not Detected (Not Detectd) 10/22/23 18:52 Urine Opiates Screen Not Detected (NotDetected) 10/21/23 13:02 Ur Oxycodone Screen Not Detected (NotDetected) 10/21/23 13:02 Urine Methadone Screen Not Detected (NotDetected) 10/21/23 13:02 Ur Barbiturates Screen Not Detected (NotDetected) 10/21/23 13:02 U Tricyclic Antidepress Not Detected (NotDetected) 10/21/23 13:02 Ur Phencyclidine Scrn Not Detected (NotDetected) 10/21/23 13:02 Ur Amphetamines Screen Not Detected (NotDetected) 10/21/23 13:02 U Methamphetamines Scrn Not Detected (NotDetected) 10/21/23 13:02 U Benzodiazepines Scrn Not Detected (NotDetected) 10/21/23 13:02 Urine Cocaine Screen Not Detected (NotDetected) 10/21/23 13:02 U Marijuana (THC) Screen Not Detected (NotDetected) 10/21/23 13:02 SARS-CoV-2 (PCR) Not Detected (Not Detectd) 10/21/23 14:46 Vital Signs Temp 97.7 F 10/31/23 06:39 Pulse 99 11/01/23 08:33 Resp 16 11/01/23 08:33 BP 93/68 11/01/23 08:33 Pulse Ox 95 10/28/23 06:00 FiO2 Patient Condition at Discharge: Stable Plan - Discharge Summary New Discharge Prescriptions: New Venlafaxine HCl [Effexor XR] 225 mg PO DAILY 30 Days #30 tab ARIPiprazole [Abilify] 5 mg PO DAILY 30 Days #30 tab Terbinafine [LamISIL] 250 mg PO DAILY 30 Days #30 tab Discharge Medication List Venlafaxine HCl [Effexor XR] 225 mg PO DAILY 30 Days #30 tab 10/27/23 [Rx] ARIPiprazole [Abilify] 5 mg PO DAILY 30 Days #30 tab 11/01/23 [Rx] Terbinafine [LamISIL] 250 mg PO DAILY 30 Days #30 tab 11/01/23 [Rx] Follow up Appointment(s)/Referral(s): [facility] [Outside] - 11/06/23 11:00 am Kar Martínez MD [Primary Care Provider] - 1-2 days Patient Instructions/Handouts: Depression (GEN), Generalized Anxiety Disorder (GEN) Activity/Diet/Wound Care/Special Instructions: Avoid the use of street drugs and alcohol. Take all medications as prescribed. When you are in need of refills on your medications, please contact your medical provider and/or outpatient psychiatrist/provider to have this done. Please go to your scheduled outpatient appointment for aftercare treatment. If symptoms return or become worse, call the crisis line at and/or go to the nearest emergency room for evaluation. National Suicide Hotline 203 Discharge Disposition: OTHER INSTITUTION NOT DEFINED
== END 2023-11-01 12:45 | disposition home or self-care (01) | DRG 754 ==
LOC: EC 10:20 → 3MHU 16:01
PROVIDERS: ADMIT Psychiatry & Neurology Psychiatry; ATTEND Psychiatry & Neurology Psychiatry
DX: F32.9 Major depressive disorder, single episode, unspecified (principal); B35.1 Tinea unguium; R45.851 Suicidal ideations; Z59.02 Unsheltered homelessness; Z79.899 Other long term (current) drug therapy; Z90.710 Acquired absence of both cervix and uterus; Z11.52 Encounter for screening for COVID-19
CPT/HCPCS: 80053; 80061; 80306; 81001; 81025; 82075; 83036; 84439; 84443; 84481; 85025; 87635; 99285

== ENCOUNTER 2024-01-20 11:54 | Inpatient (IN) | payer MEDICAID, OTHER ==
--- NOTE | 2024-01-20 12:10 | ED ---
Psych HPI <Magalie Curry - Last Filed: 01/20/24 18:51> - General Source: patient, RN notes reviewed Mode of arrival: ambulatory Limitations: no limitations <Manuel Raymundo - Last Filed: 01/21/24 06:05> - General Chief Complaint: Psychiatric Symptoms Stated Complaint: Mental Health Time Seen by Provider: 01/20/24 12:07 - History of Present Illness Initial Comments: 58-year-old female presents emergency department with family for psychiatric evaluation. Patient reportedly is homeless, very depressed and has had thoughts of not living anymore. She does not have a plan currently to harm herself. Denies any alcohol or drug use. Denies any physical complaints she reportedly spent the night at [employer] in the [employer] sleeping. Family was contacted after this in which they are here currently. She states she supposed be on Effexor and other psychiatric medications that she does not remember the name of. (Manuel Raymundo) - Related Data Home Medications Medication Instructions Recorded Confirmed No Known Home Medications 01/20/24 01/20/24 Allergies Allergy/AdvReac Type Severity Reaction Status Date / Time Sulfa (Sulfonamide Allergy Unknown Verified 01/20/24 15:13 Antibiotics) wheat Allergy Unknown Verified 01/20/24 15:13 Review of Systems ROS Other: All systems not noted in ROS Statement are negative. <Magalie Curry - Last Filed: 01/20/24 18:51> ROS Other: All systems not noted in ROS Statement are negative. <Manuel Raymundo - Last Filed: 01/21/24 06:05> ROS Statement: Those systems with pertinent positive or pertinent negative responses have been documented in the HPI. Past Medical History Past Medical History: Thyroid Disorder Additional Past Medical History / Comment(s): ovarian cyst History of Any Multi-Drug Resistant Organisms: None Reported Past Surgical History: Section, Hysterectomy Past Anesthesia/Blood Transfusion Reactions: No Reported Reaction Past Psychological History: Anxiety, Depression, Schizophrenia Smoking Status: Former smoker Past Alcohol Use History: None Reported Past Drug Use History: None Reported <Manuel Raymundo - Last Filed: 01/21/24 06:05> General Exam Limitations: no limitations General appearance: alert, in no apparent distress Head exam: Present: atraumatic, normocephalic, normal inspection Eye exam: Present: normal appearance, PERRL, EOMI. Absent: scleral icterus, conjunctival injection, periorbital swelling ENT exam: Present: normal exam, normal oropharynx, mucous membranes moist Neck exam: Present: normal inspection, full ROM. Absent: tenderness, meningismus, lymphadenopathy Respiratory exam: Present: normal lung sounds bilaterally. Absent: respiratory distress, wheezes, rales, rhonchi, stridor Cardiovascular Exam: Present: regular rate, normal rhythm, normal heart sounds. Absent: systolic murmur, diastolic murmur, rubs, gallop, clicks Neurological exam: Present: alert Skin exam: Present: warm, dry, intact, normal color. Absent: rash <Manuel Raymundo - Last Filed: 01/21/24 06:05> Course Vital Signs 01/20/24 01/20/24 01/21/24 11:56 20:31 02:46 Temperature 98 F 97.7 F 97.8 F Pulse Rate 60 46 L 58 L Respiratory 20 18 17 Rate Blood Pressure 121/80 100/61 105/72 O2 Sat by Pulse 99 98 98 Oximetry Medical Decision Making <Magalie Curry - Last Filed: 01/20/24 18:51> <Manuel Raymundo - Last Filed: 01/21/24 06:05> - Medical Decision Making Patient seen by EPS, they determined patient requires admission. She signs herself in. Diagnosis/symptom? @Depression Acute, or Chronic, or Acute on Chronic? @Acute on chronic Uncomplicated (without systemic symptoms) or Complicated (systemic symptoms)? @Complicated Side effects of treatment? @None Exacerbation, Progression, or Severe Exacerbation] @No Poses a threat to life or bodily function? @Yes (Magalie Curry) Was pt. sent in by a medical professional or institution (, PA, MEETING MANAGER, urgent care, hospital, or detention...) When possible be specific @ -[No] Did you speak to anyone other than the patient for history (EMS, parent, family, police, friend...)? What history was obtained from this source @ -[No] Did you review nursing and triage notes (agree or disagree)? Why? @ -[I reviewed and agree with nursing and triage notes] Were old charts reviewed (outside hosp., previous admission, EMS record, old EKG, old radiological studies, urgent care reports/EKG's, detention records)? Report findings @ -[No old charts were reviewed] Differential Diagnosis (chest pain, altered mental status, abdominal pain women, abdominal pain men, vaginal bleeding, weakness, fever, dyspnea, syncope, headache, dizziness, GI bleed, back pain, seizure, CVA, palpatations, mental health, musculoskeletal)? @ -Differential Mental Health Depression, anxiety, bipolar, psychosis, schizophrenia, borderline personality, situational depression, adjustment disorder, behavioral disorder, brain tumor, malingering, substance abuse, encephalopathy, medication reaction, dementia, hypothyroidism, degenerative neurologic disorder, lupus.... This is not meant to be all-inclusive list EKG interpreted by me (3pts min.). @ -None X-rays interpreted by me (1pt min.). @ -[None done] CT interpreted by me (1pt min.). @ -[None done] U/S interpreted by me (1pt. min.). @ -[None done] What testing was considered but not performed or refused? (CT, X-rays, U/S, labs)? Why? @ -[None] What meds were considered but not given or refused? Why? @ -[None] Did you discuss the management of the patient with other professionals (professionals i.e. , PA, MEETING MANAGER, lab, RT, psych nurse, social insurance specialist, front end java developer, teacher, quality officer, special education case manager)? Give summary @ -EPS evaluated the patient Was smoking cessation discussed for >3mins.? @ -[No] Was critical care preformed (if so, how long)? @ -[No] Were there social determinants of health that impacted care today? How? (Homelessness, low income, unemployed, alcoholism, drug addiction, transportation, low edu. Level, literacy, decrease access to med. care, assisted, rehab)? @ -[No] Was there de-escalation of care discussed even if they declined (Discuss DNR or withdrawal of care, Hospice)? DNR status @ -[No] What co-morbidities impacted this encounter? (DM, HTN, Smoking, COPD, CAD, Canc er, CVA, ARF, Chemo, Hep., AIDS, mental health diagnosis, sleep apnea, morbid obesity)? @ -[None] Was patient admitted / discharged? Hospital course, mention meds given and route, prescriptions, significant lab abnormalities, going to OR and other pertinent info. (Manuel Raymundo) - Lab Data Lab Results 01/20/24 01/20/24 Range/Units 12:45 15:03 Urine Opiates Screen Not Detected (NotDetected) Ur Oxycodone Screen Not Detected (NotDetected) Urine Methadone Screen Not Detected (NotDetected) Ur Barbiturates Screen Not Detected (NotDetected) U Tricyclic Antidepress Not Detected (NotDetected) Ur Phencyclidine Scrn Not Detected (NotDetected) Ur Amphetamines Screen Not Detected (NotDetected) U Methamphetamines Scrn Not Detected (NotDetected) U Benzodiazepines Scrn Not Detected (NotDetected) Urine Cocaine Screen Not Detected (NotDetected) U Marijuana (THC) Screen Not Detected (NotDetected) SARS-CoV-2 (PCR) Not Detected (Not Detectd) Disposition Time of Disposition: 18:52 <Magalie Curry - Last Filed: 01/20/24 18:51> <Manuel Raymundo - Last Filed: 01/21/24 06:05> Clinical Impression: Major depressive disorder, severe, Homelessness Disposition: ADMITTED IP TO THIS HOSP Condition: Fair
[2024-01-20 13:31] LABS: Amphetamine Screen,Urine Not Detected (NotDetected); Barbiturate Screen,Urine Not Detected (NotDetected); Benzodiazepines Screen,Urine Not Detected (NotDetected); Cocaine Screen,Urine Not Detected (NotDetected); Methadone Screen, Urine Not Detected (NotDetected); Opiate Screen,Urine Not Detected (NotDetected); Oxycodone Screen, Urine Not Detected (NotDetected); Phencyclidine Screen,Urine Not Detected (NotDetected); Tricyclic Antidepressant,Urine Not Detected (NotDetected); Urn Cannabinoid Scrn Not Detected (NotDetected)
[2024-01-21] MEDS ORDERED: LORazepam 2 MG/ML INJ IM PRN (02:44)
[2024-01-21] MEDS ORDERED: MAG HYDROX/AL HYDROX/SIMETH 355 ML BOTTLE PO PRN (02:44)
[2024-01-21] MEDS ORDERED: traZODone HCL 50 MG TAB PO PRN (02:44)
[2024-01-21] MEDS ORDERED: ACETAMINOPHEN TAB 325 MG TAB PO PRN (02:44)
[2024-01-21] MEDS ORDERED: LORazepam 1 MG TAB PO PRN (02:44)
[2024-01-21] MEDS ORDERED: HALOPERIDOL LACTATE 5 MG/ML 1 ML VIAL IM PRN (02:44)
[2024-01-21] MEDS ORDERED: haloperidoL 5 MG TAB PO PRN (02:44)
[2024-01-21] MEDS: NICOTINE 14MG/24HR PATCH TRANSDERM SCH (08:33)
--- NOTE | 2024-01-21 09:50 | P.HP ---
Psychiatric H&P - . H&P Date: 01/21/24 History & Physical: Allergies Allergy/AdvReac Type Severity Reaction Status Date / Time Sulfa (Sulfonamide Allergy Unknown Verified 01/20/24 15:13 Antibiotics) wheat Allergy Unknown Verified 01/20/24 15:13 Vital Signs Temp 97.8 F 01/21/24 02:46 Pulse 58 L 01/21/24 02:46 Resp 17 01/21/24 02:46 BP 105/72 01/21/24 02:46 Pulse Ox 98 01/21/24 02:46 FiO2 Intake & Output 01/20/24 01/21/24 01/21/24 18:59 06:59 18:59 Weight 66.224 kg 67.1 kg Laboratory Last Values Urine Opiates Screen Not Detected (NotDetected) 01/20/24 12:45 Ur Oxycodone Screen Not Detected (NotDetected) 01/20/24 12:45 Urine Methadone Screen Not Detected (NotDetected) 01/20/24 12:45 Ur Barbiturates Screen Not Detected (NotDetected) 01/20/24 12:45 U Tricyclic Antidepress Not Detected (NotDetected) 01/20/24 12:45 Ur Phencyclidine Scrn Not Detected (NotDetected) 01/20/24 12:45 Ur Amphetamines Screen Not Detected (NotDetected) 01/20/24 12:45 U Methamphetamines Scrn Not Detected (NotDetected) 01/20/24 12:45 U Benzodiazepines Scrn Not Detected (NotDetected) 01/20/24 12:45 Urine Cocaine Screen Not Detected (NotDetected) 01/20/24 12:45 U Marijuana (THC) Screen Not Detected (NotDetected) 01/20/24 12:45 SARS-CoV-2 (PCR) Not Detected (Not Detectd) 01/20/24 15:03 01/21/24 09:40 58-year-old female presented on 01/19 to the emergency department with family for psychiatric evaluation. Patient reportedly is homeless, very depressed and has had thoughts of not living anymore. She does not have a plan currently to harm herself. Denies any alcohol or drug use. Denies any physical complaints she reportedly spent the night at [employer] police in the lobby sleeping. Family was contacted after this in which they are here currently. She states she supposed be on Effexor and other psychiatric medications that she does not remember the name of. Social history: The patient is a sixth of 6 children and she was for 15 years and then her's committed suicide and she has been dysfunctional and depressed since that time. She has 2 sons age 31 and 33 who do not live nearby. She has 3 granddaughters. She did not feel that her son's would want to be of any help to her at this time. She does have a sister who is trying to help her. She is a high school graduate. (She is well above average in intelligence but just never went on for more education she got and had 2 children. 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 past Medical History: Thyroid Disorder Additional Past Medical History / Comment(s): ovarian cyst History of Any Multi-Drug Resistant Organisms: None Reported Past Surgical History: Section, Hysterectomy Past Anesthesia/Blood Transfusion Reactions: No Reported Reaction Past Psychological History: Anxiety, Depression, Schizophrenia Smoking Status: Former smoker Past Alcohol Use History: None Reported Past Drug Use History: None Reported Mental status exam: Patient was sleeping in a dark room 10:00 in the morning but came readily. She moves slowly respond slowly and softly with no eye contact. She elected to stand through the entire interview which is something never seen a patient do before. She couldn't explain why she just felt more comfortable. She could remember 3 of 3 objects on immediate recall and 2-1/2 after 5 minutes she could only name the last 2 presidents but could name all the [place] and knew where they were.. To abstract cats and snakes she said they both hiss and then had to think for a whileand then said, "they eat rodents".she could spell world backward and subtract 7 from 93. She appears very slowed down but is of above average intelligence. No signs of psychosis Diagnosis major depression recurrent severe nonpsychotic. Assessment: When the patient takes her medicine she does okay when she stops she becomes depressed. However even on the medicine she found herself homeless and then lost her medicine and didn't have the motivation to follow through. Plan restart the Effexor 75 for 2 days 150 for 2 days then go up to the 225 mg which has worked for her in the past
[2024-01-21 12:30] LABS: Amorphous Sediment,Urine Occasional /hpf; Appearance,Urine Cloudy (Clear); Bacteria,Urine Occasional /hpf; Bilirubin,Urine Negative (Negative); Blood,Urine Negative (Negative); Color,Urine Light Yellow; Glucose,Urine (UA) Negative (Negative); Ketones,Urine Negative (Negative); Leukocyte Esterase,Urine Trace (Negative); Mucus,Urine Rare /hpf; Nitrite,Urine Negative (Negative); PH, Urine 7.5 (5.0-8.0); Protein,Urine Negative (Negative); Specific Gravity,Urine 1.013 (1.001-1.035); WBC,Urine 1 /hpf (0-5)
--- NOTE | 2024-01-21 21:03 | HP ---
HISTORY AND PHYSICAL CHIEF COMPLAINT: Major depression. HISTORY OF PRESENT ILLNESS: This lady was brought to the emergency room by her family for treatment of extreme depression and suicidal thoughts. REVIEW OF SYSTEMS: She denies headache, chest pain, abdominal pain, etc. Past medical history, family history, personal and social histories are apparently unremarkable. She is not taking any medications. PHYSICAL EXAMINATION: VITAL SIGNS: Normal. HEAD, EARS, EYES, NOSE, MOUTH AND THROAT: Normal. CHEST: Clear. CARDIAC: Normal. ABDOMEN: Soft, nontender. IMPRESSION: Major depression. RECOMMENDATIONS: Inpatient psychiatric management and medications as appropriate. MMODL / IJN: [id number] /
[2024-01-21] MEDS: VENLAFAXINE HCL ER 75 MG CAP PO SCH (21:04)
--- NOTE | 2024-01-22 11:22 | P.PN ---
Progress Note - Text Progress Note Date: 01/22/24 Interval History: Patient was seen laying in bed this morning and was directable and agreeable to speak with sports book writer. She claims that she has been homeless for most of the summer living in her car. Claims that she is not able to sustain a job. Claims that she is feeling depressed, endorsing anxiety came to the hospital for treatment. States that she has stopped her Effexor and Abilify for several months now. Is agreeable to get started back on them.she was fairly concrete, fairly introve rted on the unit keeping to herself. At this time patient denies any suicidal or homical ideations, intent or plan. Patient denies any auditory, visual hallucinations and denies any paranoia or delusions. Patient denies any side effects from the medications and has been compliant with meds. Mental Status Exam: General Appearance: Patient appears to be mildly disheveled, wearing glasses, stated age is alert, directable, and attempts to be cooperative. Behavior: Patient is calmly seated without any agitated behavior. Attempts to cooperate. Speech: Patient's speech is fluent and nonpressured. [place] Mood/Affect: Mood is "depressed", affect is congruent and constricted. Suicidality/Homicidality: Patient denies having any suicidal or homicidal ideation intent or plan. Perceptions: Patient denies any visual hallucinations and denies any auditory hallucinations Though content/process: [place], poverty of content Memory and concentration: AOX3, grossly intact for the purposes of this session Judgment and insight: Poor, improving mildly Assessment major depressive disorder, without psychotic features anxiety disorder homelessness Plan: -Patient continues to meet criteria for inpatient psychiatric admission for symptom stabilization and safety. Patient has signed adult voluntary form and and was placed in patient's chart. -Medications: Effexor 75 mg daily for mood/anxiety, Abilify 5 mg daily for mood adjunct/stabilization, trazodone 50 mg nightly for sleep/mood. will restart terbenafine for onychomycosis. -When necessary Ativan and Haldol for agitation/aggression. -NRT - not needed as patient does not smoke -SW on board for discharge planning. Encouraged the patient to participate in milieu. she is homeless.
[2024-01-22] MEDS: ARIPiprazole 5 MG TAB PO SCH (17:51)
[2024-01-22] MEDS: TERBINAFINE 250 MG TAB PO SCH (17:51)
[2024-01-22] MEDS: traZODone HCL 50 MG TAB PO SCH (20:31)
[2024-01-23] MEDS: VENLAFAXINE HCL ER 150 MG CAP PO SCH (11:51)
--- NOTE | 2024-01-23 12:06 | P.PN ---
Progress Note - Text Progress Note Date: 01/23/24 Interval History: Patient was seen laying in bed this morning and was directable and agreeable to speak with chart writer. She claims that she is feeling a bit better today, now that she got some food in her stomach. She has been homeless for several months. Introverted on the unit keeping to herself. claims that she is feeling a bit paranoid today. She is hesitant at times, and has poor eye contact. She states she slept ok last night, and her appetite is good. She is endorsing depression, and states she has no anxiety. At this time patient denies any suicidal or homicidal ideations, intent or plan. Patient denies any auditory, visual hallucinations and denies any paranoia or delusions. Patient denies any side effects from the medications and has been compliant with meds. Mental Status Exam: General Appearance: Patient appears to be mildly disheveled, wearing glasses, stated age is alert, directable, and attempts to be cooperative. Behavior: Patient is calmly seated without any agitated behavior. Attempts to cooperate. Poor eye contact Speech: Patient's speech is fluent and nonpressured. [place] Mood/Affect: Mood is "depressed", affect is congruent and constricted. Suicidality/Homicidality: Patient denies having any suicidal or homicidal ideation intent or plan. Perceptions: Patient denies any visual hallucinations and denies any auditory hallucinations Though content/process: [place], poverty of content Memory and concentration: AOX3, grossly intact for the purposes of this session Judgment and insight: Poor, improving mildly Assessment major depressive disorder, without psychotic features anxiety disorder homelessness Plan: -Patient continues to meet criteria for inpatient psychiatric admission for symptom stabilization and safety. Patient has signed adult voluntary form and and was placed in patient's chart. -Medications: increase Effexor 150 mg daily for mood/anxiety, increase Abilify 7.5 mg daily for mood adjunct/stabilization, trazodone 50 mg nightly for sleep/mood. terbenafine for onychomycosis. -When necessary Ativan and Haldol for agitation/aggression. -NRT - not needed as patient does not smoke -SW on board for discharge planning. Encouraged the patient to participate in milieu. she is homeless.
[2024-01-23] MEDS ORDERED: traZODone HCL 100 MG TAB PO SCH (21:00)
[2024-01-23] MEDS: traZODone HCL 50 MG TAB PO SCH (21:28)
[2024-01-24] MEDS: ARIPiprazole 5 MG TAB PO SCH (09:43)
--- NOTE | 2024-01-24 09:49 | P.PN ---
Progress Note - Text Progress Note Date: 01/24/24 Interval History: Patient was seen laying in bed this morning and was directable and agreeable to speak with typewriter repairer. She was sleeping, and easily awoken. She states that she thinks she is just exhausted. She claims to have slept well at night, she is just catching up on sleep. She states her depression is improving some, and she is not endorsing anxiety at this time. Her eye contact is poor, and she is soft spoken. paranoia improving mildly. She states that she slept through breakfast today, but yesterday, she ate all meals. At this time patient denies any suicidal or homicidal ideations, intent or plan. Patient denies any auditory, visual hallucinations and denies any paranoia or delusions. Patient denies any side effects from the medications and has been compliant with meds. Mental Status Exam: General Appearance: Patient appears to be mildly disheveled, wearing glasses, stated age is alert, directable, and attempts to be cooperative. Behavior: Patient is calmly seated without any agitated behavior. Attempts to cooperate. Poor eye contact Speech: Patient's speech is fluent and nonpressured. [place] Mood/Affect: Mood is "improving", affect is congruent and constricted. improving mildly Suicidality/Homicidality: Patient denies having any suicidal or homicidal ideation intent or plan. Perceptions: Patient denies any visual hallucinations and denies any auditory hallucinations Though content/process: [place], poverty of content Memory and concentration: AOX3, grossly intact for the purposes of this session Judgment and insight: Poor, improving mildly Assessment: major depressive disorder, without psychotic features anxiety disorder homelessness Plan: -Patient continues to meet criteria for inpatient psychiatric admission for symptom stabilization and safety. Patient has signed adult voluntary form and and was placed in patient's chart. -Medications: Effexor 150 mg daily for mood/anxiety, Abilify 7.5 mg daily for mood adjunct/stabilization, trazodone 50 mg nightly for sleep/mood. terbenafine for onychomycosis. -When necessary Ativan and Haldol for agitation/aggression. -NRT - not needed as patient does not smoke -SW on board for discharge planning. Encouraged the patient to participate in milieu. she is homeless. consider discharge monday if patient is improving.
--- NOTE | 2024-01-25 13:31 | P.PN ---
Progress Note - Text Progress Note Date: 01/25/24 Interval History: Patient was seen in the interview room via HIPAA-compliant Zoom (pt consented). Patient says she is feeling better today and less tired. She reports sleeping well. She says mood is "really depressed lately." She denies having family support and is concerned about her state of homelessness. She reports low appetite and has had weight loss due to this over the past few months. At this time patient denies any suicidal or homicidal ideation, intent or plan. Patient denies any auditory, visual hallucinations and denies any paranoia or delusions. Patient denies any side effects from the medications and has been compliant with meds. Vital Signs Temp 98.5 F 01/23/24 09:20 Pulse 72 01/25/24 10:10 Resp 14 01/24/24 09:40 BP 95/66 01/25/24 10:10 Pulse Ox 96 01/24/24 09:40 FiO2 Mental Status Exam: General Appearance: Patient appears to be mildly disheveled, wearing glasses, stated age is alert, directable, and attempts to be cooperative. Behavior: Patient is calmly seated without any agitated behavior. Attempts to cooperate. Poor eye contact Speech: Patient's speech is fluent and nonpressured. [employer] Mood/Affect: Mood is depressed, affect is congruent and constricted. improving mildly Suicidality/Homicidality: Patient denies having any suicidal or homicidal ideation intent or plan. Perceptions: Patient denies any visual hallucinations and denies any auditory hallucinations Though content/process: [employer], poverty of content Memory and concentration: AOX3, grossly intact for the purposes of this session Judgment and insight: Poor, improving mildly Assessment: major depressive disorder, without psychotic features anxiety disorder homelessness Plan: -Patient continues to meet criteria for inpatient psychiatric admission for symptom stabilization and safety. Patient has signed adult voluntary form and and was placed in patient's chart. -Medications: Effexor 150 mg daily for mood/anxiety, Abilify 7.5 mg daily for mood adjunct/stabilization, trazodone 50 mg nightly for sleep/mood. Add Remeron 15 mg for mood, sleep, and appetite. terbenafine for onychomycosis. - Dietary consult- patient had ~20lb weight loss in the past 3 mo & current hypotension (improving). Encouraging fluids -When necessary Ativan and Haldol for agitation/aggression. -NRT - not needed as patient does not smoke -SW on board for discharge planning. Encouraged the patient to participate in milieu. she is homeless. consider discharge Monday if patient is improving.
--- NOTE | 2024-01-26 13:39 | P.PN ---
Progress Note - Text Progress Note Date: 01/26/24 Interval History: Patient was seen laying in bed this morning with the lights off. She is agreeable to speak with technical document writer, however is guarded with brief responses. She appears withdrawn and isolates to her room most of the day. She is up for meals but eats only a portion of her meals. She reports depressed mood, increased sleep, anhedonia, low energy, fair appetite, and psychomotor slowing. Her depression is improving some, but still feels depressed. Her eye contact is mini mal, soft spoken, guarded. She does not make any overtly paranoid statements to me today, but appears guarded regarding her paranoid thoughts. At this time patient denies any suicidal or homicidal ideation, intent or plan. Patient denies any auditory, visual hallucinations. She is guarded about her paranoid delusions. Patient denies any side effects from the medications and has been compliant with meds. Mental Status Exam: General Appearance: Patient appears to be tanned (outside in sun due to homelessness), mildly disheveled, normal weight, adult female. Behavior: Withdrawn, isolates to her bed most of the day, guarded, minimal eye contact Speech: Patient's speech is soft, fluent and non-pressured. Mood/Affect: Mood is "depressed", affect is depressed and constricted. improving mildly Suicidality/Homicidality: Patient denies having any suicidal or homicidal ideation intent or plan. Perceptions: Patient denies any visual hallucinations and denies any auditory hallucinations. Though content/process: [place], poverty of content. There is concern for continued fixed false paranoid delusions, however patient is guarded and does not express these delusional thoughts to me today. Memory and concentration: AOX3, grossly intact for the purposes of this session Judgment and insight: Poor, improving mildly Assessment: Major depressive disorder, without psychotic features r/o Delusional disorder Unspecified anxiety disorder Homelessness Plan: -Patient continues to meet criteria for inpatient psychiatric admission for symptom stabilization and safety. Patient has signed adult voluntary form and and was placed in patient's chart. -Medications: Increase Abilify to 10 mg daily starting today for psychosis/mood stabilization. (An additional Abilify 2.5 mg x 1 ordered for this afternoon to make today's dose equal to 10 mg). Increase Effexor XR from 150 mg daily to 225 mg daily starting tomorrow morning for depression/anxiety. Continue Trazodone 50 mg nightly for sleep. -When necessary Ativan and Haldol for agitation/aggression. -NRT - not needed as patient does not smoke -SW on board for discharge planning. Encouraged the patient to participate in milieu. She is homeless.
[2024-01-26 14:02] VITALS: BMI 24.7
[2024-01-26] MEDS: ARIPiprazole 5 MG TAB PO SCH (15:59)
--- NOTE | 2024-01-27 01:13 | PN ---
PROGRESS NOTE DATE OF SERVICE: 01/24/2024 CHIEF COMPLAINT: Major depression. HISTORY OF PRESENT ILLNESS: This lady is apparently doing fairly well, but she is extremely depressed. REVIEW OF SYSTEMS: She denies headaches or chest pain. PHYSICAL EXAMINATION: CHEST: Clear. CARDIAC: Normal. IMPRESSION: Major depression. PLAN: No change in her program at this time. MMODL / IJN: [id number] /
[2024-01-27] MEDS: ARIPiprazole 10 MG TAB PO SCH (08:23)
[2024-01-27] MEDS: VENLAFAXINE HCL ER 75 MG CAP PO SCH (08:23)
--- NOTE | 2024-01-27 11:35 | P.PN ---
Progress Note - Text Progress Note Date: 01/27/24 Interval History: Patient was seen Bedside this morning and was directable and cooperative to speak with this caption writer. She says that she has been feeling "little better "with the increase in medication. However, she reports feeling more tired during the daytime with trazodone and was agreeable with Remeron. She states her appetite continues to be low but she is trying to eat more "so that I can feel better ". She endorses improved energy. She plans to speak with family today over the phone. She denies any concerns medication and denies lightheadedness or dizziness. Encouraged to be cautious with rising from bed due to recent hypotension which has been improving. She denies any anxiety or stress. Not expressing any paranoia today. At this time patient denies any suicidal or homicidal ideation, intent or plan. Patient denies any auditory, visual hallucinations. Patient denies any side effects from the medications and has been compliant with meds. Mental Status Exam: General Appearance: Patient appears to be tanned (outside in sun due to homelessness), mildly disheveled, normal weight, adult female. Behavior: Withdrawn, isolates to her bed most of the day, fair eye contact Speech: Patient's speech is soft, fluent and non-pressured. Mood/Affect: Mood is "little better", affect is depressed and constricted. improving mildly Suicidality/Homicidality: Patient denies having any suicidal or homicidal ideation intent or plan. Perceptions: Patient denies any visual hallucinations and denies any auditory hallucinations. Though content/process: [place], poverty of content. Hx fixed false paranoid delusions, however patient not expressing these delusional thoughts to me today. Memory and concentration: AOX3, grossly intact for the purposes of this session Judgment and insight: Poor, improving mildly Assessment: Major depressive disorder, without psychotic features r/o Delusional disorder Unspecified anxiety disorder Homelessness Plan: -Patient continues to meet criteria for inpatient psychiatric admission for symptom stabilization and safety. Patient has signed adult voluntary form and and was placed in patient's chart. -Medications: Abilify 10 mg daily starting today for psychosis/mood stabilization Effexor XR 225 mg daily for depression/anxiety. Stop Trazodone 50 mg nightly for sleep. Remeron 15 mg qHS for sleep, mood, and appetite -When necessary Ativan and Haldol for agitation/aggression. -NRT - not needed as patient does not smoke -SW on board for discharge planning. Encouraged the patient to participate in milieu. She is homeless.
[2024-01-27] MEDS: MIRTAZAPINE 15 MG TAB PO SCH (21:29)
--- NOTE | 2024-01-28 12:54 | P.PN ---
Progress Note - Text Progress Note Date: 01/28/24 Interval History: Patient was seen bedside this morning and was directable and cooperative to speak with this global technical writer. She says that her mood is "down ". She reports feeling hopeless about her situation and is worried about her state of homelessness. Discussed that complex case manager is attempting to help her with finding a usp. Patient states that she also spoke with her son, who lives in [place], over the phone. She said that this was helpful. Patient endorses good sleep. She denies concerns of the medication and says that Remeron has been more helpful. She endorses good appetite. She appears to be isolating to room. She denies any anxiety or stress. Not expressing any paranoia today. At this time patient denies any suicidal or homicidal ideation, intent or plan. Patient denies any auditory, visual hallucinations. Patient denies any side effects from the medications and has been compliant with meds. Mental Status Exam: General Appearance: Patient appears to be tanned (outside in sun due to homelessness), mildly disheveled, normal weight, adult female. Behavior: Withdrawn, isolates to her bed most of the day, poor eye contact, downcast eyes Speech: Patient's speech is soft, fluent and non-pressured. Mood/Affect: Mood is "down", affect is depressed and constricted. improving mildly Suicidality/Homicidality: Patient denies having any suicidal or homicidal ideation intent or plan. Perceptions: Patient denies any visual hallucinations and denies any auditory hallucinations. Though content/process: [place], poverty of content. Hx fixed false paranoid delusions, however patient not expressing these delusional thoughts to me today. Memory and concentration: AOX3, grossly intact for the purposes of this session Judgment and insight: Poor, improving mildly Assessment: Major depressive disorder, without psychotic features r/o Delusional disorder Unspecified anxiety disorder Homelessness Plan: -Patient continues to meet criteria for inpatient psychiatric admission for symptom stabilization and safety. Patient has signed adult voluntary form and and was placed in patient's chart. -Medications: Abilify 10 mg daily starting today for psychosis/mood stabilization Effexor XR 225 mg daily for depression/anxiety. Remeron 15 mg qHS for sleep, mood, and appetite -When necessary Ativan and Haldol for agitation/aggression. -NRT - not needed as patient does not smoke -SW on board for discharge planning. Encouraged the patient to participate in milieu. She is homeless.
--- NOTE | 2024-01-29 11:25 | P.PN ---
Progress Note - Text Progress Note Date: 01/29/24 Interval History: Patient was seen bedside this morning and was directable and cooperative to debora christiansen with this radio script writer. She says that her mood is "better". She reports that she is feeling quite a bit better with the medications. She is not complaining of any anxiety at this time. She states she no longer has a vehicle to live in, that it got towed during her last admission, and she does not know where it got towed to. Payroll Master spoke to her about being discharged to a group home, patient agreeable. She endorses good appetite. She states she is sleeping good. She appears to be isolating to room. Not expressing any paranoia today. At this time patient denies any suicidal or homicidal ideation, intent or plan. Patient denies any auditory, visual hallucinations. Patient denies any side effects from the medications and has been compliant with meds. Mental Status Exam: General Appearance: Patient appears to be tanned (outside in sun due to homelessness), improving grooming and hygiene, normal weight, adult female. Behavior: Withdrawn, isolates to her bed most of the day, poor eye contact, downcast eyes Speech: Patient's speech is soft, fluent and non-pressured. Mood/Affect: Mood is "good", affect is depressed and constricted. improving mildly Suicidality/Homicidality: Patient denies having any suicidal or homicidal ideation intent or plan Perceptions: Patient denies any visual hallucinations and denies any auditory hallucinations Though content/process: [place], poverty of content. mildly improving Memory and concentration: AOX3, grossly intact for the purposes of this session Judgment and insight: Poor, improving mildly Assessment: Major depressive disorder, without psychotic features r/o Delusional disorder Unspecified anxiety disorder Homelessness Plan: -Patient continues to meet criteria for inpatient psychiatric admission for symptom stabilization and safety. Patient has signed adult voluntary form and and was placed in patient's chart. -Medications: Abilify 10 mg daily psychosis/mood stabilization, increase Effexor XR 300 mg daily for depression/anxiety, Remeron 15 mg qHS for sleep, mood, and appetite -When necessary Ativan and Haldol for agitation/aggression -NRT - not needed as patient does not smoke -SW on board for discharge planning. Encouraged the patient to participate in milieu. She is homeless. Likely discharge to group home tomorrow.
[2024-01-29] MEDS: VENLAFAXINE HCL ER 75 MG CAP PO STA (11:32)
[2024-01-29] MEDS: MAGNESIUM HYDROXIDE 2,400 MG/30 ML CUP PO PRN (20:17)
[2024-01-30 06:53] VITALS: BP 104/68; PULSE 54; RESP 14; TEMP 98.1
[2024-01-30] MEDS: VENLAFAXINE HCL ER 150 MG CAP PO SCH (08:31)
--- NOTE | 2024-01-30 10:55 | P.DS ---
Providers Date of admission: 01/21/24 02:26 Expected date of discharge: 01/30/24 Attending physician: Avel Sawant MD Consults: 01/21/24 11:07 Consult Physician Routine Consulting Provider: Kar Martínez Consult Reason/Comments: H & P w/medical management Do you want consulting provider notified?: Yes Primary care physician: Kar Martínez - Discharge Diagnosis(es) (1) Major depressive disorder without psychotic features Current Visit: No Status: Acute Priority: High (2) Anxiety disorder, unspecified Current Visit: Yes Status: Acute Priority: Medium (3) Homelessness Current Visit: Yes Status: Acute Priority: High Hospital Course: Admission HPI: Admission note was completed by Dr Whalen "58-year-old female presented on 01/19 to the emergency department with family for psychiatric evaluation. Patient reportedly is homeless, very depressed and has had thoughts of not living anymore. She does not have a plan currently to harm herself. Denies any alcohol or drug use. Denies any physical complaints she reportedly spent the night at [facility] in the [place] sleeping. Family was contacted after this in which they are here currently. She states she supposed be on Effexor and other psychiatric medications that she does not remember the name of." Hospital course: Upon admission to the unit patient was directable and agreeable to commence treatment and signed adult voluntary form. Patient was initially isolative, depressed however with time and treatment she eventually got along well with other patients on the unit and followed unit protocol. Patient was compliant with the medications and denied any side effects throughout hospital course. Keegan adam was started on Abilify and increased to dose of 10 mg daily for psychosis/mood stabilization/adjunct, Effexor XR increased to dose of 300 mg daily for mood/anxiety, Remeron 15 mg nightly for sleep/mood/appetite.. Patient spoke of her stressors and engaged in therapy both group and individual. Patient was also seen by medical team for history and physical exam. Throughout the course of the hospitalization patient gradually improved with regards to mood, anxiety, sleep and returned back to their baseline level of functioning. On the day of discharge patient denied any suicidal or homicidal ideations intent or plan denied any auditory or visual hallucinations. Patient endorsed wanting to live for her health and her kids. The patient denied any access to guns or weapons. Patient denied any paranoia and did not endorse any delusions. Patient does not have a significant history of substance abuse and was counseled on abstaining from all substances including alcohol and marijuana. Patient was also counseled on the medications and need for regular compliance and was encouraged to follow-up with their outpatient appointment for mental health and also for primary care. Prior to discharge a family meeting will be arranged by psychologist social to answer any questions and ensure safety upon discharge. Patient will be discharged to her sister's house today with [facility] follow-up. Mental status exam: General Appearance: Patient appears to be stated age is alert, pleasant, and cooperative. Patient is in no acute distress and has improved hygiene and grooming Behavior: Patient is calmly seated without any agitated behavior. Speech: Patient's speech is fluent and nonpressured. Mood/Affect: Patient reports their mood is "better", affect is congruent Suicidality/Homicidality: Patient denies having any suicidal or homicidal ideation intent or plan. Perceptions: Patient denies any auditory or visual hallucinations. Though content/process: There is no evidence of any delusional thought content and thought process is linear and goal-directed. Memory and concentration: AOX3, grossly intact for the purposes of this session. Can spell "WORLD" backwards correctly. Judgment and insight: Chronically poor, however has improved with guarded prognosis Impression: Major depressive disorder, without psychotic features r/o Delusional disorder Unspecified anxiety disorder Homelessness Plan: -Continue with discharge today as patient has improved and stabilized psychiatrically and is not currently an imminent threat to herself and/or others. -Continue medications: Abilify p.o. 10 mg daily for psychosis/mood stabilization, Effexor XR 300 mg daily for mood/anxiety, Remeron 15 mg nightly for sleep/mood/appetite. -Patient was counseled on the need for medication compliance and appropriate follow-up at mental health and also primary care for medical issues. Patient verbalized understanding and agreed. -Social work to arrange for and conduct family meeting to ensure safety upon discharge and answer any questions/concerns. Social work also to arrange for patients follow up appointments with [facility] for psychiatric care along with follow up with primary care provider. -Patient counseled on abstaining from recreational drugs and marijuana and alcohol. Was informed/educated on the adverse effects on their physical and mental health. Patient verbally agreed and understood. -Patient was instructed to return to the hospital or seek immediate medical care if their psychiatric or medical symptoms do worsen or reoccur. Allergies Allergy/AdvReac Type Severity Reaction Status Date / Time Sulfa (Sulfonamide Allergy Unknown Verified 01/20/24 15:13 Antibiotics) wheat Allergy Unknown Verified 01/20/24 15:13 Laboratory Results TSH 0.762 mIU/L (0.465-4.680) 01/22/24 09:15 Urine Color Light Yellow 01/21/24 12:10 Urine Appearance Cloudy (Clear) H 01/21/24 12:10 Urine pH 7.5 (5.0-8.0) 01/21/24 12:10 Ur Specific [place] 1.013 (1.001-1.035) 01/21/24 12:10 Urine Protein Negative (Negative) 01/21/24 12:10 Urine Glucose (UA) Negative (Negative) 01/21/24 12:10 Urine Ketones Negative (Negative) 01/21/24 12:10 Urine Blood Negative (Negative) 01/21/24 12:10 Urine Nitrite Negative (Negative) 01/21/24 12:10 Urine Bilirubin Negative (Negative) 01/21/24 12:10 Urine Urobilinogen 2.0 mg/dL (<2.0) 01/21/24 12:10 Ur Leukocyte Esterase Trace (Negative) H 01/21/24 12:10 Urine WBC 1 /hpf (0-5) 01/21/24 12:10 Amorphous Sediment Occasional /hpf (None) H 01/21/24 12:10 Urine Bacteria Occasional /hpf (None) H 01/21/24 12:10 Urine Mucus Rare /hpf (None) H 01/21/24 12:10 Urine Opiates Screen Not Detected (NotDetected) 01/20/24 12:45 Ur Oxycodone Screen Not Detected (NotDetected) 01/20/24 12:45 Urine Methadone Screen Not Detected (NotDetected) 01/20/24 12:45 Ur Barbiturates Screen Not Detected (NotDetected) 01/20/24 12:45 U Tricyclic Antidepress Not Detected (NotDetected) 01/20/24 12:45 Ur Phencyclidine Scrn Not Detected (NotDetected) 01/20/24 12:45 Ur Amphetamines Screen Not Detected (NotDetected) 01/20/24 12:45 U Methamphetamines Scrn Not Detected (NotDetected) 01/20/24 12:45 U Benzodiazepines Scrn Not Detected (NotDetected) 01/20/24 12:45 Urine Cocaine Screen Not Detected (NotDetected) 01/20/24 12:45 U Marijuana (THC) Screen Not Detected (NotDetected) 01/20/24 12:45 SARS-CoV-2 (PCR) Not Detected (Not Detectd) 01/20/24 15:03 Vital Signs Temp 98.1 F 01/30/24 06:52 Pulse 54 L 01/30/24 06:52 Resp 14 01/30/24 06:52 BP 104/68 01/30/24 06:52 Pulse Ox 97 01/30/24 06:52 FiO2 Patient Condition at Discharge: Stable Plan - Discharge Summary Discharge Rx Participant: Yes New Discharge Prescriptions: New ARIPiprazole [Abilify] 10 mg PO DAILY 30 Days #30 tab Terbinafine [LamISIL] 250 mg PO DAILY 25 Days #25 tab Mirtazapine [Remeron] 15 mg PO HS 30 Days #30 tab Venlafaxine HCl ER [Effexor XR] 300 mg PO DAILY 30 Days #60 cap Discharge Medication List ARIPiprazole [Abilify] 10 mg PO DAILY 30 Days #30 tab 01/30/24 [Rx] Mirtazapine [Remeron] 15 mg PO HS 30 Days #30 tab 01/30/24 [Rx] Terbinafine [LamISIL] 250 mg PO DAILY 25 Days #25 tab 01/30/24 [Rx] Venlafaxine HCl ER [Effexor XR] 300 mg PO DAILY 30 Days #60 cap 01/30/24 [Rx] Follow up Appointment(s)/Referral(s): [facility] [Outside] - 02/02/24 2:00 pm (with intake) Kar Martínez MD [Primary Care Provider] - 1-2 days Patient Instructions/Handouts: Depression (DC), Anxiety (GEN) Activity/Diet/Wound Care/Special Instructions: Avoid the use of street drugs and alcohol. Take all medications as prescribed. When you need refills of your medications,contact your outpatient medical provider or psychiatrist. Go to you scheduled outptient appointments for aftercare treatment. If symptoms return or become worse, call the crisis line [phone] or the [facility] Crisis Unit at [phone] or go to nearest Emergency room. National Suicide and Crisis Lifeline text 988. Discharge Disposition: HOME SELF-CARE
== END 2024-01-30 11:33 | disposition home or self-care (01) | DRG 751 ==
LOC: EC 11:54 → 3MHU 01-21 02:26
PROVIDERS: ADMIT Psychiatry & Neurology Psychiatry; ATTEND Psychiatry & Neurology Psychiatry
DX: F32.2 Major depressive disorder, single episode, severe without psychotic features (principal); F20.9 Schizophrenia, unspecified; F41.9 Anxiety disorder, unspecified; Z59.00 Homelessness unspecified; Z79.899 Other long term (current) drug therapy; Z87.891 Personal history of nicotine dependence; Z11.52 Encounter for screening for COVID-19; Z28.310 Unvaccinated for COVID-19; Z28.21 Immunization not carried out because of patient refusal; Z88.2 Allergy status to sulfonamides
CPT/HCPCS: 80306; 81001; 82075; 84443; 87635; 99285